=== PATIENT | male | born 1980 | race Caucasian/White ===

== ENCOUNTER 2017-04-09 10:26 | Inpatient (IN) | payer BC, OTHER ==
[2017-04-09 10:37] VITALS: BMI 27.7
[2017-04-09] MEDS ORDERED: KETOROLAC TROMETHAMINE 60 MG/2 ML VIAL IM ONE (10:42)
--- NOTE | 2017-04-09 10:45 | PDOC ---
History of Present Illness - General Chief Complaint: Pain Stated Complaint: ABDOMINAL PAIN Time Seen by Provider: 04/09/17 10:31 History Source: Patient Exam Limitations: No Limitations - History of Present Illness Travel History: No Initial Comments: 04/09/17 10:41 36y M no pmhx presents with lower abdominal pain. The pt states that he was fine until around 4pm yesterday when he started to feel pain n the lower abdomen. it came and went, lasting for seconds. when he went to bed it worsened and he vomited nbnb contents and felt better. the pain was about 8/10 at this point and nonradiating. he went to bed feeling a bit better, but still mild discomfort. this morning he drank some tea and the pain worsened. pt denies any fever/chills, diarrhea, meelan, bpr. he went to urgent care this morning and was referred to the ED. he also notes his urine is alittle dark pt denies any cp, sob, back pain, testicular pain, dysuria. Past History - Past Medical History Allergies/Adverse Reactions: Allergies Allergy/AdvReac Type Severity Reaction Status Date / Time No Known Allergies Allergy Verified 04/09/17 10:37 Home Medications: Ambulatory Orders NK [No Known Home Medication] 04/09/17 COPD: No - Immunization History TDAP Vaccination: Yes (JUNE 2016) - Suicide/Smoking/Psychosocial Hx Smoking History: Never smoked Hx Alcohol Use: Yes (SOCIAL) Drug/Substance Use Hx: No Substance Use Type: None Review of Systems - Review of Systems Able to Perform ROS?: Yes Comments:: 04/09/17 10:44 Constitutional - no reported Fever, Chills, HEENT: no reported vision changes, sore throat Respiratory: no reported cough, sob, hemoptysis Cardiac: no reported chest pain, palpitations, light headedness, leg swelling Abd/GI: +abd pain, nausea, vomiting, no reported blood per rectum, melena, diarrhea : no reported dysuria, frequency, discharge Musculskelatal - no reported back pain, joint swelling skin - no reported bruising, erythema, rash neurological: no reported headache, numbness, focal weakness, tingling, ataxia, hematologic: no reported anemia, easy bruising, easy bleeding *Physical Exam - Vital Signs Last Vital Signs Temp Pulse Resp BP Pulse Ox 99.7 F H 102 H 15 157/84 98 04/09/17 10:27 04/09/17 10:27 04/09/17 10:27 04/09/17 10:27 04/09/17 10:27 - Physical Exam Comments: 04/09/17 10:45 GENERAL: The patient is awake, alert, and fully oriented, Nontoxic - in no acute distress. HEAD: Normocephalic, atraumatic. EYES: extraocular movements intact, sclera anicteric, conjunctiva clear. ENT: Normal voice, Moist mucous membranes. NECK: Normal range of motion, supple LUNGS: Breath sounds equal, clear to auscultation bilaterally. No wheezes, no rhonchi, no rales. HEART: Regular rate and rhythm, normal S1 and S2 without murmur, rub or gallop. ABDOMEN: Soft, mild lower abd tenderness , normoactive bowel sounds. No guarding, no rebound. No CVA tenderness EXTREMITIES: Normal range of motion, no edema. No clubbing or cyanosis. No cords, erythema, or tenderness. NEUROLOGICAL: No facial assymetry, Normal speech, PSYCH: Normal mood, normal affect. SKIN: Warm, Dry, normal turgor, Heart Score/ECG Review - ECG Impressions Comment:: 04/09/17 14:39 Twelve-lead EKG was performed and reviewed by me. There is normal sinus rhythm with a normal rate. rate liliana 97 The axis is normal. The intervals are normal. There is normal R wave progression There are no ST or T wave abnormalities. Impression: Normal twelve-lead EKG ED Treatment Course - LABORATORY CBC & Chemistry Diagram: 04/09/17 10:50 04/09/17 10:50 Medical Decision Making - Medical Decision Making 04/09/17 10:45 differential for the pts symptoms includes kidney stones, diverticulitis will ck labs, ua will give toradol will reasess pt states he is not nauseus currently 04/09/17 12:06 pts albs reviewed noted for a significant elevation of WBCs to 23, neuts pending UA noted for +bili, pt w/o RUQ pain will ck CT abdomen to reasess pt currently asymptmoatic and feels hungry 04/09/17 13:10 ct noted free air in abdomen from possible sigmoid diverticulitis will draw lactic acid, blood cultures and will start pt on zosyn will notify surgery - [employer]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 04/09/17 13:[address] sprague rqeuests transfer to [facility] so that she can evaluate him there for possible OR immediately vs other plan case dw dr. baldwin (medical service) agree with admission and transfer to [facility] for further evaluation Case discussed in detail with admitting physician including history, physical exam and ancillary studies. Admitting physician has assumed care for the patient, will follow all pending diagnostics and will complete the evaluation and treatment. 04/09/17 15:42 dr. sprague here bedside evaluating the patient states pt can stay here at [facility] will watch pt here, and will do primary admission as it is primarily a surgical case. dr. hilario notified that this will be a surgical admission. *DC/Admit/Observation/Transfer Diagnosis at time of Disposition: Diverticulitis of intestine with perforation Qualifiers: Diverticulitis site: unspecified part of intestinal tract Diverticulitis bleeding: without bleeding Qualified Code(s): K57.80 - Diverticulitis of intestine, part unspecified, with perforation and abscess without bleeding - Discharge Dispostion Condition at time of disposition: Guarded Admit: Yes - Referrals - Patient Instructions - Post Discharge Activity
[2017-04-09] MEDS ORDERED: SODIUM CHLORIDE 1,000 ML IV ONE ×2 (10:54→13:25)
[2017-04-09] MEDS ORDERED: KETOROLAC TROMETHAMINE 30 MG/1 ML VIAL IVPUSH ONE (10:54)
[2017-04-09] MEDS ORDERED: KETOROLAC TROMETHAMINE 30 MG/1 ML VIAL ONE (10:54)
[2017-04-09 11:07] LABS: URINE APPEARANCE Clear; URINE BILIRUBIN 1+ (NEGATIVE); URINE BLOOD Negative (NEGATIVE); URINE GLUCOSE (UA) Negative (NEGATIVE); URINE KETONE Trace (NEGATIVE); URINE NITRITE Negative (NEGATIVE); URINE PROTEIN 1+ (NEGATIVE)
[2017-04-09 11:08] LABS: URINE COLOR YELLOW
[2017-04-09 11:10] LABS: HEMATOCRIT 43.6 % (35.4-49); HEMOGLOBIN 14.8 GM/dl (11.7-16.9); MCH 27.6 pg (25.7-33.7); MEAN CELL VOLUME 81.4 fl (80-96); MEAN PLT VOLUME 8.7 fl (7.5-11.1); PLATELET COUNT 234 K/MM3 (134-434); RBC 5.35 M/mm3 (4.00-5.60); RDW 11.9 % (11.9-15.9); WHITE BLOOD COUNT 23.5 K/mm3 (4.0-10.8)
[2017-04-09 11:26] LABS: ALBUMIN 4.4 g/dl (3.5-5.0); ALK PHOS 50 U/L (32-92); ANION GAP 10 (8-16); BILIRUBIN,TOTAL 1.4 mg/dl (0.2-1.0); BLOOD UREA NITROGEN 19 mg/dl (7-18); CALCIUM 9.3 mg/dl (8.4-10.2); CHLORIDE 102 mmol/L (98-107); CO2 24 mmol/L (22-28); GLUCOSE,RANDOM 116 mg/dl (74-106); POTASSIUM 3.8 mmol/L (3.5-5.1); SGOT/AST 26 U/L (10-42); SGPT/ALT 32 U/L (10-40); SODIUM 136 mmol/L (136-145); TOT PROT 7.4 g/dl (6.4-8.3)
[2017-04-09 12:34] LABS: URINE RBC 0-2 /hpf (0-3)
[2017-04-09 12:35] LABS: EPI CELLS 0-3 /HPF; URINE MUCUS 2+
[2017-04-09] MEDS ORDERED: PIPERACILLIN/TAZOB 4.5 GM/100 ML PREMIX BAG IVPB ONE (13:05)
[2017-04-09] MEDS ORDERED: PIPERACILLIN/TAZOB 4.5 GM 4.5 GM in DEXTROSE 5%-WATER - 100 ML IVPB ONE (13:30)
[2017-04-09] MEDS ORDERED: PIPERACILLIN/TAZOBACTAM 4.5 GM VIAL IVPB ONE (13:30)
[2017-04-09] MEDS ORDERED: SODIUM CHLORIDE 1,000 ML IV SCH ×2 (13:30)
[2017-04-09 13:58] LABS: INR 1.46 (0.82-1.09); PROTHROMBIN TIME (PATIENT) 16.2 SEC (10.2-13.0)
[2017-04-09 14:06] LABS: ACTIVATED PTT 29.6 SECONDS (24.0-38.9)
--- NOTE | 2017-04-09 15:19 | EKG ---
Test Reason : Blood Pressure : / mmHG Vent. Rate : 097 BPM Atrial Rate : 097 BPM P-R Int : 150 ms QRS Dur : 098 ms QT Int : 342 ms P-R-T Axes : 051 045 034 degrees QTc Int : 434 ms NORMAL SINUS RHYTHM NORMAL ECG NO PREVIOUS ECGS AVAILABLE Confirmed by ABEBA HENRY MD ([id number]) on 04/09/2017 3:19:21 PM Referred By: Newton HERNÁNDEZ Confirmed By:ABEBA HENRY MD
--- NOTE | 2017-04-09 15:54 | HP ---
Admitting History and Physical - Primary Care Physician PCP: between (was with Dr. Moran, plans to see Dr. Antionette Ramirez) - Admission Chief Complaint: hypogastric pain History of Present Illness: 36yo healthy M had pasta for dinner yesterday ~3pm, and later in the evening began having hypogastric pain. His also had some mild abdominal pain, so they thought it was something they both ate at first. His pain was dull with episodes of sharp exacerbation, without radiation, no urinary symptoms. He had a normal, soft bowel movement just before the pain started, and usually goes every day at least once without straining. Throughout the evening, the pain persisted, but he eventually tried to sleep. He did not take anything for it. He awoke ~2-3am to go to the bathroom, had soft stool, but also broke out in a sweat and felt warm, and vomited up the food he had eaten previously. He felt better afterward, the pain moved a bit upward into his central abdomen, and he was able to sleep better. In the morning, it was still feeling a little better, and he tried some plain chamomile tea, which made the pain come back a bit. He went to a local urgent care and was sent directly to the ER at [place]. In the ER, he was tachycardic ~102, had low-grade temp and a wbc of 23.5. Labs appeared somewhat dehydrated, and urine was dark. TBili was 1.4, other LFTs normal. CT was done with IV contrast only, showing mildly enlarged spleen, small right renal cyst, sigmoid diverticulitis with a mostly contained perforation in the pelvic mesentery, and a few locules of air in the nearby mesentery and above the liver. There is no lesley abscess or drainable fluid collection, and only a very small amount of fluid present in the pelvis and mesentery. He was given 2L of crystalloid and started on Zosyn 4.5g in the ER about 2pm. He also had a dose of Toradol, and has had minimal to no pain since. He has no nausea, and does not feel particularly warm or cold. For primary care, he has not seen Dr. Moran in some time, and believes he will be changing providers secondary to insurance issues. He plans to most likely see Dr. Ramirez, his 's PMD, after discharge. History Source: Patient Limitations to Obtaining History: No Limitations - Past Medical History Gastrointestinal: No: Constipation Dermatology: Yes: Eczema (more as child, still has some patches around ankles and on right thigh) - Past Surgical History Past Surgical History: Yes: Tonsillectomy (at 16) Additional Past Surgical History: right 4th finger tendon repair - Smoking History Smoking history: Never smoked Have you smoked in the past 12 months: No - Alcohol/Substance Use Hx Alcohol Use: Yes (SOCIAL) History of Substance Use: reports: Marijuana (weekends (1-2 days/wk)) Date of Last Use: 04/07/17 - Social History Usual Living Arrangement: Yes: With Spouse ADL: Independent 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 denies: Chills, Loss of Appetite Eyes: reports: Other (wears glasses). denies: Recent Change in Vision HENT: denies: Difficult Swallowing, Hearing Loss, Nasal Congestion, Throat Pain Neck: denies: Swollen Glands, Tenderness Cardiovascular: denies: Chest Pain, Palpitations Respiratory: denies: Cough, SOB Gastrointestinal: reports: Abdominal Pain (with hpi), Vomiting (once, with hpi) . denies: Constipation, Diarrhea, Nausea, Vomiting Blood Genitourinary: denies: Burning, Dysuria, Frequency, Urgency Musculoskeletal: denies: Back Pain, Joint Pain, Muscle Pain Integumentary: reports: Eczema, Pallor ( reports last night), Pruritis (some , at eczematous areas). denies: Rash Neurological: denies: Dizziness, Headache Psychiatric: denies: Anxiety, Depression Physical Examination Vital Signs: Vital Signs Temperature 99.3 F 04/09/17 14:26 Pulse Rate 94 H 04/09/17 14:26 Respiratory Rate 15 04/09/17 14:26 Blood Pressure 109/70 04/09/17 14:26 O2 Sat by Pulse Oximetry (%) 99 04/09/17 14:26 Vital Signs Period Temp Pulse Resp BP Sys/Kolb Pulse Ox Last 24 Hr 99.3 F-99.8 F 90-102 15-15 107-157/70-84 98-99 Constitutional: Yes: Well Nourished, No Distress, Calm Eyes: Yes: Conjunctiva Clear, EOM Intact. No: Sclera Icterus HENT: Yes: Atraumatic, Normocephalic Neck: Yes: Supple, Trachea Midline Cardiovascular: Yes: Tachycardia. No: Pulse Irregular, Murmur Respiratory: Yes: Regular, CTA Bilaterally Gastrointestinal: Yes: Soft, Hypoactive Bowel Sounds, Tenderness (suprapubic, mild bilateral pelvic/lower quadrants, no rebound or guarding; LLQ refers to suprapubic area). No: Distention (minimal to none), Tenderness, Epigastrium, Tenderness, Rebound ...Rectal Exam: Yes: Deferred Renal/: No: CVA Tenderness - Left, CVA Tenderness - Right Musculoskeletal: No: Back Pain (no direct tenderness), Joint Swelling Extremities: No: Cool, Cyanosis Edema: No Peripheral Pulses WNL: Yes Integumentary: Yes: Rash (small areas of scattered healing scratch berry at right anterior mcginnis just above ankle, mild eczematous patches at left ankle and right anterior thigh), Tattoos (L shoulder) Neurological: Yes: Alert, Oriented Psychiatric: Yes: Alert, Oriented Labs: CBC, BMP 04/09/17 10:50 04/09/17 10:50 CMP Sodium 136 mmol/L (136-145) 04/09/17 10:50 Potassium 3.8 mmol/L (3.5-5.1) 04/09/17 10:50 Chloride 102 mmol/L (98-107) 04/09/17 10:50 Carbon Dioxide 24 mmol/L (22-28) 04/09/17 10:50 Anion Gap 10 (8-16) 04/09/17 10:50 BUN 19 mg/dl (7-18) H 04/09/17 10:50 Creatinine 1.0 mg/dl (0.6-1.3) 04/09/17 10:50 Creat Clearance w eGFR > 60 (>60) 04/09/17 10:50 Random Glucose 116 mg/dl (74-106) H 04/09/17 10:50 Lactic Acid 1.1 mmol/L (0.4-2.0) 04/09/17 13:15 Calcium 9.3 mg/dl (8.4-10.2) 04/09/17 10:50 Total Bilirubin 1.4 mg/dl (0.2-1.0) H 04/09/17 10:50 AST 26 U/L (10-42) 04/09/17 10:50 ALT 32 U/L (10-40) 04/09/17 10:50 Alkaline Phosphatase 50 U/L (32-92) 04/09/17 10:50 Total Protein 7.4 g/dl (6.4-8.3) 04/09/17 10:50 Albumin 4.4 g/dl (3.5-5.0) 04/09/17 10:50 Urine Test Results Urine Color Yellow 04/09/17 10:50 Urine Appearance Clear 04/09/17 10:50 Urine pH 7.0 (4.5-8) 04/09/17 10:50 Ur Specific Moss 1.020 (1.005-1.025) 04/09/17 10:50 Urine Protein 1+ (NEGATIVE) H 04/09/17 10:50 Urine Glucose (UA) Negative (NEGATIVE) 04/09/17 10:50 Urine Ketones Trace (NEGATIVE) 04/09/17 10:50 Urine Blood Negative (NEGATIVE) 04/09/17 10:50 Urine Nitrite Negative (NEGATIVE) 04/09/17 10:50 Urine Bilirubin 1+ (NEGATIVE) H 04/09/17 10:50 Ur Leukocyte Esterase Negative (NEGATIVE) 04/09/17 10:50 Urine RBC 0-2 /hpf (0-3) 04/09/17 10:50 Urine WBC 3-5 (0-2) 04/09/17 10:50 Ur Epithelial Cells 0-3 /HPF 04/09/17 10:50 Urine Mucus 2+ 04/09/17 10:50 Imaging - Results Cat Scan: Report Reviewed, Image Reviewed Problem List - Problems (1) Diverticulitis of large intestine with perforation without abscess or bleeding Assessment/Plan: admit to surgery NPO/IVF - generous hydration IV antibiotics - consult ID to continue Zosyn IV nonnarcotic pain meds prn for now serial exams trend labs GI/DVT prophylaxis OOB/ambulation Discussed with pt and possibility of needing surgery urgently or emergently , if gross perforation or clinical deterioration - this would include laparotomy with partial colon resection, possible colostomy, possible diverting ileostomy, and drain placement. Briefly discussed potential risks including but not limited to bleeding, infection, bowel injury or leak, intraabdominal/pelvic abscess, hernia, anastomotic leak or breakdown, possible need for additional surgery for stoma reversal. Pt understands and agrees with plan for now - no OR unless evidence of lesley perforation, decline in clinical status, or lack of improvement in labs and clinical exam on antibiotics. Anticipate pt will spend at least two midnights in hospital. No po until no pain or tenderness. Ultimately, will plan to complete abx po once tolerating for total 10-14 days, as per ID. Code(s): K57.20 - DVTRCLI OF LG INT W PERFORATION AND ABSCESS W/O BLEEDING (2) Abdominal pain, suprapubic Code(s): R10.2 - PELVIC AND PERINEAL PAIN (3) Dehydration Assessment/Plan: rehydration with IV fluids monitor UOP Code(s): E86.0 - DEHYDRATION (4) Sinus tachycardia Code(s): R00.0 - TACHYCARDIA, UNSPECIFIED (5) Leukocytosis Code(s): D72.829 - ELEVATED WHITE BLOOD CELL COUNT, UNSPECIFIED Qualifiers: Leukocytosis type: bandemia Qualified Code(s): D72.825 - Bandemia
[2017-04-09] MEDS ORDERED: ONDANSETRON 4 MG/2 ML VIAL IVPUSH PRN (16:26)
[2017-04-09] MEDS ORDERED: LACTATED RINGERS SOLUTION 1,000 ML IV SCH (16:30)
--- NOTE | 2017-04-09 20:50 | CON.ID ---
Consult Consult Specialty:: infectious diseases Referred by:: Dr Salter Reason for Consultation:: abd pain - History of Present Illness Chief Complaint: abd pain History of Present Illness: 36yo healthy admitted because of hypogastric pain. According to the patient the pain was intense sat night followed by vomiting .He thought that the pain would go away and waited all night Pain did not go away and patient came to the hospital yesterday. patient was worked up in the hospital and found to have diverticulitis with contained perforation . Before coming to the hospital patient went to urgent care and was send to the hospital patient currently feels better and says his pain has now shifted to midline patient was tachy with fever and leukocytosis ct showed the findings of contained perf and diverticulitis patient has been evaluated by surgery also patient mentions that he had vomiting episodes - History Source History Provided By: Patient Limitations to Obtaining History: No Limitations - Past Medical History Gastrointestinal: No: Constipation Dermatology: Yes: Eczema (more as child, still has some patches around ankles and on right thigh) - Past Surgical History Past Surgical History: Yes: Tonsillectomy (at 16) - Alcohol/Substance Use Hx Alcohol Use: Yes (SOCIAL) History of Substance Use: reports: Marijuana (weekends (1-2 days/wk)) Date of Last Use: 04/07/17 - Smoking History Smoking history: Never smoked Have you smoked in the past 12 months: No - Social History ADL: Independent 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 Home Medications - Allergies Allergies/Adverse Reactions: Allergies Allergy/AdvReac Type Severity Reaction Status Date / Time No Known Allergies Allergy Verified 04/09/17 10:37 - Home Medications Home Medications: Ambulatory Orders NK [No Known Home Medication] 04/09/17 Family Disease History - Family Disease History Family Disease History: CA: Father (lung, alive at 86), Mother (breast in late 20s (1980s), alive) Review of Systems - Review of Systems Constitutional: reports: No Symptoms Eyes: reports: No Symptoms HENT: reports: No Symptoms Neck: reports: No Symptoms Cardiovascular: reports: No Symptoms Respiratory: reports: No Symptoms Gastrointestinal: reports: Abdominal Pain, Nausea, Vomiting Genitourinary: reports: No Symptoms Musculoskeletal: reports: No Symptoms Integumentary: reports: No Symptoms Neurological: reports: No Symptoms Endocrine: reports: No Symptoms Hematology/Lymphatic: reports: No Symptoms Psychiatric: reports: No Symptoms Physical Exam Vital Signs: Vital Signs Temperature 98.9 F 04/09/17 16:12 Pulse Rate 91 H 04/09/17 16:12 Respiratory Rate 16 04/09/17 16:23 Blood Pressure 133/76 04/09/17 16:12 O2 Sat by Pulse Oximetry (%) 98 04/09/17 16:23 Constitutional: Yes: Well Nourished, Calm, Mild Distress Eyes: Yes: Conjunctiva Clear HENT: Yes: Atraumatic, Normocephalic Cardiovascular: Yes: Regular Rate and Rhythm Respiratory: Yes: Regular, CTA Bilaterally Gastrointestinal: Yes: Distention, Hypoactive Bowel Sounds, Tenderness Musculoskeletal: Yes: WNL Extremities: Yes: WNL Neurological: Yes: Alert, Oriented Psychiatric: Yes: Alert, Oriented Labs: CBC, BMP 04/09/17 10:50 04/09/17 10:50 Imaging - Results Chest X-ray: Report Reviewed, Image Reviewed Cat Scan: Report Reviewed, Image Reviewed Assessment/Plan Problem List - Problems (1) Diverticulitis of large intestine with perforation without abscess or bleeding Code(s): K57.20 - DVTRCLI OF LG INT W PERFORATION AND ABSCESS W/O BLEEDING (2) Abdominal pain, suprapubic Code(s): R10.2 - PELVIC AND PERINEAL PAIN (3) Dehydration Code(s): E86.0 - DEHYDRATION (4) Sinus tachycardia Code(s): R00.0 - TACHYCARDIA, UNSPECIFIED (5) Leukocytosis Code(s): D72.829 - ELEVATED WHITE BLOOD CELL COUNT, UNSPECIFIED Qualifiers: Leukocytosis type: bandemia Qualified Code(s): D72.825 - Bandemia looking at the picture and patient having findings of pneumoperitoneum and contained perf with diverticulitis,patient is going to need abx and very close monitoring at the moment i have discussed with the patient that we will see how the patient does on abx plan continue current abx as per surgery very close monitoring on wbc and general condition rest as per primary team wbc has started to improve
[2017-04-09] MEDS: ACETAMINOPHEN 1000 MG/100 ML VIAL (NON FORMULARY) IVPB PRN (21:30)
[2017-04-09] MEDS: PIPERACILLIN/TAZOB 4.5 GM 4.5 GM in DEXTROSE 5%-WATER - 100 ML IVPB SCH (21:31)
[2017-04-09] MEDS: PIPERACILLIN/TAZOB 4.5 GM 4.5 GM/100 ML BAG IVPB SCH (21:43)
[2017-04-09] MEDS ORDERED: FAMOTIDINE IV 20 MG/12 ML VIAL IVPUSH SCH (22:00)
[2017-04-09] MEDS: FAMOTIDINE 20 MG/50 ML IVPB 20 MG/50 ML MG IVPB SCH (22:46)
[2017-04-10] MEDS: ACETAMINOPHEN 1000 MG/100 ML VIAL (NON FORMULARY) IVPB PRN ×2 (04:31→18:32)
[2017-04-10] MEDS: PIPERACILLIN/TAZOB 4.5 GM 4.5 GM/100 ML BAG IVPB SCH ×3 (05:09→20:47)
[2017-04-10 07:55] LABS: ACTIVATED PTT 29.5 SECONDS (24.0-38.9)
[2017-04-10 08:00] LABS: INR 1.57 (0.82-1.09); PROTHROMBIN TIME (PATIENT) 17.4 SEC (10.2-13.0)
[2017-04-10 08:12] LABS: ALBUMIN 3.3 g/dl (3.5-5.0); ALK PHOS 43 U/L (32-92); ANION GAP 4 (8-16); BILIRUBIN,TOTAL 1.5 mg/dl (0.2-1.0); BLOOD UREA NITROGEN 14 mg/dl (7-18); CHLORIDE 107 mmol/L (98-107); CO2 23 mmol/L (22-28); CREATININE 1.1 mg/dl (0.6-1.3); GLUCOSE,RANDOM 106 mg/dl (74-106); MAGNESIUM 1.7 mg/dL (1.8-2.4); POTASSIUM 3.8 mmol/L (3.5-5.1); SGOT/AST 18 U/L (10-42); SGPT/ALT 20 U/L (10-40); SODIUM 134 mmol/L (136-145); TOT PROT 5.9 g/dl (6.4-8.3)
[2017-04-10 08:26] LABS: HEMATOCRIT 36.4 % (35.4-49); HEMOGLOBIN 12.9 GM/dl (11.7-16.9); MCH 28.9 pg (25.7-33.7); MCHC 35.3 g/dl (32.0-35.9); MEAN CELL VOLUME 81.6 fl (80-96); MEAN PLT VOLUME 9.1 fl (7.5-11.1); PLATELET COUNT 150 K/MM3 (134-434); RBC 4.46 M/mm3 (4.00-5.60); RDW 12.3 % (11.9-15.9); WHITE BLOOD COUNT 16.2 K/mm3 (4.0-10.8)
[2017-04-10] MEDS ORDERED: MAGNESIUM SULF 50% (8.12 MEQ/2 ML-1 GM VIAL) IVPB ONE ×2 (09:04→10:00)
--- NOTE | 2017-04-10 09:11 | PN ---
Progress Note, Physician Chief Complaint: lower abdominal pain History of Present Illness: No overnight events. Pt has had 2 doses of IV Tylenol. Pain is a bit better, "more sore now than sharp." Has moved upward a little bit. No nausea or vomiting. Passing gas, but no BMs here yet. No fever. Urinating at least 4-5 times, much marine extension agent. Has been OOB to bathroom. Able to sleep. - Current Medication List Current Medications: Active Medications Acetaminophen (Ofirmev Injection -) 1,000 mg IVPB Q6H PRN PRN Reason: PAIN Last Admin: 04/10/17 04:31 Dose: 1,000 mg Famotidine/Sodium Chloride (Pepcid 20 Mg Premixed Ivpb -) 20 mg in 50 mls @ 144 mls/hr IVPB BID NATALIE Last Admin: 04/09/17 22:46 Dose: 144 mls/hr Piperacillin/Tazobactam/Dextrose (Zosyn 4.5gm Ivpb (Premix)) 4.5 gm in 100 mls @ 200 mls/hr IVPB Q8H NATALIE PRN Reason: Protocol Last Admin: 04/10/17 05:09 Dose: 200 mls/hr Potassium Chloride/Dextrose/Sod Cl (D5-1/2ns+20 Meq Kcl -) 20 meq in 1,000 mls @ 125 mls/hr IV ASDIR NATALIE Magnesium Sulfate (Magnesium Sulfate) 2 gm IVPB ONCE ONE Stop: 04/10/17 09:05 Ondansetron HCl (Zofran Injection) 4 mg IVPUSH Q6H PRN PRN Reason: NAUSEA - Objective Vital Signs: Vital Signs Temperature 99.0 F 04/10/17 04:00 Pulse Rate 94 H 04/10/17 04:00 Respiratory Rate 16 04/10/17 08:36 Blood Pressure 130/71 04/10/17 04:00 O2 Sat by Pulse Oximetry (%) 98 04/09/17 16:23 Vital Signs Period Temp Pulse Resp BP Sys/Kolb Pulse Ox Last 24 Hr 98.9 F-99.8 F 90-102 15-18 107-157/70-84 98-99 Constitutional: Yes: Well Nourished, No Distress, Calm Eyes: Yes: Conjunctiva Clear, EOM Intact. No: Sclera Icterus HENT: Yes: Atraumatic, Normocephalic Cardiovascular: Yes: Tachycardia (mild). No: Pulse Irregular Respiratory: Yes: Regular, CTA Bilaterally Gastrointestinal: Yes: Normal Bowel Sounds, Soft, Distention (minimal), Tenderness (suprapubic and to bilateral sides, no R/G, subjectively less tender than yesterday, objectively about the same). No: Tenderness, Epigastrium ...Rectal Exam: Yes: Deferred Extremities: Yes: Other (SCDs on). No: Cool, Cyanosis Integumentary: Yes: Tattoos. No: Jaundice Neurological: Yes: Alert, Oriented Psychiatric: Yes: Alert, Oriented Labs: CBC, BMP 04/10/17 07:30 04/10/17 07:30 INR, PTT INR 1.57 (0.82-1.09) H 04/10/17 07:30 CMP Sodium 134 mmol/L (136-145) L 04/10/17 07:30 Potassium 3.8 mmol/L (3.5-5.1) 04/10/17 07:30 Chloride 107 mmol/L (98-107) 04/10/17 07:30 Carbon Dioxide 23 mmol/L (22-28) 04/10/17 07:30 Anion Gap 4 (8-16) L 04/10/17 07:30 BUN 14 mg/dl (7-18) D 04/10/17 07:30 Creatinine 1.1 mg/dl (0.6-1.3) 04/10/17 07:30 Creat Clearance w eGFR > 60 (>60) 04/10/17 07:30 Random Glucose 106 mg/dl (74-106) 04/10/17 07:30 Lactic Acid 1.1 mmol/L (0.4-2.0) 04/09/17 13:15 Calcium 8.0 mg/dl (8.4-10.2) L 04/10/17 07:30 Magnesium 1.7 mg/dL (1.8-2.4) L 04/10/17 07:30 Total Bilirubin 1.5 mg/dl (0.2-1.0) H 04/10/17 07:30 AST 18 U/L (10-42) D 04/10/17 07:30 ALT 20 U/L (10-40) D 04/10/17 07:30 Alkaline Phosphatase 43 U/L (32-92) 04/10/17 07:30 Total Protein 5.9 g/dl (6.4-8.3) L D 04/10/17 07:30 Albumin 3.3 g/dl (3.5-5.0) L D 04/10/17 07:30 wbc down, renal fxn about the same INR still elevated bili still mildly elevated Mg low - will replete Problem List - Problems (1) Diverticulitis of large intestine with perforation without abscess or bleeding Assessment/Plan: continue NPO/IVF - will change fluids to maintenance IV antibiotics - Zosyn per ID IV nonnarcotic pain meds prn for now serial exams trend labs GI/DVT prophylaxis OOB/ambulation - encouraged to be up walking Feeling a little better, exam stable to slightly improved. Replete magnesium, follow labs Code(s): K57.20 - DVTRCLI OF LG INT W PERFORATION AND ABSCESS W/O BLEEDING (2) Abdominal pain, suprapubic Code(s): R10.2 - PELVIC AND PERINEAL PAIN (3) Dehydration Assessment/Plan: continue IV fluids monitor UOP - most voids not recorded, as pt reports 4-5 since yesterday follow labs Code(s): E86.0 - DEHYDRATION (4) Sinus tachycardia Assessment/Plan: improving Code(s): R00.0 - TACHYCARDIA, UNSPECIFIED (5) Leukocytosis Assessment/Plan: improving Code(s): D72.829 - ELEVATED WHITE BLOOD CELL COUNT, UNSPECIFIED Qualifiers: Leukocytosis type: bandemia Qualified Code(s): D72.825 - Bandemia
[2017-04-10] MEDS: FAMOTIDINE 20 MG/50 ML IVPB 20 MG/50 ML MG IVPB SCH ×2 (09:19→23:29)
[2017-04-10] MEDS: D5-1/2NS+20 MEQ KCL - 20 MEQ/1,000 ML INFUS.BAG IV SCH (09:50)
[2017-04-10] MEDS ORDERED: PT OWN MED DRAWER 7, Y5N ONE (20:45)
[2017-04-11] MEDS: ACETAMINOPHEN 1000 MG/100 ML VIAL (NON FORMULARY) IVPB PRN (01:39)
[2017-04-11] MEDS: PIPERACILLIN/TAZOB 4.5 GM 4.5 GM/100 ML BAG IVPB SCH ×3 (05:30→22:01)
[2017-04-11] MEDS ORDERED: PT OWN MED DRAWER 7, Y5N ONE ×2 (06:07→21:58)
[2017-04-11 08:12] LABS: BASO % 0.2 % (0-2.0); EOS % 0.7 % (0-4.5); HEMATOCRIT 37.6 % (35.4-49); HEMOGLOBIN 12.7 GM/dl (11.7-16.9); LYMPH % 8.4 % (8-40); MCH 27.8 pg (25.7-33.7); MCHC 33.8 g/dl (32.0-35.9); MEAN CELL VOLUME 82.2 fl (80-96); MEAN PLT VOLUME 8.1 fl (7.5-11.1); MONO % 5.5 % (3.8-10.2); NEUT % 85.2 % (42.8-82.8); PLATELET COUNT 193 K/MM3 (134-434); RBC 4.57 M/mm3 (4.00-5.60); RDW 12.2 % (11.9-15.9); WHITE BLOOD COUNT 13.9 K/mm3 (4.0-10.8)
[2017-04-11 08:30] LABS: INR 1.35 (0.82-1.09)
[2017-04-11 08:44] LABS: ALBUMIN 2.9 g/dl (3.5-5.0); ALK PHOS 71 U/L (32-92); ANION GAP 7 (8-16); BILIRUBIN,TOTAL 1.1 mg/dl (0.2-1.0); BLOOD UREA NITROGEN 10 mg/dl (7-18); CALCIUM 8.2 mg/dl (8.4-10.2); CHLORIDE 106 mmol/L (98-107); CO2 23 mmol/L (22-28); GLUCOSE,RANDOM 122 mg/dl (74-106); MAGNESIUM 2.1 mg/dL (1.8-2.4); POTASSIUM 4.3 mmol/L (3.5-5.1); SGOT/AST 20 U/L (10-42); SGPT/ALT 18 U/L (10-40); SODIUM 136 mmol/L (136-145); TOT PROT 5.7 g/dl (6.4-8.3)
[2017-04-11] MEDS: FAMOTIDINE 20 MG/50 ML IVPB 20 MG/50 ML MG IVPB SCH ×2 (10:11→22:00)
--- NOTE | 2017-04-11 10:23 | PN ---
Progress Note, Physician Chief Complaint: lower abdominal pain History of Present Illness: No overnight events. Pain is better, did not use Tylenol until last evening and overnight. No nausea or vomiting. Passing gas, but no BMs yet. 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 Has been ambulating in halls. - Current Medication List Current Medications: Active Medications Acetaminophen (Ofirmev Injection -) 1,000 mg IVPB Q6H PRN PRN Reason: PAIN Last Admin: 04/11/17 01:39 Dose: 1,000 mg Famotidine/Sodium Chloride (Pepcid 20 Mg Premixed Ivpb -) 20 mg in 50 mls @ 144 mls/hr IVPB BID NATALIE Last Admin: 04/11/17 10:11 Dose: 144 mls/hr Piperacillin/Tazobactam/Dextrose (Zosyn 4.5gm Ivpb (Premix)) 4.5 gm in 100 mls @ 200 mls/hr IVPB Q8H NATALIE PRN Reason: Protocol Last Admin: 04/11/17 05:30 Dose: 200 mls/hr Potassium Chloride/Dextrose/Sod Cl (D5-1/2ns+20 Meq Kcl -) 20 meq in 1,000 mls @ 125 mls/hr IV ASDIR NATALIE Last Admin: 04/10/17 09:50 Dose: 125 mls/hr Ondansetron HCl (Zofran Injection) 4 mg IVPUSH Q6H PRN PRN Reason: NAUSEA - Objective Vital Signs: Vital Signs Temperature 99.1 F 04/11/17 05:58 Pulse Rate 86 04/11/17 05:58 Respiratory Rate 18 04/11/17 09:10 Blood Pressure 126/78 04/11/17 05:58 O2 Sat by Pulse Oximetry (%) 98 04/11/17 09:10 Constitutional: Yes: Well Nourished, No Distress, Calm Eyes: Yes: Conjunctiva Clear, EOM Intact. No: Sclera Icterus HENT: Yes: Atraumatic, Normocephalic Cardiovascular: Yes: Tachycardia (mild - improved). No: Pulse Irregular Respiratory: Yes: Regular, CTA Bilaterally Gastrointestinal: Yes: Soft, Hypoactive Bowel Sounds (little more in upper abdomen), Tenderness (suprapubic and LLQ, mild LUQ, no R/G). No: Distention ( minimal), Tenderness, Epigastrium, Tenderness, Rebound ...Rectal Exam: Yes: Deferred Genitourinary: No: CVA Tenderness - Left, CVA Tenderness - Right Extremities: No: Cool, Cyanosis Edema: No Peripheral Pulses WNL: Yes Integumentary: Yes: Tattoos. No: Jaundice Neurological: Yes: Alert, Oriented Psychiatric: Yes: Alert, Oriented Labs: CBC, BMP 04/11/17 07:30 04/11/17 07:30 INR, PTT INR 1.35 (0.82-1.09) H 04/11/17 07:30 CMP Sodium 136 mmol/L (136-145) 04/11/17 07:30 Potassium 4.3 mmol/L (3.5-5.1) 04/11/17 07:30 Chloride 106 mmol/L (98-107) 04/11/17 07:30 Carbon Dioxide 23 mmol/L (22-28) 04/11/17 07:30 Anion Gap 7 (8-16) L 04/11/17 07:30 BUN 10 mg/dl (7-18) D 04/11/17 07:30 Creatinine 1.0 mg/dl (0.6-1.3) 04/11/17 07:30 Creat Clearance w eGFR > 60 (>60) 04/11/17 07:30 Random Glucose 122 mg/dl (74-106) H 04/11/17 07:30 Lactic Acid 1.1 mmol/L (0.4-2.0) 04/09/17 13:15 Calcium 8.2 mg/dl (8.4-10.2) L 04/11/17 07:30 Magnesium 2.1 mg/dL (1.8-2.4) D 04/11/17 07:30 Total Bilirubin 1.1 mg/dl (0.2-1.0) H D 04/11/17 07:30 AST 20 U/L (10-42) 04/11/17 07:30 ALT 18 U/L (10-40) 04/11/17 07:30 Alkaline Phosphatase 71 U/L (32-92) D 04/11/17 07:30 Total Protein 5.7 g/dl (6.4-8.3) L 04/11/17 07:30 Albumin 2.9 g/dl (3.5-5.0) L 04/11/17 07:30 wbc down, INR down renal function ok K+, Mg normal bili down Problem List - Problems (1) Diverticulitis of large intestine with perforation without abscess or bleeding Assessment/Plan: continue NPO/IVF today, still with pain and tenderness IV antibiotics - Zosyn per ID IV nonnarcotic pain meds prn for now serial exams trend labs GI/DVT prophylaxis OOB/ambulation - encouraged to be up walking will order IS to encourage deep breathing Feeling better, exam improved. Will consider clears tomorrow pending status Overall making progress on abx Code(s): K57.20 - DVTRCLI OF LG INT W PERFORATION AND ABSCESS W/O BLEEDING (2) Abdominal pain, suprapubic Code(s): R10.2 - PELVIC AND PERINEAL PAIN (3) Dehydration Assessment/Plan: continue IV fluids resolving follow labs Code(s): E86.0 - DEHYDRATION (4) Sinus tachycardia Assessment/Plan: improving Code(s): R00.0 - TACHYCARDIA, UNSPECIFIED (5) Leukocytosis Assessment/Plan: improving Code(s): D72.829 - ELEVATED WHITE BLOOD CELL COUNT, UNSPECIFIED Qualifiers: Leukocytosis type: bandemia Qualified Code(s): D72.825 - Bandemia
[2017-04-11] MEDS: D5-1/2NS+20 MEQ KCL - 20 MEQ/1,000 ML INFUS.BAG IV SCH ×2 (14:00→21:59)
[2017-04-11] MEDS: PIPERACILLIN/TAZOB 4.5 GM 4.5 GM in DEXTROSE 5%-WATER - 100 ML IVPB SCH (15:13)
--- NOTE | 2017-04-11 18:56 | PN ---
Progress Note, Physician History of Present Illness: starting to feel better abd pain better - Current Medication List Current Medications: Active Medications Acetaminophen (Ofirmev Injection -) 1,000 mg IVPB Q6H PRN PRN Reason: PAIN Last Admin: 04/11/17 01:39 Dose: 1,000 mg Famotidine/Sodium Chloride (Pepcid 20 Mg Premixed Ivpb -) 20 mg in 50 mls @ 144 mls/hr IVPB BID NATALIE Last Admin: 04/11/17 10:11 Dose: 144 mls/hr Piperacillin/Tazobactam/Dextrose (Zosyn 4.5gm Ivpb (Premix)) 4.5 gm in 100 mls @ 200 mls/hr IVPB Q8H NATALIE PRN Reason: Protocol Last Admin: 04/11/17 14:25 Dose: 200 mls/hr Potassium Chloride/Dextrose/Sod Cl (D5-1/2ns+20 Meq Kcl -) 20 meq in 1,000 mls @ 125 mls/hr IV ASDIR NATALIE Last Admin: 04/11/17 14:00 Dose: 125 mls/hr Ondansetron HCl (Zofran Injection) 4 mg IVPUSH Q6H PRN PRN Reason: NAUSEA - Objective Vital Signs: Vital Signs Temperature 99.0 F 04/11/17 13:50 Pulse Rate 116 H 04/11/17 13:50 Respiratory Rate 17 04/11/17 13:50 Blood Pressure 136/89 04/11/17 13:50 O2 Sat by Pulse Oximetry (%) 97 04/11/17 13:50 Constitutional: Yes: No Distress, Calm Cardiovascular: Yes: Regular Rate and Rhythm Respiratory: Yes: Regular, CTA Bilaterally Gastrointestinal: Yes: Soft, Hypoactive Bowel Sounds Musculoskeletal: Yes: WNL Extremities: Yes: WNL Neurological: Yes: Alert, Oriented Psychiatric: Yes: Alert, Oriented Labs: CBC, BMP 04/11/17 07:30 04/11/17 07:30 INR, PTT INR 1.35 (0.82-1.09) H 04/11/17 07:30 Assessment/Plan Problem List - Problems (1) Diverticulitis of large intestine with perforation without abscess or bleeding Code(s): K57.20 - DVTRCLI OF LG INT W PERFORATION AND ABSCESS W/O BLEEDING (2) Abdominal pain, suprapubic Code(s): R10.2 - PELVIC AND PERINEAL PAIN (3) Dehydration Code(s): E86.0 - DEHYDRATION (4) Sinus tachycardia Code(s): R00.0 - TACHYCARDIA, UNSPECIFIED (5) Leukocytosis Code(s): D72.829 - ELEVATED WHITE BLOOD CELL COUNT, UNSPECIFIED Qualifiers: Leukocytosis type: bandemia Qualified Code(s): D72.825 - Bandemia plan continue current abx continue monitoring wbc surgery on case continue as per surgery
[2017-04-12] MEDS: ACETAMINOPHEN 1000 MG/100 ML VIAL (NON FORMULARY) IVPB PRN (04:15)
[2017-04-12] MEDS ORDERED: PT OWN MED DRAWER 7, Y5N ONE ×3 (05:07→21:16)
[2017-04-12] MEDS: PIPERACILLIN/TAZOB 4.5 GM 4.5 GM/100 ML BAG IVPB SCH ×3 (05:09→21:56)
[2017-04-12 09:01] LABS: BASO % 0.2 % (0-2.0); EOS % 1.7 % (0-4.5); HEMATOCRIT 35.8 % (35.4-49); HEMOGLOBIN 12.4 GM/dl (11.7-16.9); LYMPH % 11.5 % (8-40); MCH 28.6 pg (25.7-33.7); MCHC 34.7 g/dl (32.0-35.9); MEAN CELL VOLUME 82.4 fl (80-96); MONO % 9.3 % (3.8-10.2); NEUT % 77.3 % (42.8-82.8); PLATELET COUNT 197 K/MM3 (134-434); RBC 4.34 M/mm3 (4.00-5.60); RDW 12.1 % (11.9-15.9); WHITE BLOOD COUNT 12.7 K/mm3 (4.0-10.8)
[2017-04-12 09:07] LABS: ANION GAP 6 (8-16); BLOOD UREA NITROGEN 9 mg/dl (7-18); CALCIUM 8.3 mg/dl (8.4-10.2); CHLORIDE 107 mmol/L (98-107); CO2 24 mmol/L (22-28); CREATININE 0.9 mg/dl (0.6-1.3); GLUCOSE,RANDOM 112 mg/dl (74-106); POTASSIUM 4.1 mmol/L (3.5-5.1); SODIUM 137 mmol/L (136-145)
--- NOTE | 2017-04-12 09:24 | PN ---
Progress Note, Physician Chief Complaint: lower abdominal pain History of Present Illness: No overnight events. Pain is better, did not use Tylenol all day yesterday, had one early this am after waking from a weird dream with some mild cramping. No nausea or vomiting. Passing gas, had 2 BMs yesterday. Voiding light yellow. Has been ambulating in halls. Overall feeling better. - Current Medication List Current Medications: Active Medications Acetaminophen (Ofirmev Injection -) 1,000 mg IVPB Q6H PRN PRN Reason: PAIN Last Admin: 04/12/17 04:15 Dose: 1,000 mg Famotidine/Sodium Chloride (Pepcid 20 Mg Premixed Ivpb -) 20 mg in 50 mls @ 144 mls/hr IVPB BID NATALIE Last Admin: 04/11/17 22:00 Dose: 144 mls/hr Piperacillin/Tazobactam/Dextrose (Zosyn 4.5gm Ivpb (Premix)) 4.5 gm in 100 mls @ 200 mls/hr IVPB Q8H NATALIE PRN Reason: Protocol Last Admin: 04/12/17 05:09 Dose: 200 mls/hr Potassium Chloride/Dextrose/Sod Cl (D5-1/2ns+20 Meq Kcl -) 20 meq in 1,000 mls @ 125 mls/hr IV ASDIR NATALIE Last Admin: 04/11/17 21:59 Dose: 125 mls/hr Ondansetron HCl (Zofran Injection) 4 mg IVPUSH Q6H PRN PRN Reason: NAUSEA - Objective Vital Signs: Vital Signs Temperature 98.7 F 04/12/17 06:00 Pulse Rate 82 04/12/17 06:00 Respiratory Rate 18 04/12/17 06:00 Blood Pressure 135/76 04/12/17 06:00 O2 Sat by Pulse Oximetry (%) 98 04/12/17 06:00 Constitutional: Yes: Well Nourished, No Distress, Calm Eyes: Yes: Conjunctiva Clear, EOM Intact HENT: Yes: Atraumatic, Normocephalic Cardiovascular: Yes: Regular Rate and Rhythm, Tachycardia (minimal). No: Murmur Respiratory: Yes: Regular, CTA Bilaterally Gastrointestinal: Yes: Normal Bowel Sounds, Soft, Tenderness (mild suprapubic and LLQ, less to right side - less than yesterday). No: Distention, Tenderness , Epigastrium, Tenderness, Rebound Extremities: No: Cool, Cyanosis Edema: No Integumentary: No: Jaundice, Rash Neurological: Yes: Alert, Oriented Psychiatric: Yes: Alert, Oriented Labs: CBC, BMP 04/12/17 07:30 04/12/17 07:30 wbc decreasing renal function normal lytes, glucose ok Problem List - Problems (1) Diverticulitis of large intestine with perforation without abscess or bleeding Assessment/Plan: improving - will start clears for lunch continue IV antibiotics - Zosyn per ID Tylenol prn - change to po serial exams trend labs GI/DVT prophylaxis OOB/ambulation - encouraged to be up walking IS for pulmonary tachycardia resolved Feeling better, progressing well If tolerating diet tomorrow, consider changing to po abx and d/c planning Code(s): K57.20 - DVTRCLI OF LG INT W PERFORATION AND ABSCESS W/O BLEEDING (2) Abdominal pain, suprapubic Code(s): R10.2 - PELVIC AND PERINEAL PAIN (3) Dehydration Assessment/Plan: continue IVF for now resolved Code(s): E86.0 - DEHYDRATION (4) Sinus tachycardia Assessment/Plan: resolved Code(s): R00.0 - TACHYCARDIA, UNSPECIFIED (5) Leukocytosis Assessment/Plan: almost normal Code(s): D72.829 - ELEVATED WHITE BLOOD CELL COUNT, UNSPECIFIED Qualifiers: Leukocytosis type: bandemia Qualified Code(s): D72.825 - Bandemia
[2017-04-12] MEDS: D5-1/2NS+20 MEQ KCL - 20 MEQ/1,000 ML INFUS.BAG IV SCH (09:25)
[2017-04-12] MEDS ORDERED: ACETAMINOPHEN 325 MG TABLET (FP) PO PRN (09:26)
[2017-04-12] MEDS: FAMOTIDINE 20 MG/50 ML IVPB 20 MG/50 ML MG IVPB SCH ×2 (09:26→23:02)
--- NOTE | 2017-04-12 10:42 | PN ---
Progress Note, Physician History of Present Illness: did well yesterday patient had cramping abd pain early this morning had small bm overall has been improving wbc trending down - Current Medication List Current Medications: Active Medications Acetaminophen (Tylenol -) 650 mg PO Q6H PRN PRN Reason: PAIN Famotidine/Sodium Chloride (Pepcid 20 Mg Premixed Ivpb -) 20 mg in 50 mls @ 144 mls/hr IVPB BID NATALIE Last Admin: 04/12/17 09:26 Dose: 144 mls/hr Piperacillin/Tazobactam/Dextrose (Zosyn 4.5gm Ivpb (Premix)) 4.5 gm in 100 mls @ 200 mls/hr IVPB Q8H NATALEI PRN Reason: Protocol Last Admin: 04/12/17 05:09 Dose: 200 mls/hr Potassium Chloride/Dextrose/Sod Cl (D5-1/2ns+20 Meq Kcl -) 20 meq in 1,000 mls @ 125 mls/hr IV ASDIR NATALIE Last Admin: 04/12/17 09:25 Dose: 125 mls/hr Ondansetron HCl (Zofran Injection) 4 mg IVPUSH Q6H PRN PRN Reason: NAUSEA - Objective Vital Signs: Vital Signs Temperature 98.7 F 04/12/17 06:00 Pulse Rate 82 04/12/17 06:00 Respiratory Rate 18 04/12/17 06:00 Blood Pressure 135/76 04/12/17 06:00 O2 Sat by Pulse Oximetry (%) 98 04/12/17 06:00 Constitutional: Yes: No Distress, Calm Cardiovascular: Yes: Regular Rate and Rhythm Respiratory: Yes: Regular, CTA Bilaterally Gastrointestinal: Yes: Distention, Hypoactive Bowel Sounds Musculoskeletal: Yes: WNL Extremities: Yes: WNL Neurological: Yes: Alert, Oriented Psychiatric: Yes: Alert, Oriented Labs: CBC, BMP 04/12/17 07:30 04/12/17 07:30 INR, PTT INR 1.35 (0.82-1.09) H 04/11/17 07:30 Assessment/Plan Problem List - Problems (1) Diverticulitis of large intestine with perforation without abscess or bleeding Code(s): K57.20 - DVTRCLI OF LG INT W PERFORATION AND ABSCESS W/O BLEEDING (2) Abdominal pain, suprapubic Code(s): R10.2 - PELVIC AND PERINEAL PAIN (3) Dehydration Code(s): E86.0 - DEHYDRATION (4) Sinus tachycardia Code(s): R00.0 - TACHYCARDIA, UNSPECIFIED (5) Leukocytosis Code(s): D72.829 - ELEVATED WHITE BLOOD CELL COUNT, UNSPECIFIED Qualifiers: Leukocytosis type: bandemia Qualified Code(s): D72.825 - Bandemia wbc trending down plan continue current abx continue monitoring wbc rest continue as per surgery patient going in right direction
[2017-04-13] MEDS ORDERED: PT OWN MED DRAWER 7, Y5N ONE ×2 (05:49→14:04)
[2017-04-13] MEDS: PIPERACILLIN/TAZOB 4.5 GM 4.5 GM/100 ML BAG IVPB SCH ×2 (06:01→14:16)
[2017-04-13] MEDS ORDERED: PIPERACILLIN/TAZOBACTAM 4.5 GM VIAL IVPB ONE ×2 (09:15)
--- NOTE | 2017-04-13 09:23 | PN ---
Progress Note, Physician Chief Complaint: lower abdominal pain History of Present Illness: No overnight events. No nausea or vomiting. Has been ambulating in halls. Had large BM yesterday, started liquid, transitioned into formed stool. [place] much better afterward. This am, had sudden pain in suprapubic area, walking made a little better, tried to have BM, but without result. Currently feeling pain in suprapubic and lower pelvic areas. Had jello only this morning for breakfast so far. - Current Medication List Current Medications: Active Medications Acetaminophen (Tylenol -) 650 mg PO Q6H PRN PRN Reason: PAIN Famotidine/Sodium Chloride (Pepcid 20 Mg Premixed Ivpb -) 20 mg in 50 mls @ 144 mls/hr IVPB BID NATALIE Last Admin: 04/12/17 23:02 Dose: 144 mls/hr Piperacillin/Tazobactam/Dextrose (Zosyn 4.5gm Ivpb (Premix)) 4.5 gm in 100 mls @ 200 mls/hr IVPB Q8H NATALIE PRN Reason: Protocol Last Admin: 04/13/17 06:01 Dose: 200 mls/hr Potassium Chloride/Dextrose/Sod Cl (D5-1/2ns+20 Meq Kcl -) 20 meq in 1,000 mls @ 125 mls/hr IV ASDIR NATALIE Last Admin: 04/12/17 09:25 Dose: 125 mls/hr Ondansetron HCl (Zofran Injection) 4 mg IVPUSH Q6H PRN PRN Reason: NAUSEA - Objective Vital Signs: Vital Signs Temperature 98.5 F 04/13/17 06:00 Pulse Rate 89 04/13/17 06:00 Respiratory Rate 18 04/13/17 08:34 Blood Pressure 134/79 04/13/17 06:00 O2 Sat by Pulse Oximetry (%) 99 04/13/17 08:34 Constitutional: Yes: Well Nourished, Calm, Moderate Distress (secondary to pain) Eyes: Yes: Conjunctiva Clear, EOM Intact HENT: Yes: Atraumatic, Normocephalic Cardiovascular: Yes: Tachycardia (mild). No: Pulse Irregular Respiratory: Yes: Regular, CTA Bilaterally Gastrointestinal: Yes: Soft, Hypoactive Bowel Sounds, Tenderness (suprapubic and to right side more than left, no rebound). No: Distention (minimal to none) ...Rectal Exam: Yes: Deferred Extremities: No: Cool, Cyanosis Edema: No Integumentary: Yes: Tattoos. No: Jaundice, Rash Neurological: Yes: Alert, Oriented Psychiatric: Yes: Alert, Oriented Labs: CBC pending - ....Imaging Cat Scan: Pending Problem List - Problems (1) Diverticulitis of large intestine with perforation without abscess or bleeding Assessment/Plan: was tolerating clears, with sudden pain this am abdomen not markedly distended, but is locally tender continue IV antibiotics - Zosyn per ID will give morphine now/prn and return to npo cbc pending repeat CT scan now with PO/IV contrast further plans pending results Code(s): K57.20 - DVTRCLI OF LG INT W PERFORATION AND ABSCESS W/O BLEEDING (2) Abdominal pain, suprapubic Code(s): R10.2 - PELVIC AND PERINEAL PAIN (3) Dehydration Code(s): E86.0 - DEHYDRATION (4) Sinus tachycardia Code(s): R00.0 - TACHYCARDIA, UNSPECIFIED (5) Leukocytosis Code(s): D72.829 - ELEVATED WHITE BLOOD CELL COUNT, UNSPECIFIED Qualifiers: Leukocytosis type: bandemia Qualified Code(s): D72.825 - Bandemia
[2017-04-13] MEDS: FAMOTIDINE 20 MG/50 ML IVPB 20 MG/50 ML MG IVPB SCH (09:29)
[2017-04-13] MEDS ORDERED: morphine CARPU-JECT 2 MG/1 ML DISP.SYRIN IVPUSH PRN (09:40)
[2017-04-13] MEDS ORDERED: morphine SULFATE 4 MG/ML VIAL IVPUSH ONE (10:00)
[2017-04-13] MEDS: D5-1/2NS+20 MEQ KCL - 20 MEQ/1,000 ML INFUS.BAG IV SCH (10:15)
[2017-04-13 10:23] LABS: BASO % 1.1 % (0-2.0); HEMATOCRIT 38.7 % (35.4-49); HEMOGLOBIN 12.9 GM/dl (11.7-16.9); LYMPH % 15.4 % (8-40); MCH 27.5 pg (25.7-33.7); MCHC 33.4 g/dl (32.0-35.9); MEAN CELL VOLUME 82.3 fl (80-96); MEAN PLT VOLUME 8.3 fl (7.5-11.1); MONO % 7.5 % (3.8-10.2); PLATELET COUNT 241 K/MM3 (134-434); RBC 4.71 M/mm3 (4.00-5.60); RDW 12.1 % (11.9-15.9); WHITE BLOOD COUNT 8.1 K/mm3 (4.0-10.8)
[2017-04-13] MEDS: HYDROmorphone HCL CARPU-JECT 1 MG/1 ML DISP.SYRIN IVPB PRN ×3 (10:51→12:07)
--- NOTE | 2017-04-13 13:21 | PN ---
Progress Note, Physician History of Present Illness: patient being transferred to [place] for surgery - Current Medication List Current Medications: Active Medications Acetaminophen (Tylenol -) 650 mg PO Q6H PRN PRN Reason: PAIN Famotidine/Sodium Chloride (Pepcid 20 Mg Premixed Ivpb -) 20 mg in 50 mls @ 144 mls/hr IVPB BID NATALIE Last Admin: 04/13/17 09:29 Dose: 144 mls/hr Piperacillin/Tazobactam/Dextrose (Zosyn 4.5gm Ivpb (Premix)) 4.5 gm in 100 mls @ 200 mls/hr IVPB Q8H NATALIE PRN Reason: Protocol Last Admin: 04/13/17 06:01 Dose: 200 mls/hr Potassium Chloride/Dextrose/Sod Cl (D5-1/2ns+20 Meq Kcl -) 20 meq in 1,000 mls @ 125 mls/hr IV ASDIR [facility] Last Admin: 04/13/17 10:15 Dose: 125 mls/hr Morphine Sulfate (Morphine Injection -) 2 mg IVPUSH Q3H PRN PRN Reason: PAIN Ondansetron HCl (Zofran Injection) 4 mg IVPUSH Q6H PRN PRN Reason: NAUSEA - Objective Vital Signs: Vital Signs Temperature 98.5 F 04/13/17 06:00 Pulse Rate 104 H 04/13/17 12:13 Respiratory Rate 16 04/13/17 12:13 Blood Pressure 145/82 04/13/17 12:13 O2 Sat by Pulse Oximetry (%) 96 04/13/17 12:13 Labs: CBC, BMP 04/13/17 10:10 04/12/17 07:30 INR, PTT INR 1.35 (0.82-1.09) H 04/11/17 07:30
[2017-04-13] MEDS ORDERED: LACTATED RINGERS SOLUTION 1,000 ML/1,000 ML INFUS.BAG IV STA ×3 (16:02→23:54)
[2017-04-13] MEDS ORDERED: LACTATED RINGERS SOLUTION 1,000 ML/1,000 ML INFUS.BAG IV SCH (16:15)
--- NOTE | 2017-04-13 17:01 | PN ---
Progress Note (short form) - Note Progress Note: Pt had CT done, which shows pneumoperitoneum and more gas in pelvic mesentery than previously. He also now has temp 99s-100s and is tachycardic. Transferring to [facility] for surgical exploration. Spoke with patient's by phone. Will obtain consent when patient arrives. Plan exploratory laparotomy, bowel resection, possible ostomy. Problem List - Problems (1) Diverticulitis of large intestine with perforation without abscess or bleeding Code(s): K57.20 - DVTRCLI OF LG INT W PERFORATION AND ABSCESS W/O BLEEDING (2) Abdominal pain, suprapubic Code(s): R10.2 - PELVIC AND PERINEAL PAIN (3) Dehydration Code(s): E86.0 - DEHYDRATION (4) Sinus tachycardia Code(s): R00.0 - TACHYCARDIA, UNSPECIFIED (5) Leukocytosis Code(s): D72.829 - ELEVATED WHITE BLOOD CELL COUNT, UNSPECIFIED Qualifiers: Leukocytosis type: bandemia Qualified Code(s): D72.825 - Bandemia
[2017-04-13] MEDS ORDERED: MIDAZOLAM HCL 2 MG/2 ML SINGLE DOSE VIAL ONE ×2 (19:35→22:37)
[2017-04-13] MEDS ORDERED: VECURONIUM BROMIDE 10 MG VIAL ONE (19:36)
[2017-04-13] MEDS ORDERED: LIDOCAINE HCL/PF 2% SDV 5ML VIAL ONE (19:36)
[2017-04-13] MEDS ORDERED: DEXAMETHASONE SOD PHOSPHATE 4 MG/1 ML VIAL ONE ×2 (19:36→22:08)
[2017-04-13] MEDS ORDERED: ETOMIDATE 20 MG/10 ML AMPUL IVPUSH ONE (19:36)
[2017-04-13] MEDS ORDERED: SODIUM CHLORIDE 0.9% P/F 10 ML VIAL IJ ONE (19:36)
[2017-04-13] MEDS ORDERED: ONDANSETRON 4 MG/2 ML VIAL ONE ×2 (19:36→22:08)
[2017-04-13] MEDS ORDERED: fentaNYL CITRATE 250 MCG/5 ML VIAL ONE (20:19)
[2017-04-13] MEDS ORDERED: ROCURONIUM BROMIDE 50 MG/5 ML VIAL ONE (20:51)
[2017-04-13] MEDS ORDERED: PROPOFOL 20 ML ONE (22:15)
[2017-04-13] MEDS: PROPOFOL 1,000,000 MCG/100 ML VIAL IVPUSH SCH (23:00)
[2017-04-13] MEDS ORDERED: HYDROmorphone HCL CARPU-JECT 2 MG/1 ML DISP.SYRIN IVPUSH PRN ×2 (23:08→23:54)
[2017-04-13] MEDS ORDERED: PROPOFOL 1000 MG/100 ML VIAL IVPB ONE (23:10)
[2017-04-13] MEDS ORDERED: PROPOFOL 1,000,000 MCG/100 ML VIAL IVPUSH SCH (23:15)
[2017-04-13] MEDS ORDERED: LACTATED RINGERS SOLUTION 1,000 ML IV SCH ×3 (23:15→23:54)
--- NOTE | 2017-04-13 23:30 | CONSULT ---
Consult Consult Specialty:: Pulm/CCM Reason for Consultation:: s/p exploratory Lap and colectomy with colostomy - History of Present Illness History of Present Illness: 36yom with no PMHx who presented to [place] with lower abdominal pain n/v. He was found to have diverticulitis on CT. This am c/o increased abd pain. CT showed pneumoperitoneum and e/o diverticulitis rupture. He was transferred to [facility] for exploratory lap. He is now s/p ex-lap with partial colectomy and colostomy formation and kept intubated. He is transferred to ICU for post-op care In OR EBL~ 300 with 850cc ascites fluid. UOP 400 cc and received 2800cc fluid. - History Source History Provided By: Medical Record - Past Medical History Gastrointestinal: No: Constipation Dermatology: Yes: Eczema (more as child, still has some patches around ankles and on right thigh) - Past Surgical History Past Surgical History: Yes: Tonsillectomy (at 16) - Alcohol/Substance Use Hx Alcohol Use: Yes (SOCIAL) History of Substance Use: reports: Marijuana (weekends (1-2 days/wk)) Date of Last Use: 04/07/17 - Smoking History Smoking history: Never smoked Have you smoked in the past 12 months: No - Social History ADL: Independent Occupation: [employer] Medications - Allergies Allergies/Adverse Reactions: Allergies Allergy/AdvReac Type Severity Reaction Status Date / Time No Known Allergies Allergy Verified 04/09/17 10:37 - Home Medications Home Medications: Ambulatory Orders NK [No Known Home Medication] 04/09/17 Family Disease History - Family Disease History Family Disease History: CA: Father (lung, alive at 86), Mother (breast in late 20s (1980s), alive) Review of Systems Unable to obtain ROS, reason: Unable intubated Physical Exam Vital Signs: Vital Signs Temperature 100 F H 04/13/17 17:46 Pulse Rate 120 H 04/13/17 17:46 Respiratory Rate 18 04/13/17 17:46 Blood Pressure 120/66 04/13/17 17:46 O2 Sat by Pulse Oximetry (%) 94 L 04/13/17 17:46 Constitutional: Yes: Well Nourished, No Distress, Calm Eyes: Yes: WNL HENT: Yes: Atraumatic, Normocephalic, Other (orally intubated) Neck: Yes: Trachea Midline Cardiovascular: Yes: Regular Rate and Rhythm, S1 Respiratory: Yes: CTA Bilaterally, Intubated Gastrointestinal: Yes: Soft, Other (Mdline abd incision with LLQ colostomy- pin and patent) Renal/: Yes: [place] Present Extremities: Yes: WNL Edema: No Peripheral Pulses WNL: Yes Wound/Incision: Yes: Clean/Dry, Dressing Dry and Intact Neurological: Yes: Other (Sedated on Propofol drip) Labs: CBC, BMP 04/13/17 10:10 04/12/17 07:30 CBC,CMP WBC 8.1 K/mm3 (4.0-10.8) D 04/13/17 10:10 RBC 4.71 M/mm3 (4.00-5.60) 04/13/17 10:10 Hgb 12.9 GM/dl (11.7-16.9) 04/13/17 10:10 Hct 38.7 % (35.4-49) 04/13/17 10:10 MCV 82.3 fl (80-96) 04/13/17 10:10 MCH 27.5 pg (25.7-33.7) 04/13/17 10:10 MCHC 33.4 g/dl (32.0-35.9) 04/13/17 10:10 RDW 12.1 % (11.9-15.9) 04/13/17 10:10 Plt Count 241 K/MM3 (134-434) D 04/13/17 10:10 MPV 8.3 fl (7.5-11.1) 04/13/17 10:10 Absolute Neuts (auto) 6.0 # (42.8-82.8) L 04/13/17 10:10 Absolute Lymphs (auto) 1.2 # (8-40) L 04/13/17 10:10 Absolute Monos (auto) 0.6 # 04/13/17 10:10 Absolute Eos (auto) 0.2 # 04/13/17 10:10 Absolute Basos (auto) 0.1 # (0.1-1) 04/13/17 10:10 Neutrophils % 74.0 % (42.8-82.8) 04/13/17 10:10 Neutrophils % (Manual) 80.0 % (42.8-82.8) 04/09/17 10:50 Band Neutrophils % 8.0 % (0-10) 04/09/17 10:50 Lymphocytes % 15.4 % (8-40) D 04/13/17 10:10 Lymphocytes % (Manual) 6.0 % (8-40) L 04/09/17 10:50 Monocytes % 7.5 % (3.8-10.2) 04/13/17 10:10 Monocytes % (Manual) 6 % (3.8-10.2) 04/09/17 10:50 Eosinophils % 2.0 % (0-4.5) 04/13/17 10:10 Basophils % 1.1 % (0-2.0) D 04/13/17 10:10 Sodium 137 mmol/L (136-145) 04/12/17 07:30 Potassium 4.1 mmol/L (3.5-5.1) 04/12/17 07:30 Chloride 107 mmol/L (98-107) 04/12/17 07:30 Carbon Dioxide 24 mmol/L (22-28) 04/12/17 07:30 Anion Gap 6 (8-16) L 04/12/17 07:30 BUN 9 mg/dl (7-18) 04/12/17 07:30 Creatinine 0.9 mg/dl (0.6-1.3) 04/12/17 07:30 Creat Clearance w eGFR > 60 (>60) 04/11/17 07:30 Random Glucose 112 mg/dl (74-106) H 04/12/17 07:30 Lactic Acid 1.1 mmol/L (0.4-2.0) 04/09/17 13:15 Calcium 8.3 mg/dl (8.4-10.2) L 04/12/17 07:30 Magnesium 2.1 mg/dL (1.8-2.4) D 04/11/17 07:30 Total Bilirubin 1.1 mg/dl (0.2-1.0) H D 04/11/17 07:30 AST 20 U/L (10-42) 04/11/17 07:30 ALT 18 U/L (10-40) 04/11/17 07:30 Alkaline Phosphatase 71 U/L (32-92) D 04/11/17 07:30 Total Protein 5.7 g/dl (6.4-8.3) L 04/11/17 07:30 Albumin 2.9 g/dl (3.5-5.0) L 04/11/17 07:30 Current Medications Acetaminophen (Tylenol -) 650 mg PO Q6H PRN PRN Reason: PAIN Hydromorphone HCl (Dilaudid Injection -) 2 mg IVPUSH [id number] PRN PRN Reason: PAIN Famotidine/Sodium Chloride (Pepcid 20 Mg Premixed Ivpb -) 20 mg in 50 mls @ 144 mls/hr IVPB BID NATALIE Last Admin: 04/13/17 09:29 Dose: 144 mls/hr Piperacillin/Tazobactam/Dextrose (Zosyn 4.5gm Ivpb (Premix)) 4.5 gm in 100 mls @ 200 mls/hr IVPB Q8H NATLAIE PRN Reason: Protocol Last Admin: 04/13/17 14:16 Dose: 200 mls/hr Propofol (Diprivan -) 1,000,000 mcg in 100 mls @ 5.715 mls/hr IVPUSH TITR NATALIE; 10 MCG/KG/MIN PRN Reason: Protocol Lactated Ringer's (Lactated Ringers Solution) 1,000 ml in 1,000 mls @ 1,000 mls /hr IV ONCE STA Stop: 04/14/17 00:41 Lactated Ringer's (Lactated Ringers Solution) 1,000 mls @ 200 mls/hr IV ASDIR NATALIE Morphine Sulfate (Morphine Injection -) 2 mg IVPUSH Q3H PRN PRN Reason: PAIN Last Admin: 04/13/17 16:24 Dose: 2 mg Ondansetron HCl (Zofran Injection) 4 mg IVPUSH Q6H PRN PRN Reason: NAUSEA Initial Vital Signs Temp Pulse Resp BP Pulse Ox 99.7 F H 102 H 15 157/84 98 04/09/17 10:27 04/09/17 10:27 04/09/17 10:27 04/09/17 10:27 04/09/17 10:27 Imaging - Results Chest X-ray: Report Reviewed Cat Scan: Report Reviewed Problem List - Problems (1) Abdominal pain, suprapubic Code(s): R10.2 - PELVIC AND PERINEAL PAIN (2) Diverticulitis of intestine with perforation Code(s): K57.80 - DVTRCLI OF INTEST, PART UNSP, W PERF AND ABSCESS W/O BLEED Qualifiers: Diverticulitis site: unspecified part of intestinal tract Diverticulitis bleeding: without bleeding Qualified Code(s): K57.80 - Diverticulitis of intestine, part unspecified, with perforation and abscess without bleeding (3) Diverticulitis of large intestine with perforation without abscess or bleeding Code(s): K57.20 - DVTRCLI OF LG INT W PERFORATION AND ABSCESS W/O BLEEDING (4) Leukocytosis Code(s): D72.829 - ELEVATED WHITE BLOOD CELL COUNT, UNSPECIFIED Qualifiers: Leukocytosis type: bandemia Qualified Code(s): D72.825 - Bandemia (5) Sinus tachycardia Code(s): R00.0 - TACHYCARDIA, UNSPECIFIED Assessment/Plan 36yom with no PMHx admitted with abd pain c/b perforated bowel now s/p ex-lap with sigmoid colectomy and colostomy formation. He is transferred to ICU intubated for post-op care. Plan: Resp: Intubated -LTVV -Pulm toilet -Sedation for vent synchrony with propofol -SBT for extubation in am -ABG -CXR GI: Post-op sigmoid colectomy and colostomy formation -NGT to LWS -Assess for bleeding -Fluid bolus and IVF for post-op 3rd spacing -Monitor I+O's -Cont empiric antibiotics with zosyn -Pain management-prn Fent/Dilaudid pushes -Monitor CBC and lactate Proph: DVT and GI ANDRIA Yeh CC time 35mins
--- NOTE | 2017-04-13 23:58 | OP ---
Operative Note - Note: Operative Date: 04/13/17 Pre-Operative Diagnosis: perforated sigmoid diverticulitis Operation: sigmoidectomy with colostomy (Gerri's procedure) Findings: sigmoid perforation in pelvis with gross contamination; ~800ml ascites suctioned out, culture taken on entry; resection of affected segment and end colostomy performed; 57mm ostomy appliance used; skin packed open above and below umbilicus Post-Operative Diagnosis: Same as Pre-op Surgeon: Dom Avalos Telephony Engineer: Ibrahima Macedo Anesthesiologist/MANIFEST/ORDER ORGANIZER PRINT ORDERS: William Flores Anesthesia: General Specimens Removed: sigmoid colon to pathology; peritoneal fluid culture to micro Estimated Blood Loss (mls): 300 Drains & Tubes with Location: NG, Hatch, colostomy Drains, Volume Out (mls): 400 (UOP) Fluid Volume Replaced (mls): 2,800 (crystalloid) Operative Report Dictated: Yes
[2017-04-14 00:18] LABS: ARTERIAL BLD GAS O2 SATURATION 98.9 % (90-98.9); ARTERIAL BLOOD GAS BASE EXCESS -3.3 meq/l (-2-2); ARTERIAL BLOOD GAS PCO2 35.2 mmHg (35-45); ARTERIAL BLOOD GAS pH 7.38 (7.35-7.45)
[2017-04-14 00:20] LABS: ALLENS TEST POSITIVE
[2017-04-14] MEDS ORDERED: PIPERACILLIN/TAZOB 4.5 GM 4.5 GM/100 ML BAG IVPB SCH (02:00)
[2017-04-14] MEDS: HYDROmorphone HCL CARPU-JECT 2 MG/1 ML DISP.SYRIN IVPUSH PRN ×5 (02:00→22:29)
[2017-04-14] MEDS: PROPOFOL 1,000,000 MCG/100 ML VIAL IVPUSH SCH (02:30)
[2017-04-14] MEDS ORDERED: LACTATED RINGERS SOLUTION 1,000 ML/1,000 ML INFUS.BAG IV STA (04:36)
[2017-04-14] MEDS: PIPERACILLIN/TAZOB 4.5 GM 4.5 GM/100 ML BAG IVPB SCH ×3 (06:06→22:41)
[2017-04-14 06:39] LABS: BASO % 0.2 % (0-2.0); EOS % 0.1 % (0-4.5); HEMATOCRIT 41.1 % (35.4-49); HEMOGLOBIN 13.8 GM/dL (11.7-16.9); MCH 27.6 pg (25.7-33.7); MCHC 33.6 g/dl (32.0-35.9); MEAN CELL VOLUME 82.1 fl (80-96); MEAN PLT VOLUME 7.9 fl (7.5-11.1); MONO % 8.5 % (3.8-10.2); NEUT % 83.2 % (42.8-82.8); PLATELET COUNT 290 K/MM3 (134-434); RDW 13.6 % (11.9-15.9); WHITE BLOOD COUNT 13.4 K/mm3 (4.0-10.0)
[2017-04-14 07:00] LABS: ANION GAP 9 (8-16); BLOOD UREA NITROGEN 10 mg/dL (7-18); CALCIUM 7.4 mg/dL (8.5-10.1); CHLORIDE 106 mmol/L (98-107); CO2 25 mmol/L (21-32); CREATININE 0.8 mg/dL (0.7-1.3); GLUCOSE,RANDOM 124 mg/dL (74-106); MAGNESIUM 1.4 mg/dL (1.8-2.4); POTASSIUM 4.5 mmol/L (3.5-5.1); SODIUM 140 mmol/L (136-145)
[2017-04-14] MEDS ORDERED: SODIUM CHLORIDE 1,000 ML IV STA ×2 (09:29→13:08)
[2017-04-14] MEDS ORDERED: PT OWN MED DRAWER 7, Y5N ONE ×2 (09:44→21:44)
[2017-04-14] MEDS ORDERED: FAMOTIDINE 20 MG/50 ML IVPB 20 MG/50 ML MG IVPB SCH (10:00)
[2017-04-14] MEDS: MAGNESIUM SULF 50% (8.12 MEQ/2 ML-1 GM VIAL) IVPB SCH ×2 (10:02→14:26)
[2017-04-14] MEDS: MUPIROCIN 2% TOPICAL OINTMENT FOR DECOLONIZATION NS SCH ×2 (10:03→22:40)
[2017-04-14] MEDS: SODIUM CHLORIDE 1,000 ML IV SCH (10:04)
[2017-04-14] MEDS: FAMOTIDINE IV 20 MG/12 ML VIAL IVPUSH SCH ×2 (10:10→22:39)
--- NOTE | 2017-04-14 10:52 | PN ---
Progress Note (short form) - Note Progress Note: Anesthesia post op note POD#1. S/P sigmoidectomy with colostomy (Gerri's procedure) under GA. VSS. Intubated, sedated. Consider extubation today. No apparent post anesthesia complications. Signed off.
--- NOTE | 2017-04-14 10:56 | PN ---
Progress Note (short form) - Note Progress Note: PULMONARY/CCM Pt seen and examined in the ICU. s/p ex-lap found to have sigmoid perforation with gross contamination s/p resection/end colostomy. Remained intubated, awake off sedation, following commands. Tolerated CPAP/PS and subsequently extubated. Last Vital Signs Temp Pulse Resp BP Pulse Ox 99.2 F 117 H 20 122/64 97 04/14/17 10:00 04/14/17 10:00 04/14/17 10:00 04/14/17 10:00 04/14/17 09:55 Intake & Output 04/11/17 04/12/17 04/13/17 04/14/17 23:59 23:59 23:59 23:59 Intake Total 1500 2275 8450 5940 Output Total 1050 4080 365 Balance 1500 1225 4370 5575 Weight 94.546 kg Gen: intubated, awake Heart: tachycardic, regular Lung: decreased breath sounds at the bases Abd: soft, +ostomy pink Ext: no edema CBC, BMP 04/14/17 05:15 04/14/17 05:15 Active Medications Chlorhexidine Gluconate (Hibiclens For Decolonization -) 1 applic TP HS NATALIE Hydromorphone HCl (Dilaudid Injection -) 1 mg IVPUSH Q4H PRN PRN Reason: PAIN Last Admin: 04/14/17 10:03 Dose: 1 mg Propofol (Diprivan -) 1,000,000 mcg in 100 mls @ 5.715 mls/hr IVPUSH TITR NATALIE; 10 MCG/KG/MIN PRN Reason: Protocol Last Admin: 04/14/17 02:30 Dose: 34.99 mcg/kg/min, 19.998 mls/hr Famotidine (Pepcid 20 Mg/12 Ml Push) 20 mg in 12 mls @ 144 mls/hr IVPUSH BID NATALIE Last Admin: 04/14/17 10:10 Dose: 144 mls/hr Piperacillin/Tazobactam/Dextrose (Zosyn 4.5gm Ivpb (Premix)) 4.5 gm in 100 mls @ 200 mls/hr IVPB TID NATALIE PRN Reason: Protocol Last Admin: 04/14/17 06:06 Dose: 200 mls/hr Sodium Chloride (Normal Saline -) 1,000 mls @ 200 mls/hr IV ASDIR [facility] Last Admin: 04/14/17 10:04 Dose: 200 mls/hr Magnesium Sulfate (Magnesium Sulfate) 2 gm IVPB Q4H [facility] Stop: 04/14/17 13:31 Last Admin: 04/14/17 10:02 Dose: 2 gm Mupirocin (Bactroban Ointment (For Decolonization) -) 1 applic NS BID [facility] Stop: 04/19/17 09:59 Last Admin: 04/14/17 10:03 Dose: 1 applic A/P Perforated Sigmoid Colon Peritonitis Sepsis s/ p ex-lap/sigmoid colectomy/colostomy - continue antibiotics - f/u OR cultures - pt extubated - pain control - incentive spirometry - IVF - await return of bowel function - DVT prophylaxis - continue ICU monitoring critical care time spent reviewing chart, evaluating patient and formulating plan 35 min
--- NOTE | 2017-04-14 12:12 | PN ---
Progress Note, Physician History of Present Illness: Events noted. Pt seen and examined. Admitted with abd pain/vomiting, tachycardia and fever. Now s/p sigmoidectomy/Hartmans pouch for perforated diverticulum. Pain is controlled. Denies any specific complaints. Mild temp elevation. - Current Medication List Current Medications: Active Medications Chlorhexidine Gluconate (Hibiclens For Decolonization -) 1 applic TP HS NATALIE Hydromorphone HCl (Dilaudid Injection -) 1 mg IVPUSH Q4H PRN PRN Reason: PAIN Last Admin: 04/14/17 10:03 Dose: 1 mg Propofol (Diprivan -) 1,000,000 mcg in 100 mls @ 5.715 mls/hr IVPUSH TITR NATALIE; 10 MCG/KG/MIN PRN Reason: Protocol Last Admin: 04/14/17 02:30 Dose: 34.99 mcg/kg/min, 19.998 mls/hr Famotidine (Pepcid 20 Mg/12 Ml Push) 20 mg in 12 mls @ 144 mls/hr IVPUSH BID [facility] Last Admin: 04/14/17 10:10 Dose: 144 mls/hr Piperacillin/Tazobactam/Dextrose (Zosyn 4.5gm Ivpb (Premix)) 4.5 gm in 100 mls @ 200 mls/hr IVPB TID NATALIE PRN Reason: Protocol Last Admin: 04/14/17 06:06 Dose: 200 mls/hr Sodium Chloride (Normal Saline -) 1,000 mls @ 200 mls/hr IV ASDIR [facility] Last Admin: 04/14/17 10:04 Dose: 200 mls/hr Magnesium Sulfate (Magnesium Sulfate) 2 gm IVPB Q4H [facility] Stop: 04/14/17 13:31 Last Admin: 04/14/17 10:02 Dose: 2 gm Mupirocin (Bactroban Ointment (For Decolonization) -) 1 applic NS BID [facility] Stop: 04/19/17 09:59 Last Admin: 04/14/17 10:03 Dose: 1 applic - Objective Vital Signs: Vital Signs Temperature 99.2 F 04/14/17 10:00 Pulse Rate 117 H 04/14/17 10:00 Respiratory Rate 20 04/14/17 10:00 Blood Pressure 122/64 04/14/17 10:00 O2 Sat by Pulse Oximetry (%) 97 04/14/17 09:55 Constitutional: Yes: No Distress, Calm Neck: Yes: Supple Cardiovascular: Yes: Tachycardia Respiratory: Yes: CTA Bilaterally Gastrointestinal: Yes: Soft, Hyperactive Bowel Sounds, Other Genitourinary: Yes: WNL Extremities: Yes: WNL Wound/Incision: Yes: Dressing Dry and Intact Neurological: Yes: Alert Labs: CBC, BMP 04/14/17 05:15 04/14/17 05:15 INR, PTT INR 1.35 (0.82-1.09) H 04/11/17 07:30 Microbiology 04/09/17 13:15 Blood - Peripheral Venous Blood Culture - Preliminary NO GROWTH OBTAINED AFTER 96 HOURS, INCUBATION TO CONTINUE FOR 1 DAYS. 04/09/17 13:15 Blood - Peripheral Venous Blood Culture - Preliminary NO GROWTH OBTAINED AFTER 96 HOURS, INCUBATION TO CONTINUE FOR 1 DAYS. 04/09/17 10:40 Urine - Urine Clean Catch Urine Culture - Final NO GROWTH OBTAINED Problem List - Problems (1) Diverticulitis of intestine with perforation Code(s): K57.80 - DVTRCLI OF INTEST, PART UNSP, W PERF AND ABSCESS W/O BLEED Qualifiers: Diverticulitis site: unspecified part of intestinal tract Diverticulitis bleeding: without bleeding Qualified Code(s): K57.80 - Diverticulitis of intestine, part unspecified, with perforation and abscess without bleeding (2) Leukocytosis Code(s): D72.829 - ELEVATED WHITE BLOOD CELL COUNT, UNSPECIFIED Qualifiers: Leukocytosis type: bandemia Qualified Code(s): D72.825 - Bandemia Assessment/Plan s/p Sigmoidectomy/Hartmans procedure - continue Zosyn IV - monitor wbc, vitals - d/w Dr. Avalos will f/u CC time: 40 min
--- NOTE | 2017-04-14 12:26 | PN ---
Progress Note, Physician Chief Complaint: lower abdominal pain History of Present Illness: Yesterday, pt had sudden abdominal pain in the morning, which persisted, later associated with low grade temps and tachycardia. CT showed gross and increased pneumoperitoneum. He was transferred from [facility] to [facility] for OR and underwent Gerri's procedure for perforated sigmoid diverticulitis. Findings included a moderate-sized hole in the sigmoid colon with localized fibrinous peritonitis and gross fecal spillage in the pelvis during the operation. He was left intubated overnight and was extubated in the ICU this morning. His pain is controlled with prn IV narcotics. Antibiotics have continued. Overnight, he has been further fluid resuscitated and urine is starting to lighten but is still yellow/vivian. He feels warm now, but is having minimal pain. - Current Medication List Current Medications: Active Medications Chlorhexidine Gluconate (Hibiclens For Decolonization -) 1 applic TP HS NATALIE Hydromorphone HCl (Dilaudid Injection -) 1 mg IVPUSH Q4H PRN PRN Reason: PAIN Last Admin: 04/14/17 10:03 Dose: 1 mg Propofol (Diprivan -) 1,000,000 mcg in 100 mls @ 5.715 mls/hr IVPUSH TITR NATALIE; 10 MCG/KG/MIN PRN Reason: Protocol Last Admin: 04/14/17 02:30 Dose: 34.99 mcg/kg/min, 19.998 mls/hr Famotidine (Pepcid 20 Mg/12 Ml Push) 20 mg in 12 mls @ 144 mls/hr IVPUSH BID [facility] Last Admin: 04/14/17 10:10 Dose: 144 mls/hr Piperacillin/Tazobactam/Dextrose (Zosyn 4.5gm Ivpb (Premix)) 4.5 gm in 100 mls @ 200 mls/hr IVPB TID NATALIE PRN Reason: Protocol Last Admin: 04/14/17 06:06 Dose: 200 mls/hr Sodium Chloride (Normal Saline -) 1,000 mls @ 200 mls/hr IV ASDIR [facility] Last Admin: 04/14/17 10:04 Dose: 200 mls/hr Magnesium Sulfate (Magnesium Sulfate) 2 gm IVPB Q4H [facility] Stop: 04/14/17 13:31 Last Admin: 04/14/17 10:02 Dose: 2 gm Mupirocin (Bactroban Ointment (For Decolonization) -) 1 applic NS BID [facility] Stop: 04/19/17 09:59 Last Admin: 04/14/17 10:03 Dose: 1 applic - Objective Vital Signs: Vital Signs Temperature 99.2 F 04/14/17 10:00 Pulse Rate 117 H 04/14/17 10:00 Respiratory Rate 20 04/14/17 10:00 Blood Pressure 122/64 04/14/17 10:00 O2 Sat by Pulse Oximetry (%) 97 04/14/17 09:55 Constitutional: Yes: Well Nourished, No Distress, Calm, Diaphoresis Eyes: Yes: Conjunctiva Clear, EOM Intact HENT: Yes: Atraumatic, Normocephalic Neck: Yes: Supple, Trachea Midline Cardiovascular: Yes: Tachycardia. No: Pulse Irregular, Murmur Respiratory: Yes: Regular, CTA Bilaterally, On Venti-Mask. No: Intubated Gastrointestinal: Yes: Soft, Distention, Hypoactive Bowel Sounds, Tenderness ( BLQ and suprapubic, no R/G), Other (colostomy dark pink/edematous, with small amt serosang/bowel sweat in bag) Genitourinary: Yes: Hatch Present (vivian urine). No: Hematuria, Oliguria Musculoskeletal: No: Joint Stiffness, Joint Swelling Extremities: No: Cool, Cyanosis Edema: No (minimal in limbs yet) Integumentary: Yes: Other (sweating). No: Jaundice, Rash Wound/Incision: Yes: [place] Intact (at umbilicus), Dressing Dry and Intact, Unapproximated (above and below umbilicus), Other (wounds packed with iodoform at OR, covered w/gauze and ABD - will change tomorrow am). No: Dressing Removed Neurological: Yes: Alert, Oriented Psychiatric: Yes: Alert, Oriented Labs: CBC, BMP 04/14/17 05:15 04/14/17 05:15 Microbiology 04/09/17 13:15 Blood Culture - Preliminary Blood - Peripheral Venous NO GROWTH OBTAINED AFTER 96 HOURS, INCUBATION TO CONTINUE FOR 1 DAYS. 04/09/17 13:15 Blood Culture - Preliminary Blood - Peripheral Venous NO GROWTH OBTAINED AFTER 96 HOURS, INCUBATION TO CONTINUE FOR 1 DAYS. CMP Sodium 140 mmol/L (136-145) 04/14/17 05:15 Potassium 4.5 mmol/L (3.5-5.1) 04/14/17 05:15 Chloride 106 mmol/L (98-107) 04/14/17 05:15 Carbon Dioxide 25 mmol/L (21-32) 04/14/17 05:15 Anion Gap 9 (8-16) 04/14/17 05:15 BUN 10 mg/dL (7-18) 04/14/17 05:15 Creatinine 0.8 mg/dL (0.7-1.3) 04/14/17 05:15 Creat Clearance w eGFR > 60 (>60) 04/11/17 07:30 Random Glucose 124 mg/dL (74-106) H 04/14/17 05:15 Lactic Acid 1.1 mmol/L (0.4-2.0) 04/09/17 13:15 Calcium 7.4 mg/dL (8.5-10.1) L 04/14/17 05:15 Magnesium 1.4 mg/dL (1.8-2.4) L D 04/14/17 05:15 Total Bilirubin 1.1 mg/dl (0.2-1.0) H D 04/11/17 07:30 AST 20 U/L (10-42) 04/11/17 07:30 ALT 18 U/L (10-40) 04/11/17 07:30 Alkaline Phosphatase 71 U/L (32-92) D 04/11/17 07:30 Total Protein 5.7 g/dl (6.4-8.3) L 04/11/17 07:30 Albumin 2.9 g/dl (3.5-5.0) L 04/11/17 07:30 Mg low - being repleted fluids changed from LR to NS this am - ....Imaging Chest X-ray: Report Reviewed Problem List - Problems (1) Diverticulitis of large intestine with perforation without abscess or bleeding Assessment/Plan: POD1 s/p Gerri's procedure for perforated sigmoid diverticulitis extubated this am to mask O2 NG sumped and suctioning well with clear brownish output, ~1-200 after sumping Hatch with vivian urine - volume good, but concentrated tachycardic with low grade temps feeling ok - pain controlled with prn meds NPO/IVF/NGT - aggressive rehydration for third spacing/SIRS/peritonitis/sepsis will change midline dressings tomorrow am IV pain meds prn continue Zosyn, ID on board colostomy edematous but viable, await function continue Hatch for accurate I/O's continue IV fluid resuscitation overall doing as expected OOB to chair later today GI/DVT prophylaxis ok for transfer to 8th floor Code(s): K57.20 - DVTRCLI OF LG INT W PERFORATION AND ABSCESS W/O BLEEDING (2) Fibrinous peritonitis Assessment/Plan: follow up culture of peritoneal fluid Code(s): K65.8 - OTHER PERITONITIS (3) Sepsis Assessment/Plan: related to localized peritonitis cultures pending on antibiotics see above Code(s): A41.9 - SEPSIS, UNSPECIFIED ORGANISM Qualifiers: Sepsis type: sepsis due to unspecified organism Qualified Code(s): A41.9 - Sepsis, unspecified organism (4) Dehydration Assessment/Plan: third spacing - still fluid responsive aggressive IV fluids until urine lightens and tachycardia improves anticipate reversal of third spacing in next 48 hours or so Code(s): E86.0 - DEHYDRATION (5) Sinus tachycardia Assessment/Plan: likely multifactorial - fluid status, temps, SIRS/sepsis monitor for improvement Code(s): R00.0 - TACHYCARDIA, UNSPECIFIED (6) Leukocytosis Assessment/Plan: wbc up a bit postop as expected anticipate resolution over next few days Code(s): D72.829 - ELEVATED WHITE BLOOD CELL COUNT, UNSPECIFIED Qualifiers: Leukocytosis type: bandemia Qualified Code(s): D72.825 - Bandemia Assessment/Plan This patient is critically ill. Time spent reviewing chart, examining patient, talking with providers and/or family and documentation is 45 minutes
[2017-04-14] MEDS ORDERED: CHLORHEXIDINE GLUCONATE 4% CLEANSER FOR DECOLONIZATION TP SCH (22:00)
[2017-04-15] MEDS: HYDROmorphone HCL CARPU-JECT 2 MG/1 ML DISP.SYRIN IVPUSH PRN ×4 (02:27→17:50)
[2017-04-15] MEDS: PROPOFOL 1,000,000 MCG/100 ML VIAL IVPUSH SCH (02:29)
[2017-04-15 06:33] LABS: BASO % 0.1 % (0-2.0); EOS % 0.7 % (0-4.5); HEMATOCRIT 33.5 % (35.4-49); HEMOGLOBIN 11.2 GM/dL (11.7-16.9); LYMPH % 8.4 % (8-40); MCH 27.7 pg (25.7-33.7); MCHC 33.4 g/dl (32.0-35.9); MEAN CELL VOLUME 82.8 fl (80-96); MEAN PLT VOLUME 7.8 fl (7.5-11.1); MONO % 8.1 % (3.8-10.2); NEUT % 82.7 % (42.8-82.8); PLATELET COUNT 276 K/MM3 (134-434); RBC 4.04 M/mm3 (4.00-5.60); RDW 13.4 % (11.9-15.9)
[2017-04-15 06:53] LABS: ALBUMIN 1.6 g/dl (3.4-5.0); ANION GAP 10 (8-16); BILIRUBIN,TOTAL 2.4 mg/dL (0.2-1.0); BLOOD UREA NITROGEN 11 mg/dL (7-18); CALCIUM 7.3 mg/dL (8.5-10.1); CHLORIDE 106 mmol/L (98-107); CO2 26 mmol/L (21-32); CREATININE 0.7 mg/dL (0.7-1.3); GLUCOSE,RANDOM 88 mg/dL (74-106); MAGNESIUM 2.4 mg/dL (1.8-2.4); PHOSPHOROUS 1.8 mg/dL (2.5-4.9); POTASSIUM 4.4 mmol/L (3.5-5.1); SGOT/AST 29 U/L (15-37); SGPT/ALT 26 U/L (12-78); SODIUM 142 mmol/L (136-145); TOT PROT 4.4 g/dl (6.4-8.2)
[2017-04-15 06:54] LABS: ALK PHOS 47 U/L (45-117)
[2017-04-15] MEDS ORDERED: PT OWN MED DRAWER 7, Y5N ONE ×2 (07:31→17:00)
[2017-04-15] MEDS: PIPERACILLIN/TAZOB 4.5 GM 4.5 GM/100 ML BAG IVPB SCH ×4 (07:44→22:55)
[2017-04-15] MEDS: SODIUM CHLORIDE 1,000 ML IV SCH ×3 (07:44→18:35)
[2017-04-15] MEDS: FAMOTIDINE IV 20 MG/12 ML VIAL IVPUSH SCH ×3 (10:31→22:55)
[2017-04-15] MEDS: MUPIROCIN 2% TOPICAL OINTMENT FOR DECOLONIZATION NS SCH (10:31)
--- NOTE | 2017-04-15 11:52 | PN ---
Progress Note (short form) - Note Progress Note: PULMONARY/CCM Pt seen and examined in the ICU. States pain controlled with current regimen. No nausea or vomiting. No fevers or chills. Last Vital Signs Temp Pulse Resp BP Pulse Ox 98.3 F 113 H 17 118/81 97 04/15/17 10:00 04/15/17 10:00 04/15/17 10:00 04/15/17 10:00 04/15/17 08:00 Intake & Output 04/12/17 04/13/17 04/14/17 04/15/17 23:59 23:59 23:59 23:59 Intake Total 2275 8450 29812 1400 Output Total 1050 4080 1565 520 Balance 1225 4370 9625 880 Weight 94.546 kg 99.053 kg Gen: NAD at rest Heart: tachycardic, regular Lung: decreased breath sounds at the bases Abd: soft, +ostomy pink Ext: no edema CBC, BMP 04/15/17 05:00 04/15/17 05:00 Active Medications Chlorhexidine Gluconate (Hibiclens For Decolonization -) 1 applic TP HS NATALIE Last Admin: 04/14/17 22:40 Dose: 1 applic Hydromorphone HCl (Dilaudid Injection -) 1 mg IVPUSH Q4H PRN PRN Reason: PAIN Last Admin: 04/15/17 07:40 Dose: 1 mg Propofol (Diprivan -) 1,000,000 mcg in 100 mls @ 5.715 mls/hr IVPUSH TITR NATALIE; 10 MCG/KG/MIN PRN Reason: Protocol Last Admin: 04/15/17 02:29 Dose: Not Given Famotidine (Pepcid 20 Mg/12 Ml Push) 20 mg in 12 mls @ 144 mls/hr IVPUSH BID [facility] Last Admin: 04/15/17 10:31 Dose: 144 mls/hr Piperacillin/Tazobactam/Dextrose (Zosyn 4.5gm Ivpb (Premix)) 4.5 gm in 100 mls @ 200 mls/hr IVPB TID NATALIE PRN Reason: Protocol Last Admin: 04/15/17 07:44 Dose: 200 mls/hr Sodium Chloride (Normal Saline -) 1,000 mls @ 200 mls/hr IV ASDIR [facility] Last Admin: 04/15/17 09:30 Dose: Not Given Mupirocin (Bactroban Ointment (For Decolonization) -) 1 applic NS BID [facility] Stop: 04/19/17 09:59 Last Admin: 04/15/17 10:31 Dose: 1 applic A/P Perforated Sigmoid Colon Peritonitis Sepsis s/ p ex-lap/sigmoid colectomy/colostomy Anemia likely dilutional - continue antibiotics - f/u OR cultures - pain control - incentive spirometry - IVF - monitor urine output - await return of bowel function - DVT prophylaxis - can monitor on surgical floor
--- NOTE | 2017-04-15 14:02 | PN ---
Progress Note, Physician History of Present Illness: No overnight events. Pt feeling ok. Pain controlled with prn meds. Was OOB to chair yesterday. Hatch with yellow urine, 500ml overnight, 750ml in bag now since am. NG with 300ml yesterday, 20 recorded overnight, minimal output in canister, clear/greenish. No flatus yet per ostomy. No fevers, tachy in 110s. Denies much pain now. Using IS. - Current Medication List Current Medications: Active Medications Chlorhexidine Gluconate (Hibiclens For Decolonization -) 1 applic TP HS [facility] Last Admin: 04/14/17 22:40 Dose: 1 applic Hydromorphone HCl (Dilaudid Injection -) 1 mg IVPUSH Q4H PRN PRN Reason: PAIN Last Admin: 04/15/17 12:20 Dose: 1 mg Famotidine (Pepcid 20 Mg/12 Ml Push) 20 mg in 12 mls @ 144 mls/hr IVPUSH BID [facility] Last Admin: 04/15/17 10:31 Dose: 144 mls/hr Piperacillin/Tazobactam/Dextrose (Zosyn 4.5gm Ivpb (Premix)) 4.5 gm in 100 mls @ 200 mls/hr IVPB TID [facility] PRN Reason: Protocol Last Admin: 04/15/17 07:44 Dose: 200 mls/hr Sodium Chloride (Normal Saline -) 1,000 mls @ 200 mls/hr IV ASDIR [facility] Last Admin: 04/15/17 09:30 Dose: Not Given Sodium Phosphate 15 mm/ (Dextrose) 255 mls @ 62.5 mls/hr IVPB ONCE ONE Stop: 04/15/17 17:54 Mupirocin (Bactroban Ointment (For Decolonization) -) 1 applic NS BID [facility] Stop: 04/19/17 09:59 Last Admin: 04/15/17 10:31 Dose: 1 applic - Objective Vital Signs: Vital Signs Temperature 98.4 F 04/15/17 12:00 Pulse Rate 111 H 04/15/17 12:00 Respiratory Rate 17 04/15/17 12:00 Blood Pressure 126/81 04/15/17 12:00 O2 Sat by Pulse Oximetry (%) 97 04/15/17 08:00 Constitutional: Yes: Well Nourished, No Distress, Calm Eyes: Yes: Conjunctiva Clear, EOM Intact. No: Sclera Icterus HENT: Yes: Atraumatic, Normocephalic, Other (NG in place) Cardiovascular: Yes: Tachycardia. No: Pulse Irregular Respiratory: Yes: Regular, CTA Bilaterally. No: Wheezes Gastrointestinal: Yes: Soft, Distention (mild - mod), Hypoactive Bowel Sounds ( present but less than normal), Tenderness (mild suprapubic and LLQ low, incisional - no R/G), Other (colostomy pink, edematous, patent through fascia, small amt fluid/bowel sweat in bag, no gas; appliance intact) Genitourinary: Yes: Hatch Present. No: Hematuria Musculoskeletal: No: Joint Stiffness, Joint Swelling Extremities: No: Cool, Cyanosis Edema: Yes Edema: LUE: Trace (dependent) Integumentary: Yes: Incision (midline). No: Jaundice, Rash Wound/Incision: Yes: [place] Intact (at umbilicus), Dressing Dry and Intact, Dressing Removed (and packing changed above and below umbilicus with saline- dampened Kerlix; wounds clean, yellow/pink, dried serosang drainage on dressings , no bleeding, fascia intact), Unapproximated Neurological: Yes: Alert, Oriented Psychiatric: Yes: Alert, Oriented Labs: CBC, BMP 04/15/17 05:00 04/15/17 05:00 CMP Sodium 142 mmol/L (136-145) 04/15/17 05:00 Potassium 4.4 mmol/L (3.5-5.1) 04/15/17 05:00 Chloride 106 mmol/L (98-107) 04/15/17 05:00 Carbon Dioxide 26 mmol/L (21-32) 04/15/17 05:00 Anion Gap 10 (8-16) 04/15/17 05:00 BUN 11 mg/dL (7-18) 04/15/17 05:00 Creatinine 0.7 mg/dL (0.7-1.3) 04/15/17 05:00 Creat Clearance w eGFR > 60 (>60) 04/15/17 05:00 Random Glucose 88 mg/dL (74-106) D 04/15/17 05:00 Calcium 7.3 mg/dL (8.5-10.1) L 04/15/17 05:00 Phosphorus 1.8 mg/dL (2.5-4.9) L 04/15/17 05:00 Magnesium 2.4 mg/dL (1.8-2.4) D 04/15/17 05:00 Total Bilirubin 2.4 mg/dL (0.2-1.0) H 04/15/17 05:00 AST 29 U/L (15-37) 04/15/17 05:00 ALT 26 U/L (12-78) 04/15/17 05:00 Alkaline Phosphatase 47 U/L (45-117) 04/15/17 05:00 Total Protein 4.4 g/dl (6.4-8.2) L 04/15/17 05:00 Albumin 1.6 g/dl (3.4-5.0) L 04/15/17 05:00 Mg normal, Phos low, K normal Problem List - Problems (1) Diverticulitis of large intestine with perforation without abscess or bleeding Assessment/Plan: POD2 s/p Gerri's procedure for perforated sigmoid diverticulitis NG with clear/greenish output, minimal Hatch with yellow urine - volume good still somewhat tachycardic feeling ok - pain controlled with prn meds continue NPO/IVF/NGT - anticipate reversal of third spacing over next day or two midline dressing changed - will continue daily IV pain meds prn continue Zosyn, ID on board colostomy edematous but viable, await function continue Hatch for accurate I/O's for today overall doing as expected OOB to chair and ok to ambulate as able GI/DVT prophylaxis ok for transfer to 8th floor Code(s): K57.20 - DVTRCLI OF LG INT W PERFORATION AND ABSCESS W/O BLEEDING (2) Fibrinous peritonitis Assessment/Plan: follow up culture of peritoneal fluid Code(s): K65.8 - OTHER PERITONITIS (3) Sepsis Assessment/Plan: related to localized peritonitis cultures pending on antibiotics see above Code(s): A41.9 - SEPSIS, UNSPECIFIED ORGANISM Qualifiers: Sepsis type: sepsis due to unspecified organism Qualified Code(s): A41.9 - Sepsis, unspecified organism (4) Dehydration Assessment/Plan: third spacing - making good urine but still a bit tachy continue IV fluids anticipate reversal of third spacing in next day or so Code(s): E86.0 - DEHYDRATION (5) Sinus tachycardia Assessment/Plan: slightly improved but still present Code(s): R00.0 - TACHYCARDIA, UNSPECIFIED (6) Leukocytosis Assessment/Plan: wbc up a bit postop as expected anticipate resolution over next few days Code(s): D72.829 - ELEVATED WHITE BLOOD CELL COUNT, UNSPECIFIED Qualifiers: Leukocytosis type: bandemia Qualified Code(s): D72.825 - Bandemia
[2017-04-15] MEDS ORDERED: SODIUM PHOSPHATE - 15 MM in DEXTROSE 5%-WATER - 250 ML IVPB ONE ×2 (15:00→15:30)
--- NOTE | 2017-04-15 15:59 | PN ---
Progress Note, Physician History of Present Illness: Pt states he feels well. Pain is well controlled. No specific complaints. - Current Medication List Current Medications: Active Medications Hydromorphone HCl (Dilaudid Injection -) 1 mg IVPUSH Q4H PRN PRN Reason: PAIN Sodium Phosphate 15 mm/ (Dextrose) 255 mls @ 63.75 mls/hr IVPB ONCE ONE PRN Reason: 15 MM/4 HR Stop: 04/15/17 18:59 Famotidine (Pepcid 20 Mg/12 Ml Push) 20 mg in 12 mls @ 144 mls/hr IVPUSH BID [facility] Sodium Chloride (Normal Saline -) 1,000 mls @ 200 mls/hr IV ASDIR [facility] Piperacillin Sod/Tazobactam (Sod 4.5 gm/ Dextrose) 100 mls @ 200 mls/hr IVPB TID [facility]ALIE - Objective Vital Signs: Vital Signs Temperature 98.1 F 04/15/17 14:00 Pulse Rate 112 H 04/15/17 14:00 Respiratory Rate 20 04/15/17 14:00 Blood Pressure 133/79 04/15/17 14:00 O2 Sat by Pulse Oximetry (%) 97 04/15/17 08:00 Constitutional: Yes: No Distress, Calm Cardiovascular: Yes: Tachycardia Respiratory: Yes: CTA Bilaterally Gastrointestinal: Yes: Hypoactive Bowel Sounds, Other (ostomy) Genitourinary: Yes: WNL Extremities: Yes: WNL Wound/Incision: Yes: Dressing Dry and Intact Neurological: Yes: Alert, Oriented Labs: CBC, BMP 04/15/17 05:00 04/15/17 05:00 INR, PTT INR 1.35 (0.82-1.09) H 04/11/17 07:30 Problem List - Problems (1) Diverticulitis of intestine with perforation Code(s): K57.80 - DVTRCLI OF INTEST, PART UNSP, W PERF AND ABSCESS W/O BLEED Qualifiers: Diverticulitis site: unspecified part of intestinal tract Diverticulitis bleeding: without bleeding Qualified Code(s): K57.80 - Diverticulitis of intestine, part unspecified, with perforation and abscess without bleeding (2) Leukocytosis Code(s): D72.829 - ELEVATED WHITE BLOOD CELL COUNT, UNSPECIFIED Qualifiers: Leukocytosis type: bandemia Qualified Code(s): D72.825 - Bandemia Assessment/Plan Pt admitted with abdominal pain noted to have Perforated Diverticulum now s/p Sigmoidectomy/Hartmanns procedure POD#2, mild leukocytosis, otherwise doing well , transferred out of ICU - continue Zosyn IV - monitor wbc, vitals clinically stable at this time will f/u
[2017-04-15] MEDS: PIPERACILLIN/TAZOB 4.5 GM 4.5 GM in DEXTROSE 5%-WATER - 100 ML IVPB SCH (22:55)
[2017-04-16] MEDS: HYDROmorphone HCL CARPU-JECT 2 MG/1 ML DISP.SYRIN IVPUSH PRN ×4 (03:11→23:04)
[2017-04-16] MEDS: SODIUM CHLORIDE 1,000 ML IV SCH (04:48)
[2017-04-16] MEDS: PIPERACILLIN/TAZOB 4.5 GM 4.5 GM/100 ML BAG IVPB SCH ×3 (04:49→07:33)
[2017-04-16] MEDS: PIPERACILLIN/TAZOB 4.5 GM 4.5 GM in DEXTROSE 5%-WATER - 100 ML IVPB SCH ×3 (07:33→21:16)
[2017-04-16 08:29] LABS: HEMATOCRIT 31.4 % (35.4-49); HEMOGLOBIN 10.1 GM/dL (11.7-16.9); MCH 26.6 pg (25.7-33.7); MEAN CELL VOLUME 82.9 fl (80-96); MEAN PLT VOLUME 7.5 fl (7.5-11.1); PLATELET COUNT 286 K/MM3 (134-434); RBC 3.79 M/mm3 (4.00-5.60); RDW 13.7 % (11.9-15.9); WHITE BLOOD COUNT 17.1 K/mm3 (4.0-10.0)
[2017-04-16 08:30] LABS: CALCIUM 7.5 mg/dL (8.5-10.1); CHLORIDE 106 mmol/L (98-107); POTASSIUM 3.9 mmol/L (3.5-5.1); SODIUM 140 mmol/L (136-145)
[2017-04-16 08:36] LABS: ALBUMIN 1.6 g/dl (3.4-5.0); ALK PHOS 55 U/L (45-117); ANION GAP 12 (8-16); BILIRUBIN,TOTAL 3.5 mg/dL (0.2-1.0); BLOOD UREA NITROGEN 14 mg/dL (7-18); CO2 22 mmol/L (21-32); CREATININE 0.6 mg/dL (0.7-1.3); GLUCOSE,RANDOM 79 mg/dL (74-106); MAGNESIUM 2.3 mg/dL (1.8-2.4); PHOSPHOROUS 2.4 mg/dL (2.5-4.9); SGOT/AST 43 U/L (15-37); SGPT/ALT 26 U/L (12-78); TOT PROT 4.6 g/dl (6.4-8.2)
--- NOTE | 2017-04-16 10:09 | PN ---
Progress Note, Physician History of Present Illness: post op ng tube bothering him pain better colostomy with liquids - Current Medication List Current Medications: Active Medications Hydromorphone HCl (Dilaudid Injection -) 1 mg IVPUSH Q4H PRN PRN Reason: PAIN Last Admin: 04/16/17 09:18 Dose: 1 mg Famotidine (Pepcid 20 Mg/12 Ml Push) 20 mg in 12 mls @ 144 mls/hr IVPUSH BID [facility] Last Admin: 04/15/17 22:55 Dose: 144 mls/hr Sodium Chloride (Normal Saline -) 1,000 mls @ 200 mls/hr IV ASDIR [facility] Last Admin: 04/16/17 04:48 Dose: 200 mls/hr Piperacillin Sod/Tazobactam (Sod 4.5 gm/ Dextrose) 100 mls @ 200 mls/hr IVPB TID [facility] Last Admin: 04/16/17 07:33 Dose: 200 mls/hr - Objective Vital Signs: Vital Signs Temperature 99.3 F 04/16/17 07:58 Pulse Rate 116 H 04/16/17 07:58 Respiratory Rate 20 04/16/17 07:58 Blood Pressure 143/81 04/16/17 07:58 O2 Sat by Pulse Oximetry (%) 97 04/15/17 21:00 Constitutional: Yes: Calm, Mild Distress Neck: Yes: Supple Cardiovascular: Yes: Regular Rate and Rhythm Respiratory: Yes: Regular, CTA Bilaterally Gastrointestinal: Yes: Soft, Other (absent bowel sounds ng tube in place) Musculoskeletal: Yes: WNL Extremities: Yes: WNL Wound/Incision: Yes: Dressing Dry and Intact Neurological: Yes: Alert, Oriented Psychiatric: Yes: Alert, Oriented Labs: CBC, BMP 04/16/17 07:00 04/16/17 07:00 INR, PTT INR 1.35 (0.82-1.09) H 04/11/17 07:30 Assessment/Plan Problem List - Problems (1) Diverticulitis of large intestine with perforation without abscess or bleeding Code(s): K57.20 - DVTRCLI OF LG INT W PERFORATION AND ABSCESS W/O BLEEDING (2) Abdominal pain, suprapubic Code(s): R10.2 - PELVIC AND PERINEAL PAIN (3) Dehydration Code(s): E86.0 - DEHYDRATION (4) Sinus tachycardia Code(s): R00.0 - TACHYCARDIA, UNSPECIFIED (5) Leukocytosis Code(s): D72.829 - ELEVATED WHITE BLOOD CELL COUNT, UNSPECIFIED Qualifiers: Leukocytosis type: bandemia Qualified Code(s): D72.825 - Bandemia plan continue abx continue as per surgery await for colostomy fning rest as per surgery and primary team
[2017-04-16 10:32] LABS: ACANTHOCYTES 0; ANISOCYTOSIS 0; HELMET CELLS 0; HOWELL-JOLLY BODIES 0; MACROCYTOSIS 0; OVALOCYTE 0; PLATELET ESTIMATE NORMAL; SICKELED CELLS 0; TARGET CELLS 0; TEAR DROP CELLS 0; TOXIC GRANULATION 0
[2017-04-16] MEDS: FAMOTIDINE IV 20 MG/12 ML VIAL IVPUSH SCH ×2 (11:03→21:16)
[2017-04-16] MEDS ORDERED: FLUCONAZOLE 200 MG/NS 100 ML IVPB ONE (12:57)
--- NOTE | 2017-04-16 13:42 | PN ---
Progress Note, Physician Chief Complaint: lower abdominal pain History of Present Illness: No overnight events. Pt feeling better, NG bothering him. Has been OOB to chair. Hatch with vivian, slt orange urine, ~1100 overnight. NG with minimal output in canister, clear, 100 last shift. No flatus yet per ostomy, 100ml fluid only overnight. Denies pain now. Using IS. - Current Medication List Current Medications: Active Medications Hydromorphone HCl (Dilaudid Injection -) 1 mg IVPUSH Q4H PRN PRN Reason: PAIN Last Admin: 04/16/17 09:18 Dose: 1 mg Famotidine (Pepcid 20 Mg/12 Ml Push) 20 mg in 12 mls @ 144 mls/hr IVPUSH BID [facility] Last Admin: 04/16/17 11:03 Dose: 144 mls/hr Sodium Chloride (Normal Saline -) 1,000 mls @ 200 mls/hr IV ASDIR [facility] Last Admin: 04/16/17 04:48 Dose: 200 mls/hr Piperacillin Sod/Tazobactam (Sod 4.5 gm/ Dextrose) 100 mls @ 200 mls/hr IVPB TID [facility] Last Admin: 04/16/17 07:33 Dose: 200 mls/hr Fluconazole (Diflucan 200 Mg/Ns Premixed Ivpb -) 100 mls @ 100 mls/hr IVPB ONCE ONE Stop: 04/16/17 13:56 Fluconazole (Diflucan 100 Mg/D5w Premixed Ivpb -) 50 mls @ 50 mls/hr IVPB DAILY [facility] Potassium Phosphate 15 mm/ (Dextrose) 255 mls @ 62.5 mls/hr IVPB ONCE ONE Stop: 04/16/17 17:03 - Objective Vital Signs: Vital Signs Temperature 99.3 F 04/16/17 07:58 Pulse Rate 116 H 04/16/17 07:58 Respiratory Rate 20 04/16/17 07:58 Blood Pressure 143/81 04/16/17 07:58 O2 Sat by Pulse Oximetry (%) 97 04/15/17 21:00 Vital Signs Period Temp Pulse Resp BP Sys/Kolb Pulse Ox Last 24 Hr 98.1 F-99.5 F 110-129 18-20 125-143/78-81 97 Constitutional: Yes: Well Nourished, No Distress, Calm Eyes: Yes: Conjunctiva Clear, EOM Intact, Sclera Icterus (faint) HENT: Yes: Atraumatic, Normocephalic, Other (NG in place with clear output, minimal) Cardiovascular: Yes: Tachycardia. No: Pulse Irregular Respiratory: Yes: Regular, CTA Bilaterally. No: Wheezes Gastrointestinal: Yes: Soft, Distention (mild), Hypoactive Bowel Sounds, Tenderness (minimal, incisional mainly, no sig RUQ tenderness), Other ( colostomy pink, edematous, serosang fluid in bag but no flatus) Genitourinary: Yes: Hatch Present (vivian/orange-tinged urine). No: Hematuria Extremities: No: Cool, Cyanosis Edema: Yes Edema: LUE: Trace, RUE: Trace, LLE: Trace, RLE: Trace Integumentary: Yes: Incision (midline), Jaundice (mild), Tattoos Wound/Incision: Yes: [place] Intact (at umbilicus), Dressing Dry and Intact, Unapproximated (midline). No: Dressing Removed (will change later today) Neurological: Yes: Alert, Oriented Psychiatric: Yes: Alert, Oriented Labs: CBC, BMP 04/16/17 07:00 04/16/17 07:00 CMP Sodium 140 mmol/L (136-145) 04/16/17 07:00 Potassium 3.9 mmol/L (3.5-5.1) 04/16/17 07:00 Chloride 106 mmol/L (98-107) 04/16/17 07:00 Carbon Dioxide 22 mmol/L (21-32) 04/16/17 07:00 Anion Gap 12 (8-16) 04/16/17 07:00 BUN 14 mg/dL (7-18) D 04/16/17 07:00 Creatinine 0.6 mg/dL (0.7-1.3) L 04/16/17 07:00 Creat Clearance w eGFR > 60 (>60) 04/16/17 07:00 Random Glucose 79 mg/dL (74-106) 04/16/17 07:00 Calcium 7.5 mg/dL (8.5-10.1) L 04/16/17 07:00 Phosphorus 2.4 mg/dL (2.5-4.9) L D 04/16/17 07:00 Magnesium 2.3 mg/dL (1.8-2.4) 04/16/17 07:00 Total Bilirubin 3.5 mg/dL (0.2-1.0) H D 04/16/17 07:00 AST 43 U/L (15-37) H D 04/16/17 07:00 ALT 26 U/L (12-78) 04/16/17 07:00 Alkaline Phosphatase 55 U/L (45-117) 04/16/17 07:00 Total Protein 4.6 g/dl (6.4-8.2) L 04/16/17 07:00 Albumin 1.6 g/dl (3.4-5.0) L 04/16/17 07:00 Problem List - Problems (1) Diverticulitis of large intestine with perforation without abscess or bleeding Assessment/Plan: POD3 s/p Gerri's procedure for perforated sigmoid diverticulitis NG with clear output, minimal Hatch with vivian urine - adequate volume, color likely secondary to elevated bilirubin tachycardic but comfortable feeling ok - pain controlled with minimal meds continue NPO/IVF/NGT - anticipate reversal of third spacing over next day or so change fluids to maintenance midline dressing - daily changes, will do a little later IV pain meds prn continue Zosyn, ID on board add Diflucan, as wbc is still elevated bilirubin still up - if more tomorrow, will get abdominal US no sig RUQ tenderness mild jaundice noticeable colostomy edematous but viable, await function continue Hatch for today until third-space leak seals OOB to chair and ok to ambulate as able GI/DVT prophylaxis Code(s): K57.20 - DVTRCLI OF LG INT W PERFORATION AND ABSCESS W/O BLEEDING (2) Fibrinous peritonitis Assessment/Plan: follow up culture of peritoneal fluid Code(s): K65.8 - OTHER PERITONITIS (3) Sepsis Assessment/Plan: related to peritonitis cultures pending on antibiotics see above Code(s): A41.9 - SEPSIS, UNSPECIFIED ORGANISM Qualifiers: Sepsis type: sepsis due to unspecified organism Qualified Code(s): A41.9 - Sepsis, unspecified organism (4) Dehydration Assessment/Plan: third spacing - making good urine but still a bit tachy continue IV fluids anticipate reversal of third spacing in next day or so Code(s): E86.0 - DEHYDRATION (5) Sinus tachycardia Code(s): R00.0 - TACHYCARDIA, UNSPECIFIED (6) Leukocytosis Assessment/Plan: wbc up a bit more add diflucan per ID continue to trend Code(s): D72.829 - ELEVATED WHITE BLOOD CELL COUNT, UNSPECIFIED Qualifiers: Leukocytosis type: bandemia Qualified Code(s): D72.825 - Bandemia (7) Bilirubinemia Assessment/Plan: will monitor consider US if up again tomorrow biliary stasis vs other etiology? Code(s): E80.6 - OTHER DISORDERS OF BILIRUBIN METABOLISM
[2017-04-16] MEDS ORDERED: POTASSIUM PHOSPHATE 15 MM in DEXTROSE 5%-WATER - 250 ML IVPB ONE (15:00)
[2017-04-16] MEDS ORDERED: PT OWN MED DRAWER 7, Y5N ONE (15:44)
[2017-04-16] MEDS: D5-1/2NS+20 MEQ KCL - 20 MEQ/1,000 ML INFUS.BAG IV SCH (16:46)
[2017-04-17] MEDS: HYDROmorphone HCL CARPU-JECT 2 MG/1 ML DISP.SYRIN IVPUSH PRN ×4 (05:04→21:19)
[2017-04-17] MEDS: PIPERACILLIN/TAZOB 4.5 GM 4.5 GM in DEXTROSE 5%-WATER - 100 ML IVPB SCH ×2 (05:37→16:03)
[2017-04-17 08:16] LABS: HEMATOCRIT 30.1 % (35.4-49); HEMOGLOBIN 9.8 GM/dL (11.7-16.9); MCH 26.7 pg (25.7-33.7); MCHC 32.6 g/dl (32.0-35.9); MEAN CELL VOLUME 81.8 fl (80-96); MEAN PLT VOLUME 7.1 fl (7.5-11.1); PLATELET COUNT 298 K/MM3 (134-434); RBC 3.68 M/mm3 (4.00-5.60); RDW 13.6 % (11.9-15.9); WHITE BLOOD COUNT 15.9 K/mm3 (4.0-10.0)
[2017-04-17 08:42] LABS: ALBUMIN 1.7 g/dl (3.4-5.0); ANION GAP 10 (8-16); BLOOD UREA NITROGEN 14 mg/dL (7-18); CALCIUM 7.5 mg/dL (8.5-10.1); CHLORIDE 106 mmol/L (98-107); CO2 24 mmol/L (21-32); GLUCOSE,RANDOM 95 mg/dL (74-106); MAGNESIUM 2.2 mg/dL (1.8-2.4); POTASSIUM 3.8 mmol/L (3.5-5.1); SODIUM 140 mmol/L (136-145)
[2017-04-17 08:47] LABS: ALK PHOS 57 U/L (45-117); BILIRUBIN,TOTAL 3.3 mg/dL (0.2-1.0); CREATININE 0.7 mg/dL (0.7-1.3); PHOSPHOROUS 2.7 mg/dL (2.5-4.9); SGOT/AST 75 U/L (15-37); SGPT/ALT 43 U/L (12-78)
[2017-04-17] MEDS: SODIUM CHLORIDE 1,000 ML IV SCH (08:48)
[2017-04-17] MEDS: FAMOTIDINE IV 20 MG/12 ML VIAL IVPUSH SCH ×2 (10:30→21:26)
[2017-04-17] MEDS: FLUCONAZOLE 100 MG/NS 50 ML IVPB SCH (10:30)
[2017-04-17 13:11] LABS: ANISOCYTOSIS 2+; PLATELET ESTIMATE NORMAL
--- NOTE | 2017-04-17 13:46 | PN ---
Progress Note, Physician History of Present Illness: feeling ok still no gases bili marginally down wbc marginally down - Current Medication List Current Medications: Active Medications Diphenhydramine HCl (Benadryl Injection -) 25 mg IVPUSH HS PRN PRN Reason: INSOMNIA Last Admin: 04/16/17 23:03 Dose: 25 mg Hydromorphone HCl (Dilaudid Injection -) 1 mg IVPUSH Q4H PRN PRN Reason: PAIN Last Admin: 04/17/17 12:11 Dose: 1 mg Famotidine (Pepcid 20 Mg/12 Ml Push) 20 mg in 12 mls @ 144 mls/hr IVPUSH BID [facility] Last Admin: 04/17/17 10:30 Dose: 144 mls/hr Piperacillin Sod/Tazobactam (Sod 4.5 gm/ Dextrose) 100 mls @ 200 mls/hr IVPB TID [facility] Last Admin: 04/17/17 05:37 Dose: 200 mls/hr Fluconazole (Diflucan 100 Mg/Ns Premixed Ivpb -) 50 mls @ 50 mls/hr IVPB DAILY [facility] Last Admin: 04/17/17 10:30 Dose: 50 mls/hr Potassium Chloride/Dextrose/Sod Cl (D5-1/2ns+20 Meq Kcl -) 20 meq in 1,000 mls @ 125 mls/hr IV ASDIR [facility] Last Admin: 04/16/17 16:46 Dose: 125 mls/hr - Objective Vital Signs: Vital Signs Temperature 99.8 F H 04/17/17 06:08 Pulse Rate 98 H 04/17/17 06:08 Respiratory Rate 18 04/17/17 06:08 Blood Pressure 135/79 04/17/17 06:08 O2 Sat by Pulse Oximetry (%) 98 04/16/17 21:00 Constitutional: Yes: No Distress, Calm Cardiovascular: Yes: Regular Rate and Rhythm Respiratory: Yes: Regular, CTA Bilaterally Gastrointestinal: Yes: Other (absent bowel sounds colostomy in place) Musculoskeletal: Yes: WNL Extremities: Yes: WNL Neurological: Yes: Alert, Oriented Labs: CBC, BMP 04/17/17 06:35 04/17/17 06:35 INR, PTT INR 1.35 (0.82-1.09) H 04/11/17 07:30 Assessment/Plan Problem List - Problems (1) Diverticulitis of large intestine with perforation without abscess or bleeding Code(s): K57.20 - DVTRCLI OF LG INT W PERFORATION AND ABSCESS W/O BLEEDING (2) Abdominal pain, suprapubic Code(s): R10.2 - PELVIC AND PERINEAL PAIN (3) Dehydration Code(s): E86.0 - DEHYDRATION (4) Sinus tachycardia Code(s): R00.0 - TACHYCARDIA, UNSPECIFIED (5) Leukocytosis Code(s): D72.829 - ELEVATED WHITE BLOOD CELL COUNT, UNSPECIFIED Qualifiers: Leukocytosis type: bandemia Qualified Code(s): D72.825 - Bandemia plan continue abx continue as per surgery await for colostomy fning rcontinue to monitor wbc and fning of colostomy
[2017-04-17] MEDS: PIPERACILLIN/TAZOB 3.375 GM 3.375 GM in DEXTROSE 5%-WATER - 100 ML IVPB SCH ×2 (16:51→20:59)
[2017-04-17] MEDS: D5-1/2NS+20 MEQ KCL - 20 MEQ/1,000 ML INFUS.BAG IV SCH (16:52)
--- NOTE | 2017-04-17 17:50 | PN ---
Progress Note, Physician Chief Complaint: lower abdominal pain History of Present Illness: No overnight events. Pt feeling better daily, NG bothering him. Has been OOB to chair and ambulating in halls. Hatch out this am and has voided several times since. NG with clear/green output. No flatus yet per ostomy, but still with serosang fluid in bag. He is starting to feel some cramps and hear rumbling. Pain controlled with prn meds. - Current Medication List Current Medications: Active Medications Diphenhydramine HCl (Benadryl Injection -) 25 mg IVPUSH HS PRN PRN Reason: INSOMNIA Last Admin: 04/16/17 23:03 Dose: 25 mg Hydromorphone HCl (Dilaudid Injection -) 1 mg IVPUSH Q4H PRN PRN Reason: PAIN Last Admin: 04/17/17 17:17 Dose: 1 mg Famotidine (Pepcid 20 Mg/12 Ml Push) 20 mg in 12 mls @ 144 mls/hr IVPUSH BID [facility] Last Admin: 04/17/17 10:30 Dose: 144 mls/hr Fluconazole (Diflucan 100 Mg/Ns Premixed Ivpb -) 50 mls @ 50 mls/hr IVPB DAILY [facility] Last Admin: 04/17/17 10:30 Dose: 50 mls/hr Potassium Chloride/Dextrose/Sod Cl (D5-1/2ns+20 Meq Kcl -) 20 meq in 1,000 mls @ 125 mls/hr IV ASDIR [facility] Last Admin: 04/17/17 16:52 Dose: 125 mls/hr Piperacillin Sod/Tazobactam (Sod 3.375 gm/ Dextrose) 100 mls @ 200 mls/hr IVPB Q6H-IV [facility] Last Admin: 04/17/17 16:51 Dose: 200 mls/hr - Objective Vital Signs: Vital Signs Temperature 97.6 F 04/17/17 16:25 Pulse Rate 99 H 04/17/17 16:25 Respiratory Rate 20 04/17/17 16:25 Blood Pressure 137/83 04/17/17 16:25 O2 Sat by Pulse Oximetry (%) 98 04/16/17 21:00 Constitutional: Yes: Well Nourished, No Distress, Calm Eyes: Yes: Conjunctiva Clear, EOM Intact, Sclera Icterus (faint) HENT: Yes: Atraumatic Cardiovascular: Yes: Regular Rate and Rhythm (mostly), Tachycardia (minimal - improved). No: Pulse Irregular Respiratory: Yes: Regular, CTA Bilaterally Gastrointestinal: Yes: Normal Bowel Sounds (lower abdomen), Soft, Distention ( mild), Hypoactive Bowel Sounds (upper abdomen), Tenderness (minimal diffuse/ incisional), Other (colostomy pink, less edematous, productive of only serosang fluid, no gas yet; patent through fascia to digitalization) Genitourinary: Yes: Other (urine vivian/orange secondary to elevated bilirubin). No: Hatch Present, Hematuria Extremities: No: Cool, Cyanosis Edema: Yes Edema: LUE: Trace, RUE: Trace, LLE: Trace, RLE: Trace Integumentary: Yes: Incision (midline), Jaundice (faint/mild), Tattoos Wound/Incision: Yes: [place] Intact (at umbilicus), Dressing Removed (and packing replaced - mostly serous drainage on dressing; saline-damp Kerlix replaced in wounds, covered with gauze and tape), Unapproximated (midline) Neurological: Yes: Alert, Oriented Psychiatric: Yes: Alert, Oriented Labs: CBC, BMP 04/17/17 06:35 04/17/17 06:35 INR, PTT INR 1.35 (0.82-1.09) H 04/11/17 07:30 Problem List - Problems (1) Diverticulitis of large intestine with perforation without abscess or bleeding Assessment/Plan: POD4 s/p Gerri's procedure for perforated sigmoid diverticulitis NG with clear/green output, somewhat more Hatch out, voiding tachycardia improving feeling ok - pain controlled with minimal meds continue NPO/IVF/NGT encourage OOB/ambulation IS for pulm toilet midline dressing - continue daily changes IV pain meds prn continue Zosyn, Diflucan - ID on board wbc down a little bilirubin down a little, no sig RUQ tenderness mild jaundice noticeable colostomy edematous but viable, await function continue Hatch for today until third-space leak seals GI/DVT prophylaxis Code(s): K57.20 - DVTRCLI OF LG INT W PERFORATION AND ABSCESS W/O BLEEDING (2) Fibrinous peritonitis Assessment/Plan: follow up culture of peritoneal fluid Code(s): K65.8 - OTHER PERITONITIS (3) Sepsis Assessment/Plan: related to peritonitis cultures pending on antibiotics see above Code(s): A41.9 - SEPSIS, UNSPECIFIED ORGANISM Qualifiers: Sepsis type: sepsis due to unspecified organism Qualified Code(s): A41.9 - Sepsis, unspecified organism (4) Dehydration Assessment/Plan: tachycardia improving, stoma edema less euvolemic - may still be third spacing some Code(s): E86.0 - DEHYDRATION (5) Sinus tachycardia Assessment/Plan: improved Code(s): R00.0 - TACHYCARDIA, UNSPECIFIED (6) Leukocytosis Assessment/Plan: wbc down a little continue to trend Code(s): D72.829 - ELEVATED WHITE BLOOD CELL COUNT, UNSPECIFIED Qualifiers: Leukocytosis type: bandemia Qualified Code(s): D72.825 - Bandemia (7) Bilirubinemia Assessment/Plan: likely biliary stasis down a little continue to trend Code(s): E80.6 - OTHER DISORDERS OF BILIRUBIN METABOLISM
[2017-04-17] MEDS ORDERED: PIPERACILLIN/TAZOB 3.375 GM 3.375 GM in DEXTROSE 5%-WATER - 50 ML IVPB SCH (21:00)
[2017-04-18] MEDS: D5-1/2NS+20 MEQ KCL - 20 MEQ/1,000 ML INFUS.BAG IV SCH ×4 (01:06→20:13)
[2017-04-18] MEDS: PIPERACILLIN/TAZOB 3.375 GM 3.375 GM in DEXTROSE 5%-WATER - 100 ML IVPB SCH ×4 (02:51→21:57)
[2017-04-18] MEDS: HYDROmorphone HCL CARPU-JECT 2 MG/1 ML DISP.SYRIN IVPUSH PRN ×2 (04:39→09:15)
[2017-04-18] MEDS ORDERED: PT OWN MED DRAWER 7, Y5N ONE ×2 (09:52→21:08)
[2017-04-18] MEDS: FLUCONAZOLE 100 MG/NS 50 ML IVPB SCH (10:01)
[2017-04-18] MEDS: FAMOTIDINE IV 20 MG/12 ML VIAL IVPUSH SCH ×2 (10:03→22:36)
[2017-04-18] MEDS ORDERED: morphine SULFATE 4 MG/ML VIAL IVPUSH PRN (14:45)
--- NOTE | 2017-04-18 15:14 | PATH ---
Surgical Pathology Report Patient Name: PAM TENORIO [facility]. Rec. #: [id number] /Age/Gender: 1980 (Age: 36) / M Account: [id number] Location: [facility] MED/SURG Taken: 04/13/2017 Received: 04/17/2017 Reported: 04/18/2017 Physicians: Dom Avalos M.D. Specimen(s) Received SIGMOID COLON Clinical History Initially contained perforation-antibiotics times several days, gross perforation today. Diverticulitis of sigmoid colon with perforation Final Diagnosis SIGMOID COLON, COLECTOMY: SIGMOID COLON WITH DIVERTICULOSIS, DIVERTICULITIS AND ASSOCIATED PERFORATION. ACUTE SEROSITIS. SURGICAL MARGINS ARE VIABLE. Electronically Signed Darleen Hanks M.D. Gross Description Received in formalin labeled "sigmoid colon," is a 12 cm in length portion of colon with one stapled mucosal margin and one open mucosal margin. The serosa is cho-stevenson with attached exudate and a focal defect and abundant attached pericolonic adipose tissue. The mucosa is cho with focally flattened folds. Sectioning reveals a perforated diverticulum continuous with the serosal defect. The remainder of the specimen displays multiple uncomplicated diverticula containing fecal material. Laser Technician sections are submitted in 8 cassettes as follows: 1-open mucosal margin; 2-stapled the mucosal margin; 9-2-trkcaziwrql site; 3-9-pdikgjqnqs sales representative graphic art diverticula. 04/17/201704/17/2017
--- NOTE | 2017-04-18 15:41 | PN ---
Progress Note, Physician History of Present Illness: stable small amount of gas noted in the bag ng tube in removed - Current Medication List Current Medications: Active Medications Diphenhydramine HCl (Benadryl Injection -) 25 mg IVPUSH HS PRN PRN Reason: INSOMNIA Last Admin: 04/18/17 00:14 Dose: 25 mg Famotidine (Pepcid 20 Mg/12 Ml Push) 20 mg in 12 mls @ 144 mls/hr IVPUSH BID [facility] Last Admin: 04/18/17 10:03 Dose: 144 mls/hr Fluconazole (Diflucan 100 Mg/Ns Premixed Ivpb -) 50 mls @ 50 mls/hr IVPB DAILY [facility] Last Admin: 04/18/17 10:01 Dose: 50 mls/hr Potassium Chloride/Dextrose/Sod Cl (D5-1/2ns+20 Meq Kcl -) 20 meq in 1,000 mls @ 125 mls/hr IV ASDIR [facility] Last Admin: 04/18/17 09:56 Dose: 125 mls/hr Piperacillin Sod/Tazobactam (Sod 3.375 gm/ Dextrose) 100 mls @ 200 mls/hr IVPB Q6H-IV [facility] Last Admin: 04/18/17 15:06 Dose: 200 mls/hr Morphine Sulfate (Morphine Injection -) 4 mg IVPUSH Q3H PRN PRN Reason: PAIN - Objective Vital Signs: Vital Signs Temperature 97.6 F 04/18/17 08:00 Pulse Rate 93 H 04/18/17 08:00 Respiratory Rate 18 04/18/17 08:00 Blood Pressure 131/82 04/18/17 08:00 O2 Sat by Pulse Oximetry (%) 95 04/17/17 21:00 Constitutional: Yes: No Distress, Calm Cardiovascular: Yes: Regular Rate and Rhythm Respiratory: Yes: Regular, CTA Bilaterally Gastrointestinal: Yes: Distention, Hypoactive Bowel Sounds, Other (colostomy in place) Musculoskeletal: Yes: WNL Extremities: Yes: WNL Wound/Incision: Yes: Dressing Dry and Intact, Other (open part of the wounds lookg goog with good granulation tissue) Labs: CBC, BMP 04/17/17 06:35 04/17/17 06:35 INR, PTT INR 1.35 (0.82-1.09) H 04/11/17 07:30 Assessment/Plan Problem List - Problems (1) Diverticulitis of large intestine with perforation without abscess or bleeding Code(s): K57.20 - DVTRCLI OF LG INT W PERFORATION AND ABSCESS W/O BLEEDING (2) Abdominal pain, suprapubic Code(s): R10.2 - PELVIC AND PERINEAL PAIN (3) Dehydration Code(s): E86.0 - DEHYDRATION (4) Sinus tachycardia Code(s): R00.0 - TACHYCARDIA, UNSPECIFIED (5) Leukocytosis Code(s): D72.829 - ELEVATED WHITE BLOOD CELL COUNT, UNSPECIFIED Qualifiers: Leukocytosis type: bandemia Qualified Code(s): D72.825 - Bandemia wbc trending down plan continue abx monitor wbc await for gi fn to return rest as per surgery
--- NOTE | 2017-04-18 15:55 | PN ---
Progress Note, Physician Chief Complaint: lower abdominal pain History of Present Illness: No overnight events. Pt feeling better daily, has been OOB to chair and ambulating in halls. NG with clear/green output. Some flatus in ostomy bag - had a little this morning and more about an hour ago. Feeling better after. Using IS with good effort. - Current Medication List Current Medications: Active Medications Diphenhydramine HCl (Benadryl Injection -) 25 mg IVPUSH HS PRN PRN Reason: INSOMNIA Last Admin: 04/18/17 00:14 Dose: 25 mg Famotidine (Pepcid 20 Mg/12 Ml Push) 20 mg in 12 mls @ 144 mls/hr IVPUSH BID [facility] Last Admin: 04/18/17 10:03 Dose: 144 mls/hr Fluconazole (Diflucan 100 Mg/Ns Premixed Ivpb -) 50 mls @ 50 mls/hr IVPB DAILY [facility] Last Admin: 04/18/17 10:01 Dose: 50 mls/hr Potassium Chloride/Dextrose/Sod Cl (D5-1/2ns+20 Meq Kcl -) 20 meq in 1,000 mls @ 125 mls/hr IV ASDIR [facility] Last Admin: 04/18/17 09:56 Dose: 125 mls/hr Piperacillin Sod/Tazobactam (Sod 3.375 gm/ Dextrose) 100 mls @ 200 mls/hr IVPB Q6H-IV [facility] Last Admin: 04/18/17 15:06 Dose: 200 mls/hr Morphine Sulfate (Morphine Injection -) 4 mg IVPUSH Q3H PRN PRN Reason: PAIN - Objective Vital Signs: Vital Signs Temperature 97.6 F 04/18/17 15:47 Pulse Rate 94 H 04/18/17 15:47 Respiratory Rate 18 04/18/17 15:47 Blood Pressure 131/82 04/18/17 08:00 O2 Sat by Pulse Oximetry (%) 95 04/17/17 21:00 Constitutional: Yes: Well Nourished, No Distress, Calm Eyes: Yes: Conjunctiva Clear, EOM Intact HENT: Yes: Other (NGT with green output, ~200ml in canister - removed at bedside ) Cardiovascular: Yes: Tachycardia (mild). No: Pulse Irregular Respiratory: Yes: Regular, CTA Bilaterally Gastrointestinal: Yes: Soft, Distention, Hypoactive Bowel Sounds, Tenderness ( minimal LLQ), Other (colostomy pink, still some edema, patent, productive of little gas and serosang liquid (bowel sweat), no stool yet) Genitourinary: No: Hatch Present, Hematuria, Incontinence Extremities: No: Cool, Cyanosis Edema: Yes Edema: LUE: Trace, RUE: Trace, LLE: Trace, RLE: Trace Integumentary: Yes: Incision (midline), Tattoos. No: Jaundice (not noticeable today) Wound/Incision: Yes: [place] Intact (at umbilicus), Dressing Removed (and changed - repacked with saline-damp 4x4's above and below umbilicus, covered with gauze, ABD and tape), Unapproximated (midline). No: Dressing Dry and Intact (intact, serous drainage on dressing) Neurological: Yes: Alert, Oriented Labs: Pathology report back - perforated sigmoid diverticulitis, acute serositis, surgical margins viable Problem List - Problems (1) Diverticulitis of large intestine with perforation without abscess or bleeding Assessment/Plan: POD5 s/p Gerri's procedure for perforated sigmoid diverticulitis NG removed - will start ice chips/sips of water tachycardia improving feeling ok - pain controlled with minimal meds encourage OOB/ambulation IS for pulm toilet midline dressing - continue daily changes IV pain meds prn continue Zosyn, Diflucan - ID on board jaundice improved labs in am colostomy edematous but viable, some flatus, await stool GI/DVT prophylaxis will need [facility] for daily wound care: packing changes of midline wounds (2) with saline-dampened Kerlix or gauze, covered with dry gauze +/- ABD pad and tape will also need [facility] ostomy nurse for new colostomy teaching, stoma care and assistance with identifying and obtaining appropriate supplies F-t-F given to case operator today Code(s): K57.20 - DVTRCLI OF LG INT W PERFORATION AND ABSCESS W/O BLEEDING (2) Fibrinous peritonitis Assessment/Plan: peritoneal fluid culture ?not received in lab? Code(s): K65.8 - OTHER PERITONITIS (3) Sepsis Assessment/Plan: resolving, continue antibiotics Code(s): A41.9 - SEPSIS, UNSPECIFIED ORGANISM Qualifiers: Sepsis type: sepsis due to unspecified organism Qualified Code(s): A41.9 - Sepsis, unspecified organism (4) Dehydration Assessment/Plan: tachycardia improving, stoma edema less; euvolemic - may still be third spacing some Code(s): E86.0 - DEHYDRATION (5) Sinus tachycardia Assessment/Plan: improved Code(s): R00.0 - TACHYCARDIA, UNSPECIFIED (6) Leukocytosis Assessment/Plan: continue to trend Code(s): D72.829 - ELEVATED WHITE BLOOD CELL COUNT, UNSPECIFIED Qualifiers: Leukocytosis type: bandemia Qualified Code(s): D72.825 - Bandemia (7) Bilirubinemia Assessment/Plan: likely biliary stasis continue to trend Code(s): E80.6 - OTHER DISORDERS OF BILIRUBIN METABOLISM
[2017-04-19] MEDS ORDERED: PT OWN MED DRAWER 7, Y5N ONE ×4 (02:21→21:02)
[2017-04-19] MEDS: PIPERACILLIN/TAZOB 3.375 GM 3.375 GM in DEXTROSE 5%-WATER - 100 ML IVPB SCH ×4 (02:22→21:15)
[2017-04-19] MEDS ORDERED: morphine CARPU-JECT 10 MG/1 ML DISP.SYRIN IVPUSH PRN (05:03)
[2017-04-19] MEDS: D5-1/2NS+20 MEQ KCL - 20 MEQ/1,000 ML INFUS.BAG IV SCH ×2 (07:20→15:01)
[2017-04-19 08:05] LABS: HEMATOCRIT 32.6 % (35.4-49); HEMOGLOBIN 10.5 GM/dL (11.7-16.9); MCH 26.6 pg (25.7-33.7); MCHC 32.3 g/dl (32.0-35.9); MEAN CELL VOLUME 82.4 fl (80-96); MEAN PLT VOLUME 7.5 fl (7.5-11.1); PLATELET COUNT 351 K/MM3 (134-434); RBC 3.96 M/mm3 (4.00-5.60); RDW 13.7 % (11.9-15.9); WHITE BLOOD COUNT 17.3 K/mm3 (4.0-10.0)
[2017-04-19 08:32] LABS: CHLORIDE 104 mmol/L (98-107); POTASSIUM 4.2 mmol/L (3.5-5.1); SODIUM 137 mmol/L (136-145)
[2017-04-19 08:50] LABS: ALBUMIN 1.8 g/dl (3.4-5.0); ALK PHOS 77 U/L (45-117); ANION GAP 9 (8-16); BILIRUBIN,TOTAL 2.8 mg/dL (0.2-1.0); BLOOD UREA NITROGEN 7 mg/dL (7-18); CALCIUM 7.5 mg/dL (8.5-10.1); CO2 24 mmol/L (21-32); CREATININE 0.6 mg/dL (0.7-1.3); GLUCOSE,RANDOM 93 mg/dL (74-106); MAGNESIUM 2.1 mg/dL (1.8-2.4); PHOSPHOROUS 3.5 mg/dL (2.5-4.9); SGOT/AST 104 U/L (15-37); SGPT/ALT 101 U/L (12-78); TOT PROT 5.6 g/dl (6.4-8.2)
[2017-04-19] MEDS: FLUCONAZOLE 100 MG/NS 50 ML IVPB SCH (09:47)
[2017-04-19] MEDS: FAMOTIDINE IV 20 MG/12 ML VIAL IVPUSH SCH ×2 (10:56→21:10)
[2017-04-19 11:27] LABS: ACANTHOCYTES 0; ANISOCYTOSIS 0; HELMET CELLS 0; HOWELL-JOLLY BODIES 0; MACROCYTOSIS 0; OVALOCYTE 0; PLATELET ESTIMATE NORMAL; SICKELED CELLS 0; TARGET CELLS 0; TEAR DROP CELLS 0; TOXIC GRANULATION 0
--- NOTE | 2017-04-19 12:12 | PN ---
Progress Note, Physician Chief Complaint: lower abdominal pain History of Present Illness: No overnight events. Pt feeling better daily, has been OOB to chair and ambulating in halls. NG out, has had some ice chips and water. Flatus and some soft brown stool in ostomy bag. at bedside, reviewed midline dressing change with her. Stoma appliance still with good seal, not changed yet. - Current Medication List Current Medications: Active Medications Diphenhydramine HCl (Benadryl Injection -) 25 mg IVPUSH HS PRN PRN Reason: INSOMNIA Last Admin: 04/18/17 00:14 Dose: 25 mg Famotidine (Pepcid 20 Mg/12 Ml Push) 20 mg in 12 mls @ 144 mls/hr IVPUSH BID NATALIE Last Admin: 04/19/17 10:56 Dose: 144 mls/hr Fluconazole (Diflucan 100 Mg/Ns Premixed Ivpb -) 50 mls @ 50 mls/hr IVPB DAILY NATALIE Last Admin: 04/19/17 09:47 Dose: 50 mls/hr Potassium Chloride/Dextrose/Sod Cl (D5-1/2ns+20 Meq Kcl -) 20 meq in 1,000 mls @ 125 mls/hr IV ASDIR NATALIE Last Admin: 04/19/17 07:20 Dose: 125 mls/hr Piperacillin Sod/Tazobactam (Sod 3.375 gm/ Dextrose) 100 mls @ 200 mls/hr IVPB Q6H-IV NATALIE Last Admin: 04/19/17 09:45 Dose: 200 mls/hr Morphine Sulfate (Morphine Injection -) 4 mg IVPUSH Q3H PRN PRN Reason: PAIN Last Admin: 04/19/17 05:28 Dose: 4 mg - Objective Vital Signs: Vital Signs Temperature 98.2 F 04/19/17 06:00 Pulse Rate 85 04/19/17 11:20 Respiratory Rate 20 04/19/17 06:00 Blood Pressure 135/84 04/19/17 06:00 O2 Sat by Pulse Oximetry (%) 99 04/19/17 11:20 Constitutional: Yes: Well Nourished, No Distress, Calm Eyes: Yes: Conjunctiva Clear, EOM Intact. No: Sclera Icterus Cardiovascular: Yes: Regular Rate and Rhythm. No: Murmur Respiratory: Yes: Regular, CTA Bilaterally Gastrointestinal: Yes: Soft, Distention (minimal), Hypoactive Bowel Sounds, Tenderness (minimal incisional), Other (colostomy pink, mildly edematous, productive of gas and soft/liquid light brown stool) Genitourinary: Yes: Polyuria (reported by patient). No: Hatch Present Extremities: No: Cool, Cyanosis Edema: No Integumentary: Yes: Incision (midline), Tattoos. No: Jaundice Wound/Incision: Yes: [place] Intact (at umbilicus), Dressing Dry and Intact, Dressing Removed (wounds clean, mostly pink with some areas of yellow fat still , early granulation, fascia intact; upper wound packed with saline-damp 4x4 gauze, lower with saline-damp Kerlix, covered with gauze and abd pad.), Unapproximated (midline) Neurological: Yes: Alert, Oriented Labs: CBC, BMP 04/19/17 06:24 04/19/17 06:24 CMP Sodium 137 mmol/L (136-145) 04/19/17 06:24 Potassium 4.2 mmol/L (3.5-5.1) 04/19/17 06:24 Chloride 104 mmol/L (98-107) 04/19/17 06:24 Carbon Dioxide 24 mmol/L (21-32) 04/19/17 06:24 Anion Gap 9 (8-16) 04/19/17 06:24 BUN 7 mg/dL (7-18) D 04/19/17 06:24 Creatinine 0.6 mg/dL (0.7-1.3) L 04/19/17 06:24 Creat Clearance w eGFR > 60 (>60) 04/19/17 06:24 Random Glucose 93 mg/dL (74-106) 04/19/17 06:24 Calcium 7.5 mg/dL (8.5-10.1) L 04/19/17 06:24 Phosphorus 3.5 mg/dL (2.5-4.9) D 04/19/17 06:24 Magnesium 2.1 mg/dL (1.8-2.4) 04/19/17 06:24 Total Bilirubin 2.8 mg/dL (0.2-1.0) H 04/19/17 06:24 AST 104 U/L (15-37) H D 04/19/17 06:24 ALT 101 U/L (12-78) H D 04/19/17 06:24 Alkaline Phosphatase 77 U/L (45-117) D 04/19/17 06:24 Total Protein 5.6 g/dl (6.4-8.2) L 04/19/17 06:24 Albumin 1.8 g/dl (3.4-5.0) L 04/19/17 06:24 bili coming down wbc still somewhat up lytes good renal function normal Problem List - Problems (1) Diverticulitis of large intestine with perforation without abscess or bleeding Assessment/Plan: POD6 s/p Gerri's procedure for perforated sigmoid diverticulitis tachycardia better feeling ok - pain controlled with minimal meds will change to po OOB/ambulating IS for pulm toilet colostomy functioning start clears, advance as tolerated midline dressing - continue daily to bid changes ( wants to be able to practice) continue Zosyn, Diflucan - ID on board plan change to oral abx for d/c home - duration per ID jaundice improved labs in am GI/DVT prophylaxis Dr. Ibrahima Macedo will be covering for me until 04/25. will need VNS intermediate for daily wound care: packing changes of midline wounds (2) with saline-dampened roll gauze (lower) or gauze (upper), covered with dry gauze +/- ABD pad and tape will also need VNS ostomy nurse for new colostomy teaching, stoma care and assistance with identifying and obtaining appropriate supplies F-t-F given to family independence case manager Code(s): K57.20 - DVTRCLI OF LG INT W PERFORATION AND ABSCESS W/O BLEEDING (2) Fibrinous peritonitis Assessment/Plan: antibiotics per ID Code(s): K65.8 - OTHER PERITONITIS (3) Sepsis Assessment/Plan: resolving, continue antibiotics Code(s): A41.9 - SEPSIS, UNSPECIFIED ORGANISM Qualifiers: Sepsis type: sepsis due to unspecified organism Qualified Code(s): A41.9 - Sepsis, unspecified organism (4) Dehydration Assessment/Plan: resolved - will stop IVF when tolerating po Code(s): E86.0 - DEHYDRATION (5) Sinus tachycardia Assessment/Plan: much improved Code(s): R00.0 - TACHYCARDIA, UNSPECIFIED (6) Leukocytosis Assessment/Plan: continue to trend Code(s): D72.829 - ELEVATED WHITE BLOOD CELL COUNT, UNSPECIFIED Qualifiers: Leukocytosis type: bandemia Qualified Code(s): D72.825 - Bandemia (7) Bilirubinemia Assessment/Plan: likely biliary stasis improving continue to trend Code(s): E80.6 - OTHER DISORDERS OF BILIRUBIN METABOLISM
[2017-04-19] MEDS ORDERED: IBUPROFEN 600 MG TABLET (FP) PO PRN (12:16)
[2017-04-19] MEDS ORDERED: ACETAMINOPHEN 325 MG TABLET (FP) PO PRN (12:16)
[2017-04-19] MEDS ORDERED: oxyCODONE HCL 5 MG TABLET PO PRN (12:17)
[2017-04-19] MEDS ORDERED: morphine CARPU-JECT 2 MG/1 ML DISP.SYRIN IVPUSH PRN (12:18)
--- NOTE | 2017-04-19 17:04 | PN ---
Progress Note, Physician History of Present Illness: no complints gi function improving gas in the bag - Current Medication List Current Medications: Active Medications Acetaminophen (Tylenol -) 650 mg PO Q6H PRN PRN Reason: FEVER OR PAIN Diphenhydramine HCl (Benadryl Injection -) 25 mg IVPUSH HS PRN PRN Reason: INSOMNIA Last Admin: 04/18/17 00:14 Dose: 25 mg Famotidine (Pepcid 20 Mg/12 Ml Push) 20 mg in 12 mls @ 144 mls/hr IVPUSH BID NATALIE Last Admin: 04/19/17 10:56 Dose: 144 mls/hr Fluconazole (Diflucan 100 Mg/Ns Premixed Ivpb -) 50 mls @ 50 mls/hr IVPB DAILY [facility] Last Admin: 04/19/17 09:47 Dose: 50 mls/hr Piperacillin Sod/Tazobactam (Sod 3.375 gm/ Dextrose) 100 mls @ 200 mls/hr IVPB Q6H-IV NATALIE Last Admin: 04/19/17 15:00 Dose: 200 mls/hr Potassium Chloride/Dextrose/Sod Cl (D5-1/2ns+20 Meq Kcl -) 20 meq in 1,000 mls @ 75 mls/hr IV ASDIR NATALIE Last Admin: 04/19/17 15:01 Dose: 75 mls/hr Ibuprofen (Motrin -) 600 mg PO Q6H PRN PRN Reason: PAIN Morphine Sulfate (Morphine Injection -) 2 mg IVPUSH Q3H PRN PRN Reason: SEVERE PAIN Oxycodone HCl (Roxicodone -) 5 mg PO Q6H PRN PRN Reason: SEVERE PAIN - Objective Vital Signs: Vital Signs Temperature 98.3 F 04/19/17 15:22 Pulse Rate 88 04/19/17 15:22 Respiratory Rate 18 04/19/17 15:22 Blood Pressure 142/93 04/19/17 15:22 O2 Sat by Pulse Oximetry (%) 99 04/19/17 11:20 Constitutional: Yes: No Distress, Calm Cardiovascular: Yes: Regular Rate and Rhythm Respiratory: Yes: Regular, CTA Bilaterally Gastrointestinal: Yes: Normal Bowel Sounds, Soft, Other (colostomy fning) Musculoskeletal: Yes: WNL Extremities: Yes: WNL Neurological: Yes: Alert, Oriented Psychiatric: Yes: Alert, Oriented Labs: CBC, BMP 04/19/17 06:24 04/19/17 06:24 INR, PTT INR 1.35 (0.82-1.09) H 04/11/17 07:30 Assessment/Plan Problem List - Problems (1) Diverticulitis of large intestine with perforation without abscess or bleeding Code(s): K57.20 - DVTRCLI OF LG INT W PERFORATION AND ABSCESS W/O BLEEDING (2) Abdominal pain, suprapubic Code(s): R10.2 - PELVIC AND PERINEAL PAIN (3) Dehydration Code(s): E86.0 - DEHYDRATION (4) Sinus tachycardia Code(s): R00.0 - TACHYCARDIA, UNSPECIFIED (5) Leukocytosis Code(s): D72.829 - ELEVATED WHITE BLOOD CELL COUNT, UNSPECIFIED Qualifiers: Leukocytosis type: bandemia Qualified Code(s): D72.825 - Bandemia wbc has increased plan continue abx monitor wbc await for gi fn to return rest as per surgery if wbc continues to increase might have to scan the belly
[2017-04-20] MEDS: PIPERACILLIN/TAZOB 3.375 GM 3.375 GM in DEXTROSE 5%-WATER - 100 ML IVPB SCH ×4 (03:30→22:34)
[2017-04-20] MEDS: D5-1/2NS+20 MEQ KCL - 20 MEQ/1,000 ML INFUS.BAG IV SCH ×3 (07:03→22:33)
[2017-04-20 07:59] LABS: HEMATOCRIT 34.5 % (35.4-49); HEMOGLOBIN 11.3 GM/dL (11.7-16.9); MCH 26.7 pg (25.7-33.7); MCHC 32.7 g/dl (32.0-35.9); MEAN CELL VOLUME 81.6 fl (80-96); MEAN PLT VOLUME 7.4 fl (7.5-11.1); PLATELET COUNT 398 K/MM3 (134-434); RBC 4.23 M/mm3 (4.00-5.60); RDW 13.8 % (11.9-15.9); WHITE BLOOD COUNT 15.6 K/mm3 (4.0-10.0)
[2017-04-20 08:33] LABS: ANION GAP 11 (8-16); BLOOD UREA NITROGEN 8 mg/dL (7-18); CALCIUM 7.9 mg/dL (8.5-10.1); CHLORIDE 104 mmol/L (98-107); CO2 22 mmol/L (21-32); CREATININE 0.7 mg/dL (0.7-1.3); GLUCOSE,RANDOM 103 mg/dL (74-106); POTASSIUM 4.1 mmol/L (3.5-5.1); SGOT/AST 110 U/L (15-37); SODIUM 137 mmol/L (136-145)
[2017-04-20 08:34] LABS: ALK PHOS 95 U/L (45-117); BILIRUBIN,TOTAL 2.2 mg/dL (0.2-1.0); SGPT/ALT 134 U/L (12-78); TOT PROT 5.9 g/dl (6.4-8.2)
[2017-04-20] MEDS ORDERED: PT OWN MED DRAWER 7, Y5N ONE ×2 (09:32→22:31)
[2017-04-20] MEDS: FLUCONAZOLE 100 MG/NS 50 ML IVPB SCH (09:45)
[2017-04-20 09:58] LABS: PLATELET ESTIMATE INCREASED
--- NOTE | 2017-04-20 09:59 | PN ---
Progress Note, Physician History of Present Illness: patient stable wbc trending down no complaints stool noted in the bag - Current Medication List Current Medications: Active Medications Acetaminophen (Tylenol -) 650 mg PO Q6H PRN PRN Reason: FEVER OR PAIN Diphenhydramine HCl (Benadryl Injection -) 25 mg IVPUSH HS PRN PRN Reason: INSOMNIA Last Admin: 04/18/17 00:14 Dose: 25 mg Famotidine (Pepcid 20 Mg/12 Ml Push) 20 mg in 12 mls @ 144 mls/hr IVPUSH BID NATALIE Last Admin: 04/19/17 21:10 Dose: 144 mls/hr Fluconazole (Diflucan 100 Mg/Ns Premixed Ivpb -) 50 mls @ 50 mls/hr IVPB DAILY [facility] Last Admin: 04/20/17 09:45 Dose: 50 mls/hr Piperacillin Sod/Tazobactam (Sod 3.375 gm/ Dextrose) 100 mls @ 200 mls/hr IVPB Q6H-IV NATALIE Last Admin: 04/20/17 09:45 Dose: 200 mls/hr Potassium Chloride/Dextrose/Sod Cl (D5-1/2ns+20 Meq Kcl -) 20 meq in 1,000 mls @ 75 mls/hr IV ASDIR NATALIE Last Admin: 04/20/17 07:03 Dose: 75 mls/hr Ibuprofen (Motrin -) 600 mg PO Q6H PRN PRN Reason: PAIN Morphine Sulfate (Morphine Injection -) 2 mg IVPUSH Q3H PRN PRN Reason: SEVERE PAIN Oxycodone HCl (Roxicodone -) 5 mg PO Q6H PRN PRN Reason: SEVERE PAIN - Objective Vital Signs: Vital Signs Temperature 98.4 F 04/20/17 06:00 Pulse Rate 97 H 04/20/17 06:00 Respiratory Rate 20 04/20/17 06:00 Blood Pressure 113/79 04/20/17 06:00 O2 Sat by Pulse Oximetry (%) 99 04/19/17 21:00 Constitutional: Yes: No Distress, Calm Cardiovascular: Yes: Regular Rate and Rhythm Respiratory: Yes: Regular, CTA Bilaterally Gastrointestinal: Yes: Normal Bowel Sounds, Soft Musculoskeletal: Yes: WNL Extremities: Yes: WNL Wound/Incision: Yes: Clean/Dry Neurological: Yes: Alert, Oriented Psychiatric: Yes: Alert, Oriented Labs: CBC, BMP 04/20/17 06:00 04/20/17 06:00 INR, PTT INR 1.35 (0.82-1.09) H 04/11/17 07:30 Assessment/Plan Problem List - Problems (1) Diverticulitis of large intestine with perforation without abscess or bleeding Code(s): K57.20 - DVTRCLI OF LG INT W PERFORATION AND ABSCESS W/O BLEEDING (2) Abdominal pain, suprapubic Code(s): R10.2 - PELVIC AND PERINEAL PAIN (3) Dehydration Code(s): E86.0 - DEHYDRATION (4) Sinus tachycardia Code(s): R00.0 - TACHYCARDIA, UNSPECIFIED (5) Leukocytosis Code(s): D72.829 - ELEVATED WHITE BLOOD CELL COUNT, UNSPECIFIED Qualifiers: Leukocytosis type: bandemia Qualified Code(s): D72.825 - Bandemia wbc has increased plan continue abx monitor wbc continue wound care rest as per surgery i
[2017-04-20] MEDS: FAMOTIDINE IV 20 MG/12 ML VIAL IVPUSH SCH ×2 (10:54→22:34)
--- NOTE | 2017-04-20 12:44 | PN ---
Progress Note, Physician Chief Complaint: abdominal pain History of Present Illness: Patient was seen and examined in follow-up s/p Gerri's for a perforated diverticulitis. No acute overnight events. He reports feeling more normal. he has been OOB to chair and ambulating in halls. Tolerating his clear liquids and having flatus and soft brown stool in colostomy. at bedside, reviewed procedure for midline dressing and colostomy change. - Current Medication List Current Medications: Active Medications Acetaminophen (Tylenol -) 650 mg PO Q6H PRN PRN Reason: FEVER OR PAIN Diphenhydramine HCl (Benadryl Injection -) 25 mg IVPUSH HS PRN PRN Reason: INSOMNIA Last Admin: 04/18/17 00:14 Dose: 25 mg Famotidine (Pepcid 20 Mg/12 Ml Push) 20 mg in 12 mls @ 144 mls/hr IVPUSH BID NATALIE Last Admin: 04/19/17 21:10 Dose: 144 mls/hr Fluconazole (Diflucan 100 Mg/Ns Premixed Ivpb -) 50 mls @ 50 mls/hr IVPB DAILY [facility] Last Admin: 04/20/17 09:45 Dose: 50 mls/hr Piperacillin Sod/Tazobactam (Sod 3.375 gm/ Dextrose) 100 mls @ 200 mls/hr IVPB Q6H-IV NATALIE Last Admin: 04/20/17 09:45 Dose: 200 mls/hr Potassium Chloride/Dextrose/Sod Cl (D5-1/2ns+20 Meq Kcl -) 20 meq in 1,000 mls @ 75 mls/hr IV ASDIR NATALIE Last Admin: 04/20/17 07:03 Dose: 75 mls/hr Ibuprofen (Motrin -) 600 mg PO Q6H PRN PRN Reason: PAIN Morphine Sulfate (Morphine Injection -) 2 mg IVPUSH Q3H PRN PRN Reason: SEVERE PAIN Oxycodone HCl (Roxicodone -) 5 mg PO Q6H PRN PRN Reason: SEVERE PAIN - Objective Vital Signs: Vital Signs Temperature 98.4 F 04/20/17 06:00 Pulse Rate 97 H 04/20/17 06:00 Respiratory Rate 20 04/20/17 06:00 Blood Pressure 113/79 04/20/17 06:00 O2 Sat by Pulse Oximetry (%) 99 04/19/17 21:00 Constitutional: Yes: Well Nourished, No Distress Eyes: Yes: Conjunctiva Clear, EOM Intact HENT: Yes: Atraumatic, Normocephalic Neck: Yes: Supple, Trachea Midline Cardiovascular: Yes: Regular Rate and Rhythm, S1, S2 Respiratory: Yes: Regular, CTA Bilaterally Gastrointestinal: Yes: Normal Bowel Sounds, Soft, Other (colostomy with gas and stool) Genitourinary: No: CVA Tenderness - Left, CVA Tenderness - Right Edema: No Peripheral Pulses WNL: Yes Peripheral Pulses: Left Doralis Pedis: 2+, Right Dorsalis Pedis: 2+ Wound/Incision: Yes: Clean/Dry, Dressing Removed, Unapproximated Neurological: Yes: Alert, Oriented (wet-to-dry applied to the midline, LLQ colostomy replaced) Psychiatric: Yes: Alert, Oriented Labs: CBC, BMP 04/20/17 06:00 04/20/17 06:00 INR, PTT INR 1.35 (0.82-1.09) H 04/11/17 07:30 Problem List - Problems (1) Diverticulitis of intestine with perforation Assessment/Plan: POD7 s/p Gerri's procedure for perforated sigmoid diverticulitis tachycardia better pain controlled with minimal meds Full liquids ordered OOB/ambulating continue IS colostomy functioning Leukocytosis decreasing midline dressing and colostomy care - continue daily to bid changes ( is practicing) continue Zosyn, Diflucan - ID on board plan change to oral abx for d/c home - duration per ID repeat labs in am GI/DVT prophylaxis Code(s): K57.80 - DVTRCLI OF INTEST, PART UNSP, W PERF AND ABSCESS W/O BLEED Qualifiers: Diverticulitis site: unspecified part of intestinal tract Diverticulitis bleeding: without bleeding Qualified Code(s): K57.80 - Diverticulitis of intestine, part unspecified, with perforation and abscess without bleeding (2) Diverticulitis of large intestine with perforation without abscess or bleeding Code(s): K57.20 - DVTRCLI OF LG INT W PERFORATION AND ABSCESS W/O BLEEDING (3) Leukocytosis Code(s): D72.829 - ELEVATED WHITE BLOOD CELL COUNT, UNSPECIFIED Qualifiers: Leukocytosis type: bandemia Qualified Code(s): D72.825 - Bandemia (4) Sepsis Code(s): A41.9 - SEPSIS, UNSPECIFIED ORGANISM Qualifiers: Sepsis type: sepsis due to unspecified organism Qualified Code(s): A41.9 - Sepsis, unspecified organism
[2017-04-21] MEDS: PIPERACILLIN/TAZOB 3.375 GM 3.375 GM in DEXTROSE 5%-WATER - 100 ML IVPB SCH ×4 (03:42→20:42)
--- NOTE | 2017-04-21 06:46 | PN ---
Progress Note, Physician Chief Complaint: abdominal pain History of Present Illness: Patient was seen and examined in follow-up s/p Gerri's for a perforated diverticulitis. No events overnight. He reports feeling more normal. he has been OOB to chair and ambulating in halls. Tolerating his full liquid diet and having flatus and soft brown stool in colostomy. at bedside, reviewed procedure for midline dressing and colostomy change. - Current Medication List Current Medications: Active Medications Acetaminophen (Tylenol -) 650 mg PO Q6H PRN PRN Reason: FEVER OR PAIN Diphenhydramine HCl (Benadryl Injection -) 25 mg IVPUSH HS PRN PRN Reason: INSOMNIA Last Admin: 04/18/17 00:14 Dose: 25 mg Famotidine (Pepcid 20 Mg/12 Ml Push) 20 mg in 12 mls @ 144 mls/hr IVPUSH BID NATALIE Last Admin: 04/20/17 22:34 Dose: 144 mls/hr Fluconazole (Diflucan 100 Mg/Ns Premixed Ivpb -) 50 mls @ 50 mls/hr IVPB DAILY [facility] Last Admin: 04/20/17 09:45 Dose: 50 mls/hr Piperacillin Sod/Tazobactam (Sod 3.375 gm/ Dextrose) 100 mls @ 200 mls/hr IVPB Q6H-IV NATALIE Last Admin: 04/21/17 03:42 Dose: 200 mls/hr Potassium Chloride/Dextrose/Sod Cl (D5-1/2ns+20 Meq Kcl -) 20 meq in 1,000 mls @ 75 mls/hr IV ASDIR NATALIE Last Admin: 04/20/17 22:33 Dose: 75 mls/hr Ibuprofen (Motrin -) 600 mg PO Q6H PRN PRN Reason: PAIN Morphine Sulfate (Morphine Injection -) 2 mg IVPUSH Q3H PRN PRN Reason: SEVERE PAIN Oxycodone HCl (Roxicodone -) 5 mg PO Q6H PRN PRN Reason: SEVERE PAIN - Objective Vital Signs: Vital Signs Temperature 98.5 F 04/20/17 22:00 Pulse Rate 100 H 04/20/17 22:00 Respiratory Rate 20 04/20/17 22:00 Blood Pressure 128/85 04/20/17 22:00 O2 Sat by Pulse Oximetry (%) 96 04/20/17 21:00 Vital Signs Period Temp Pulse Resp BP Sys/Kolb Pulse Ox Last 24 Hr 98.3 F-98.6 F 100-106 18-20 124-149/70-95 96-96 Constitutional: Yes: Well Nourished, No Distress Eyes: Yes: Conjunctiva Clear, EOM Intact HENT: Yes: Atraumatic, Normocephalic Neck: Yes: Supple, Trachea Midline Cardiovascular: Yes: Regular Rate and Rhythm, S1, S2. No: Murmur Respiratory: Yes: Regular, CTA Bilaterally Gastrointestinal: Yes: Normal Bowel Sounds, Soft, Other (functioning colostomy) ...Rectal Exam: Yes: Deferred Genitourinary: No: CVA Tenderness - Left, CVA Tenderness - Right Musculoskeletal: No: Muscle Pain, Muscle Weakness Extremities: No: Cool, Cyanosis Edema: No Peripheral Pulses WNL: Yes Peripheral Pulses: Left Doralis Pedis: 2+, Right Dorsalis Pedis: 2+ Wound/Incision: Yes: Dressing Removed (wet to dry changed, noted top is granulating, bottom is draining nor sero purulent material, fascia is intact and visiable. continue wet to dry), Unapproximated (W) Problem List - Problems (1) Diverticulitis of intestine with perforation Assessment/Plan: POD7 s/p Gerri's procedure for perforated sigmoid diverticulitis, pain controlled with minimal meds, regular diet ordered for lunch and he tolerated it well, OOB/ambulating, continue IS, colostomy functioning, Leukocytosis decreasing now 13 today down from 15 yesterday and afebrile, midline dressing and colostomy care - continue daily to bid changes ( is practicing) continue Zosyn, Diflucan - ID on board plan change to oral augmentin for [address] Rodarte repeat labs in am GI/DVT prophylaxis considertig D/C sunday if VNS can be arranged Code(s): K57.80 - DVTRCLI OF INTEST, PART UNSP, W PERF AND ABSCESS W/O BLEED Qualifiers: Diverticulitis site: unspecified part of intestinal tract Diverticulitis bleeding: without bleeding Qualified Code(s): K57.80 - Diverticulitis of intestine, part unspecified, with perforation and abscess without bleeding (2) Diverticulitis of large intestine with perforation without abscess or bleeding Code(s): K57.20 - DVTRCLI OF LG INT W PERFORATION AND ABSCESS W/O BLEEDING (3) Leukocytosis Code(s): D72.829 - ELEVATED WHITE BLOOD CELL COUNT, UNSPECIFIED Qualifiers: Leukocytosis type: bandemia Qualified Code(s): D72.825 - Bandemia (4) Sepsis Code(s): A41.9 - SEPSIS, UNSPECIFIED ORGANISM Qualifiers: Sepsis type: sepsis due to unspecified organism Qualified Code(s): A41.9 - Sepsis, unspecified organism
[2017-04-21 08:35] LABS: ALBUMIN 2.1 g/dl (3.4-5.0); ANION GAP 9 (8-16); BLOOD UREA NITROGEN 6 mg/dL (7-18); CALCIUM 7.9 mg/dL (8.5-10.1); CHLORIDE 106 mmol/L (98-107); CO2 22 mmol/L (21-32); CREATININE 0.7 mg/dL (0.7-1.3); GLUCOSE,RANDOM 98 mg/dL (74-106); POTASSIUM 4.3 mmol/L (3.5-5.1); SGOT/AST 108 U/L (15-37); SGPT/ALT 168 U/L (12-78); SODIUM 137 mmol/L (136-145)
[2017-04-21 08:37] LABS: ALK PHOS 103 U/L (45-117); BILIRUBIN,TOTAL 1.6 mg/dL (0.2-1.0)
[2017-04-21] MEDS ORDERED: PT OWN MED DRAWER 7, Y5N ONE ×5 (08:40→21:50)
[2017-04-21 09:05] LABS: HEMATOCRIT 35.7 % (35.4-49); HEMOGLOBIN 11.4 GM/dL (11.7-16.9); MCH 26.3 pg (25.7-33.7); MEAN CELL VOLUME 82.1 fl (80-96); MEAN PLT VOLUME 7.4 fl (7.5-11.1); PLATELET COUNT 476 K/MM3 (134-434); RBC 4.35 M/mm3 (4.00-5.60); WHITE BLOOD COUNT 13.8 K/mm3 (4.0-10.0)
[2017-04-21] MEDS: FLUCONAZOLE 100 MG/NS 50 ML IVPB SCH (10:09)
[2017-04-21 11:39] LABS: ANISOCYTOSIS 0; MACROCYTOSIS 0; PLATELET ESTIMATE INCREASED
[2017-04-21] MEDS: FAMOTIDINE IV 20 MG/12 ML VIAL IVPUSH SCH ×2 (11:47→22:38)
--- NOTE | 2017-04-21 13:17 | PN ---
Progress Note, Physician History of Present Illness: stable doing well on oral diet colostomy working well - Current Medication List Current Medications: Active Medications Acetaminophen (Tylenol -) 650 mg PO Q6H PRN PRN Reason: FEVER OR PAIN Diphenhydramine HCl (Benadryl Injection -) 25 mg IVPUSH HS PRN PRN Reason: INSOMNIA Last Admin: 04/18/17 00:14 Dose: 25 mg Famotidine (Pepcid 20 Mg/12 Ml Push) 20 mg in 12 mls @ 144 mls/hr IVPUSH BID NATALIE Last Admin: 04/21/17 11:47 Dose: 144 mls/hr Fluconazole (Diflucan 100 Mg/Ns Premixed Ivpb -) 50 mls @ 50 mls/hr IVPB DAILY [facility] Last Admin: 04/21/17 10:09 Dose: 50 mls/hr Piperacillin Sod/Tazobactam (Sod 3.375 gm/ Dextrose) 100 mls @ 200 mls/hr IVPB Q6H-IV NATALIE Last Admin: 04/21/17 09:18 Dose: 200 mls/hr Potassium Chloride/Dextrose/Sod Cl (D5-1/2ns+20 Meq Kcl -) 20 meq in 1,000 mls @ 75 mls/hr IV ASDIR NATALIE Last Admin: 04/20/17 22:33 Dose: 75 mls/hr Ibuprofen (Motrin -) 600 mg PO Q6H PRN PRN Reason: PAIN Morphine Sulfate (Morphine Injection -) 2 mg IVPUSH Q3H PRN PRN Reason: SEVERE PAIN Oxycodone HCl (Roxicodone -) 5 mg PO Q6H PRN PRN Reason: SEVERE PAIN - Objective Vital Signs: Vital Signs Temperature 98.5 F 04/20/17 22:00 Pulse Rate 100 H 04/20/17 22:00 Respiratory Rate 20 04/20/17 22:00 Blood Pressure 128/85 04/20/17 22:00 O2 Sat by Pulse Oximetry (%) 96 04/20/17 21:00 Constitutional: Yes: No Distress, Calm Cardiovascular: Yes: Regular Rate and Rhythm Respiratory: Yes: Regular, CTA Bilaterally Gastrointestinal: Yes: Normal Bowel Sounds, Soft, Other (colostomy in place) Musculoskeletal: Yes: WNL Extremities: Yes: WNL Neurological: Yes: Alert, Oriented Psychiatric: Yes: Alert, Oriented Labs: CBC, BMP 04/21/17 08:30 04/21/17 07:00 INR, PTT INR 1.35 (0.82-1.09) H 04/11/17 07:30 Assessment/Plan Problem List - Problems (1) Diverticulitis of large intestine with perforation without abscess or bleeding Code(s): K57.20 - DVTRCLI OF LG INT W PERFORATION AND ABSCESS W/O BLEEDING (2) Abdominal pain, suprapubic Code(s): R10.2 - PELVIC AND PERINEAL PAIN (3) Dehydration Code(s): E86.0 - DEHYDRATION (4) Sinus tachycardia Code(s): R00.0 - TACHYCARDIA, UNSPECIFIED (5) Leukocytosis Code(s): D72.829 - ELEVATED WHITE BLOOD CELL COUNT, UNSPECIFIED Qualifiers: Leukocytosis type: bandemia Qualified Code(s): D72.825 - Bandemia wbc has increased plan continue abx can change to oral augmentin from tomorrow give augmentin 875 mg bid for another 5 days rest as per primary
[2017-04-21] MEDS: D5-1/2NS+20 MEQ KCL - 20 MEQ/1,000 ML INFUS.BAG IV SCH (14:20)
[2017-04-22] MEDS: PIPERACILLIN/TAZOB 3.375 GM 3.375 GM in DEXTROSE 5%-WATER - 100 ML IVPB SCH ×2 (04:45→08:26)
[2017-04-22 07:41] LABS: HEMATOCRIT 37.8 % (35.4-49); HEMOGLOBIN 12.1 GM/dL (11.7-16.9); MCH 26.3 pg (25.7-33.7); MEAN CELL VOLUME 82.1 fl (80-96); MEAN PLT VOLUME 7.3 fl (7.5-11.1); PLATELET COUNT 513 K/MM3 (134-434); RDW 14.1 % (11.9-15.9); WHITE BLOOD COUNT 14.8 K/mm3 (4.0-10.0)
[2017-04-22] MEDS ORDERED: PT OWN MED DRAWER 7, Y5N ONE (08:25)
[2017-04-22] MEDS: FLUCONAZOLE 100 MG/NS 50 ML IVPB SCH (09:31)
--- NOTE | 2017-04-22 10:46 | DS ---
Physical Examination Vital Signs: Vital Signs Temperature 97.9 F 04/22/17 07:21 Pulse Rate 75 04/22/17 07:21 Respiratory Rate 18 04/22/17 07:21 Blood Pressure 122/80 04/22/17 07:21 O2 Sat by Pulse Oximetry (%) 97 04/21/17 21:00 Vital Signs Period Temp Pulse Resp BP Sys/Kolb Pulse Ox Last 24 Hr 97.7 F-98.5 F 75-110 18-20 122-136/77-82 97 Findings/Remarks: Tolerating Regular diet, Ambulating, Functioning colostomy, patient and instructed on wound care and colostomy care. VNS arranged. Leukocystosis improved over 3 days. ID reccomended a home antibiotic course. patient is feeling great and wants to go home. Constitutional: Yes: Well Nourished, No Distress, Calm Eyes: Yes: Conjunctiva Clear, EOM Intact HENT: Yes: Atraumatic, Normocephalic Neck: Yes: Supple, Trachea Midline Cardiovascular: Yes: Regular Rate and Rhythm, S1, S2. No: Murmur Respiratory: Yes: Regular, CTA Bilaterally Gastrointestinal: Yes: Normal Bowel Sounds, Soft, Other (colostomy functionings brown pasty stool and gas in bag) Renal/: No: CVA Tenderness - Left, CVA Tenderness - Right Musculoskeletal: No: Muscle Pain, Muscle Weakness Extremities: No: Cool, Cyanosis Edema: No Peripheral Pulses WNL: Yes Peripheral Pulses: Left Doralis Pedis: 2+, Right Dorsalis Pedis: 2+ Wound/Incision: Yes: Clean/Dry, Dressing Removed, Unapproximated Neurological: Yes: Alert, Oriented Psychiatric: Yes: Alert, Oriented Labs: CBC, BMP 04/22/17 06:00 04/21/17 07:00 Discharge Summary Reason For Visit: ABDOMINAL PAIN Current Active Problems Abdominal pain, suprapubic (Acute) Bilirubinemia (Acute) Dehydration (Acute) Diverticulitis of intestine with perforation (Acute) Diverticulitis of large intestine with perforation without abscess or bleeding ( Acute) Fibrinous peritonitis (Acute) Leukocytosis (Acute) Sepsis (Acute) Sinus tachycardia (Acute) Procedures: Principal: Jimenes's Procedure Hospital Course: 36yo male presented on 04/09 to the ED with abdominal pain. His also had some mild abdominal pain, so they thought it was something they both ate at first. Leukocystosis was >20K and a CT scan of the abdomen and pelvis showed contained perforation of sigmoid diverticulitis. He was admitted for non- operative management of the perforation with IV antibiotics and IVF hydration. 3 days later the pain worsened after a bowel movement and a repeat scan showed a more generalized perforation with a larger amount of pneumoperitoneum. He was taken on 04/13 for Hartmans Procedure. He did well post operatively. Currently he is tolerating regular diet, Ambulating, Functioning colostomy, patient and instructed on wound care and colostomy care. VNS arranged. Leukocystosis improved over 3 days. ID recommended a home antibiotic course. patient is feeling great and wants to go home. In preparation for discharge, the time spent reviewing chart, examining patient, talking with providers and/ or family and documentation is 40 minutes. This patient is critically ill. Time spent reviewing chart, examining patient, talking with providers and/or family and documentation is XX minutes Condition: Improved - Instructions Diet, Activity, Other Instructions: Postoperative instructions: You had a sigmoid colon resection and colostomy for perforated diverticulitis on 04/13/[address] Dom Avalos of [facility]. Activity: Resume your usual activities gradually, but no heavy exertion or lifting more than 10-20 pounds for ~6 weeks. You may shower daily, but no bath or swimming, just pat the incision areas dry and replace wound dressings afterward. Eat lightly at first, but advance to a low-fiber diet as tolerated. Wound Care: The base of the colostomy appliance needs to be changed when it starts to leak or about weekly, depending on how it is doing. A visiting ostomy nurse should help you and your family learn to care for the ostomy. A visiting nurse should come to help start and teach daily dressing changes for your abdominal wounds - daily cleansing and packing with saline-dampened gauze, then covering with dry gauze with or without an absorbent pad over, and tape to hold in place. Pain: For pain, you may use and alternate Tylenol (acetaminophen) and/or ibuprofen every 6 hours each as needed; this means that you can take one OR the other at 3-hour intervals. If you are prescribed a Tylenol/narcotic combination for severe pain, use it instead of plain Tylenol as needed and switch back when your pain starts decreasing. Do not take more than 4000mg of acetaminophen in a day. Take medications as prescribed or indicated on the labeling. Follow-up: Call Dr. Avalos's office at [phone] to make your postop appointment (Sunday 1-2 weeks after discharge as advised). Clinic is held in the Diagnostic Center on the first floor of [facility]. Call the office if you have: * increasing pain not responsive to pain medication * fever of 101F or higher * vomiting * unusual or increasing bleeding or drainage from wounds * increasing redness or swelling at wound sites * inability to urinate Also, you have been referred to Dr. Rell Ramirez for primary care. Please make an appointment within the next few weeks. Referrals: Rell Ramirez MD [Staff Physician] - 2 Weeks Disposition: HOME - Home Medications Comprehensive Discharge Medication List: Ambulatory Orders Amox-Tr/K Cl [Augmentin - 875Mg Tablet] 1 tab PO BID 5 Days #10 tablet 04/22/17
[2017-04-22 11:07] LABS: ANISOCYTOSIS 1+; PLATELET ESTIMATE INCREASED
[2017-04-22] MEDS: FAMOTIDINE IV 20 MG/12 ML VIAL IVPUSH SCH (11:41)
[2017-04-22 12:40] VITALS: BP 132/76; PULSE 107; TEMP 97.7
--- NOTE | 2017-04-24 10:12 | OP ---
DATE OF OPERATION: 04/13/2017 PREOPERATIVE DIAGNOSIS: Perforated sigmoid diverticulitis. POSTOPERATIVE DIAGNOSIS: Perforated sigmoid diverticulitis. PROCEDURE: Sigmoidectomy with colostomy (Gerri's procedure). SURGEON: Dom Avalos MD METAL FURNITURE GLAZIER: Ibrahima Macedo MD ANESTHESIA: General endotracheal. ESTIMATED BLOOD LOSS: 300 mL. FLUIDS: Crystalloid 2800 mL. URINE OUTPUT: 400 mL. DRAINS: NG tube, Hatch catheter, and colostomy. SPECIMENS: Sigmoid colon to pathology and peritoneal fluid culture to microbiology. FINDINGS: Sigmoid perforation in the pelvis with gross contamination, with a clear area of initial containment lined by inflammatory peel, approximately 800 mL of ascites suctioned out. Culture was taken on entry. Resection of the affected segment was done and an end-colostomy performed. A 57-mm ostomy appliance was used, and the skin was packed open above and below the umbilicus. DISPOSITION: Intubated to ICU for recovery and ongoing care. INDICATIONS FOR PROCEDURE: The patient is a 36-year-old healthy male who was in his usual state of health until 5 days ago. He was admitted 4 days prior to surgery with 1 day's onset of lower middle abdominal pain associated with some nausea and vomiting, prompting his initial visit to the emergency room at the [facility]. In the ER, he was somewhat tachycardic in the low 100s, had a low-grade temperature and a white count of 23,500. He was dehydrated by labs, and a CT was done with IV contrast showing sigmoid diverticulitis with a mostly contained perforation in the pelvic mesentery, with only a couple of locules of air in the nearby mesentery and above the liver. There was no lesley abscess, no drainable fluid collection, and only a very small amount of fluid in the pelvis and mesentery. He was admitted to surgery, started on fluids and IV antibiotics in the form of Zosyn and began feeling better fairly quickly. He was kept in the hospital on this regimen and n.p.o. until the day before surgery when he had been given an initial p.o. trial of clear liquids, which he had been tolerating. He had had a large bowel movement the night before and actually felt much better , but woke up in the morning with sudden pain in the suprapubic area which continued to persist and become progressively worse over the course of the morning. He was immediately made n.p.o. again and sent for repeat CT scan with p.o. and IV contrast, which showed significantly more pneumoperitoneum, as well as an increase in the contained perforation. He was then transferred from [place] to [facility] for emergent operation. Risks, benefits, and alternatives of exploratory laparotomy, bowel resection, and possible ostomy were discussed with the patient and his , including but not limited to bleeding, infection, bowel injury or leak, intraabdominal or pelvic abscess, hernia, anastomotic leak or breakdown , and possibility of additional surgery being necessary for stoma reversal. The patient understands and agrees with going ahead. Informed consent was signed for the same, and he is now brought into the operating room for this procedure. OPERATIVE TECHNIQUE: The patient was brought to the operating room and laid supine on the operating table. Sequential compression devices were applied to bilateral lower extremities, and his scheduled doses of Zosyn were continued appropriately. After induction and intubation by Anesthesia, a Hatch catheter was placed in the patient's bladder. A nasogastric tube was also placed by Anesthesia, both of which were left in at the end of the case, and his abdomen was clipped of hair, prepped and draped in sterile fashion. A midline incision going around the umbilicus to the right was made with a scalpel and carried into subcutaneous tissues with electrocautery, until the abdominal wall fascia was identified and scored along most of the length of the incision. The preperitoneal fat was split in the upper portion of the incision and the peritoneum grasped with the tips of 2 clamps, elevated, and entered with Metzenbaum scissors. A fingertip was introduced into the abdominal cavity to ensure entry and that there were no adhesions, and the peritoneum was opened with electrocautery over the entire length of the incision, using fingers to protect the bowels. Once the incision had been opened along its entire length, the peritoneal fluid was cultured on entry with a swab and noted to be yellowish. We began our initial inspection by somewhat eviscerating the small bowel, following it down to the pelvis. Blunt dissection was used with fingertips to separate the loops of bowel from the areas where they were stuck against the inflamed areas in the pelvis, and Dunn suction was used to collect the ascites as we searched for the area of perforation. As the small bowel was moved up and away from the pelvis, there were clear inflammatory changes and some inflammatory peel present along the segments that had been involved with the contained perforation of the pelvis, and then as the perforation of the sigmoid colon was clearly identified and noted to be moderate - sized, the hole was approximately 1 cm in diameter with some active spillage including particulate matter. Once this area had been opened up, the small bowel was eviscerated as much as possible to isolate the sigmoid colon and was covered with damp towels. With the perforation identified in the distal sigmoid, additional blunt dissection was used to mobilize this portion of the sigmoid colon, at which point it also became clear that the perforation was more in the mid to lower sigmoid, but the sigmoid itself was rather folded and stuck against the upper rectum. Once the perforation had been identified, attention was then also turned to isolating the sigmoid colon and mobilizing it along the white line of Toldt proximally up the left side of the colonic gutter. The descending colon was identified and noted to be fairly normal a short distance proximally. Electrocautery dissection was undertaken to separate the white line of Toldt from the pelvis up the left-hand side, mobilizing the colon medially until an area for proximal transection could be identified, and we would clearly have enough length for a colostomy. As there was a significant amount of contamination directly in the pelvis, primary anastomosis was not an option. The area for proximal transection was identified, and a window created in the mesentery at the edge of the bowel wall with a fingertip and electrocautery, to allow the passage of a BRAXTON-80 stapler and transection of the proximal colon margin. A LigaSure impact device was then used to begin transecting the mesentery distally toward the pelvis, staying close to the bowel wall. It was at this point that some additional blunt dissection was undertaken at the distal aspect of the specimen just beyond the perforation. We were able to identify that the sigmoid was actually folded against the proximal rectum, and as this was loosened up bluntly, the peritoneum behind the distal sigmoid colon along the mesentery itself was palpable around behind the specimen. With careful manipulation and a small bit of blunt dissection, a window was then created around the distal portion of the specimen to be transected. Once a fingertip could be passed behind the rectosigmoid, a TA60 stapler was introduced and able to be manipulated through this opening, and we were able to transect the sigmoid a few centimeters distal to the perforation itself, leaving a rectal stump that was tagged at both corners with a Prolene stitch. The LigaSure impact device was used to complete dissection of the mesentery from both proximal and distal ends until the specimen was completely and was able to be passed off the table for pathology. Hemostasis was achieved throughout the procedure with electrocautery as needed. Gross spillage was retrieved with suction where possible until the resection was complete, at which point towels were changed out and irrigation of the abdominal cavity was undertaken with warm saline solution primarily in the left lower quadrant and pelvis, but also in other quadrants to ensure that all fluid being suctioned out ran clear. Once everything had been irrigated, we also turned attention to ensuring that the distal aspect of the proximal transection point which was to be turned into the colostomy limb was mobilized enough to be able to bring out the left lower quadrant as a colostomy. This required a little bit of additional mobilization along the white line of Toldt and some scoring of the peritoneum over the mesentery just enough to be able to bring it directly through the abdominal wall above where it lay. This was noted to have plenty of length on it at this point , and a site was chosen on the abdominal wall for colostomy formation. The skin was grasped with a Pérez clamp and elevated and a small disk of skin removed with a scalpel. A small core of fat was removed with electrocautery down to the abdominal wall fascia, and with Pérez clamps on the fascia pulling toward the midline to ensure that the stoma came straight down to the tissues, the fascia was incised in cruciate fashion with electrocautery. The muscle was split and the peritoneum also incised with electrocautery and stretched to allow the passage of 2-3 fingers. A [place] clamp was inserted through the opening and used to draw the colostomy limb up through the abdominal wall and out the opening. This was left for maturation at the end of the case. Again, once irrigation and suctioning of the abdomen and pelvis had been completed, hemostasis was assured, the small bowel was returned entirely to the abdominal cavity. The appendix was noted to be normal, and the omentum was drawn down over the bowel. The midline fascia was then closed with 2 No. 1 running looped PDS sutures, starting from the top and the bottom and meeting in the middle. The knot was drawn down against the fascia under ther umbilicus, and the area around the umbilicus closed with aviva at the skin, leaving open wounds above and below the umbilicus to be packed with Iodoform gauze at the end of the procedure. The midline incision was then again irrigated in both those portions and covered with a clean towel and attention turned to maturing the colostomy. This was done by opening most of the staple line with electrocautery, and 3-0 Vicryl interrupted sutures were used at the 4 corners, first to Dilcia the 4 corners of the colostomy, and then additional sutures were placed in between the corners , 2 and 3 per quadrant, until the entire edge of the colostomy had been secured to the skin edge. A fingertip was used to ensure patency through the fascia, and a colostomy appliance of size 57 mm was cut carefully to accommodate just the rim of the colostomy edge and applied, with Benzoin first on the skin, and the bag was attached over the appliance base. The midline incisions were then packed with Iodoform strips, covered with gauze and an ABD pad and secured with tape for a dressing. Again, the patient's nasogastric tube and Hatch catheter were left in at the end of the case. Anesthesia had elected to leave the patient intubated, and he was then moved back to a stretcher to be taken to the intensive care unit for continued recovery and ongoing care. Counts were correct at the end of the procedure. Dr. Macedo was an essential surgeon assistant throughout the procedure from facilitating entry into the abdominal cavity, to retraction throughout the case, assistance with mobilizing the colon, performing the transection and anastomosis, closing the midline incision, and maturing the colostomy. Dom Avalos M.D. [id number] MTDD
== END 2017-04-22 12:12 | disposition home or self-care (01) | DRG 329 ==
LOC: FER 10:26 → FM/S 15:51 → J8W 04-13 18:30 → JICU 04-13 23:12 → J8W 04-15 14:44
PROVIDERS: ADMIT Surgery; ATTEND Surgery
PROC: 0D1N0Z4 Bypass Sigmoid Colon to Cutaneous, Open Approach (ICD-10-PCS; 2017-04-13)
PROC: 0DTN0ZZ Resection of Sigmoid Colon, Open Approach (ICD-10-PCS; principal; 2017-04-13 19:41)
DX: K57.20 Diverticulitis of large intestine with perforation and abscess without bleeding (principal); K65.8 Other peritonitis; A41.9 Sepsis, unspecified organism; E86.0 Dehydration; R00.0 Tachycardia, unspecified; D72.829 Elevated white blood cell count, unspecified
CPT/HCPCS: 36415; 36600; 71010-TC; 74177-TC; 80048; 80053; 81003; 81015; 82803; 83605; 83735; 84100; 85025; 85027; 85610; 85730; 86850; 86900; 86901; 87040; 87086; 88307-TC; 93005; 94002; 94010; 94760; 99285-25

== ENCOUNTER 2017-08-13 05:26 | Inpatient (IN) | payer BC ==
[2017-08-10 16:04] VITALS: BMI 26.4
[2017-08-13] MEDS ORDERED: fentaNYL CITRATE 250 MCG/5 ML VIAL ONE (07:41)
[2017-08-13] MEDS ORDERED: ROCURONIUM BROMIDE 50 MG/5 ML VIAL ONE ×2 (07:42→09:33)
[2017-08-13] MEDS ORDERED: PROPOFOL 20 ML ONE (07:42)
[2017-08-13] MEDS ORDERED: MIDAZOLAM HCL 2 MG/2 ML SINGLE DOSE VIAL ONE (07:42)
[2017-08-13] MEDS ORDERED: CEFOXITIN SODIUM 2 GM in DEXTROSE 5%-WATER - 100 ML IVPB ONE (08:10)
[2017-08-13] MEDS ORDERED: CEFOXITIN SODIUM 2 GM IVPB ONE (08:18)
--- NOTE | 2017-08-13 08:19 | HP ---
History & Physical Update - History History: No Change Currently as noted:: from H&P 07/25/17 - Physical Physical: No Change - Assessment Assessment: No Change Currently as noted:: Gerri's with colostomy - Plan Plan: No Change Currently as noted:: for reversal with rigid proctoscopy
[2017-08-13] MEDS ORDERED: SUCCINYLCHOLINE CHLORIDE 200 MG/10 ML VIAL ONE (08:29)
[2017-08-13] MEDS ORDERED: cefOXitin SODIUM 1 GM VIAL (RESTRICTED TO ID) IVPB ONE ×2 (08:47→11:47)
[2017-08-13] MEDS ORDERED: DEXAMETHASONE SOD PHOSPHATE 4 MG/1 ML VIAL ONE (09:10)
[2017-08-13] MEDS ORDERED: CEFOXITIN SODIUM 1 GM IVPB ONE ×2 (11:22→11:47)
[2017-08-13] MEDS ORDERED: DESFLURANE GAS 240 ML BOTTLE IH ONE (13:24)
[2017-08-13] MEDS ORDERED: ONDANSETRON 4 MG/2 ML VIAL IVPUSH PRN (14:10)
[2017-08-13] MEDS ORDERED: HYDROmorphone *PCA* 10MG/50ML DISP.SYRIN PCA SCH (14:15)
[2017-08-13] MEDS ORDERED: MEPERIDINE HCL CARPU-JECT 25 MG/1 ML DISP.SYRIN ONE (14:19)
--- NOTE | 2017-08-13 14:43 | OP ---
Operative Note - Note: Operative Date: 08/13/17 Pre-Operative Diagnosis: colostomy status Operation: rigid proctocscopy, reversal of Gerri's (colostomy) procedure, scar revision Findings: good prep; rectal mucosa appeared normal; moderate-length rectal stump, portion removed proximally to facilitate anastomosis, 28 EEA anastomosis done, both donuts intact; no bubbles after extra suture placed at right posterior staple line; old stoma site peritoneum and fascia closed separately, dermis purse-string placed and site packed; old scar removed for staple skin closure Post-Operative Diagnosis: Same as Pre-op Surgeon: Dom Avalos Nutritionalist: Ibrahima Macedo Anesthesiologist/COST CONTROL ANALYST: George Willis Anesthesia: General Specimens Removed: colostomy, portion of rectum, anastomotic rings all sent to pathology; scar not sent Estimated Blood Loss (mls): 100 Drains & Tubes with Location: Hatch to gravity Drains, Volume Out (mls): 500 (UOP) Fluid Volume Replaced (mls): 2,300 (crystalloid) Operative Report Dictated: Yes
[2017-08-13] MEDS ORDERED: morphine CARPU-JECT 2 MG/1 ML DISP.SYRIN IVPUSH PRN (14:47)
[2017-08-13] MEDS: LACTATED RINGERS SOLUTION 1,000 ML IV SCH ×3 (15:00→20:30)
[2017-08-13] MEDS ORDERED: CEFOXITIN SODIUM 2 GM in DEXTROSE 5%-WATER - 100 ML IVPB SCH (18:00)
[2017-08-14] MEDS: CEFOXITIN SODIUM 2 GM in DEXTROSE 5%-WATER - 100 ML IVPB SCH ×2 (00:07→06:09)
[2017-08-14] MEDS ORDERED: HYDROmorphone *PCA* 10MG/50ML DISP.SYRIN PCA ONE (04:27)
[2017-08-14] MEDS: HYDROmorphone *PCA* 10MG/50ML DISP.SYRIN PCA SCH (04:34)
[2017-08-14] MEDS ORDERED: PT OWN MED DRAWER 7, Y5N ONE (05:44)
[2017-08-14] MEDS: LACTATED RINGERS SOLUTION 1,000 ML IV SCH (06:11)
[2017-08-14 08:21] LABS: HEMATOCRIT 40.9 % (35.4-49); HEMOGLOBIN 13.6 GM/dL (11.7-16.9); MCH 26.2 pg (25.7-33.7); MCHC 33.2 g/dl (32.0-35.9); MEAN CELL VOLUME 78.8 fl (80-96); MEAN PLT VOLUME 8.2 fl (7.5-11.1); PLATELET COUNT 189 K/MM3 (134-434); RBC 5.19 M/mm3 (4.00-5.60); WHITE BLOOD COUNT 17.4 K/mm3 (4.0-10.0)
[2017-08-14 08:48] LABS: ANION GAP 11 (8-16); BLOOD UREA NITROGEN 13 mg/dL (7-18); CALCIUM 8.6 mg/dL (8.5-10.1); CHLORIDE 102 mmol/L (98-107); CO2 27 mmol/L (21-32); CREATININE 1.1 mg/dL (0.7-1.3); GLUCOSE,RANDOM 126 mg/dL (74-106); MAGNESIUM 2.2 mg/dL (1.8-2.4); POTASSIUM 4.3 mmol/L (3.5-5.1); SODIUM 140 mmol/L (136-145)
--- NOTE | 2017-08-14 09:01 | PN ---
Progress Note (short form) - Note Progress Note: POD #1 - s/p reversal of Gerri's under GA with [employer] for post op pain management. VSS. Pt. doing well, resting comfortably in bed. No complaints. Good pain control. No apparent anesthetic complications noted. Will continue [employer] for now. Continue currrent care.
[2017-08-14] MEDS ORDERED: LACTATED RINGERS SOLUTION 1,000 ML IV SCH (12:53)
--- NOTE | 2017-08-14 12:59 | PN ---
Progress Note, Physician History of Present Illness: Pt s/p Gerri's reversal with rigid proctoscopy and scar revision. Seen sitting up in chair having clears for lunch, examined in bed. Pain minimal, has been using PRODUCTION STAGE MANAGER occasionally, mostly overnight to help with sleep. Tolerating clears, no nausea. Hatch with 1900ml out. Has not ambulated yet. - Current Medication List Current Medications: Active Medications Hydromorphone HCl (Dilaudid Associate Dentist -) 0 mg PRODUCTION STAGE MANAGER PRODUCTION STAGE MANAGER NATALIE PRN Reason: Protocol Stop: 08/20/17 14:09 Last Admin: 08/14/17 04:34 Dose: 10 mg Lactated Ringer's (Lactated Ringers Solution) 1,000 mls @ 10 mls/hr IV ASDIR NATALIE - Objective Vital Signs: Vital Signs Temperature 97.9 F 08/14/17 06:00 Pulse Rate 78 08/14/17 06:00 Respiratory Rate 18 08/14/17 06:00 Blood Pressure 112/67 08/14/17 06:00 O2 Sat by Pulse Oximetry (%) 98 08/13/17 21:00 Constitutional: Yes: Well Nourished, No Distress, Calm Eyes: Yes: Conjunctiva Clear, EOM Intact HENT: Yes: Atraumatic, Normocephalic Cardiovascular: Yes: Tachycardia (mild). No: Pulse Irregular, Murmur Respiratory: Yes: Regular, CTA Bilaterally, On Nasal O2 (with PRODUCTION STAGE MANAGER) Gastrointestinal: Yes: Soft, Hypoactive Bowel Sounds, Tenderness (incisional mainly, LLQ near wound, no jessica/guard). No: Distention Genitourinary: Yes: Hatch Present. No: Hematuria Musculoskeletal: No: Joint Stiffness, Joint Swelling Extremities: No: Cool, Cyanosis Edema: No Integumentary: Yes: Incision (dressed). No: Rash Wound/Incision: Yes: Viviana Intact (midline), Dressing Removed (at old stoma site and changed - wound clean, packing replaced; midline dressing retaped), Unapproximated (at old stoma site, 1/2" iodoform packing used to refill site, mild serosang drainage on old dressing, wound appears clean). No: Dressing Dry and Intact (strikethrough present, tape partly off left edge), Reddened Neurological: Yes: Alert, Oriented Labs: CBC, BMP 08/14/17 07:30 08/14/17 07:30 Mg 2.2 Problem List - Problems (1) Status post colostomy takedown Assessment/Plan: POD1 s/p reversal of Gerri's procedure (initially for perforated diverticulitis with peritonitis), with scar revision and rigid proctoscopy tolerating clears, doing well no bowel function yet up in chair, planning to ambulate Hatch with good output - d/c and monitor UOP pain controlled with minimal use of PRODUCTION STAGE MANAGER - will plan to start tylenol/ibuprofen by tomorrow and d/c PRODUCTION STAGE MANAGER with narcotics prn/breakthrough then completed postop antibiotics KVO fluids for PRODUCTION STAGE MANAGER only, will stop when PRODUCTION STAGE MANAGER d/c'd bump in wbc anticipated - expect to decrease lytes ok DVT prophylaxis - early ambulation, SCDs encourage OOB, IS use Code(s): Z98.890 - OTHER SPECIFIED POSTPROCEDURAL STATES (2) Open wound of LLQ of abdominal wall w/o penentrat into periton cavity Assessment/Plan: old stoma site with packing - dressing changed wound clean will need daily wound care on discharge pt had VNS prior - will have SW/CM reinstate with family teaching instructions will be in d/c plan Code(s): S31.104A - UNSP OPN WND ABD WALL, LEFT LOW Q W/O PENET PERIT CAV, INIT Qualifiers: Encounter type: initial encounter Qualified Code(s): S31.104A - Unspecified open wound of abdominal wall, left lower quadrant without penetration into peritoneal cavity, initial encounter (3) H/O diverticulitis of colon Code(s): Z87.19 - PERSONAL HISTORY OF OTHER DISEASES OF THE DIGESTIVE SYSTEM (4) H/O peritonitis Code(s): Z87.19 - PERSONAL HISTORY OF OTHER DISEASES OF THE DIGESTIVE SYSTEM
[2017-08-15 08:18] LABS: BASO % 0.1 % (0-2.0); EOS % 0.2 % (0-4.5); HEMATOCRIT 37.5 % (35.4-49); HEMOGLOBIN 12.6 GM/dL (11.7-16.9); LYMPH % 22.1 % (8-40); MCH 26.4 pg (25.7-33.7); MCHC 33.6 g/dl (32.0-35.9); MEAN CELL VOLUME 78.5 fl (80-96); MONO % 8.2 % (3.8-10.2); NEUT % 69.4 % (42.8-82.8); PLATELET COUNT 173 K/MM3 (134-434); RBC 4.78 M/mm3 (4.00-5.60); WHITE BLOOD COUNT 11.5 K/mm3 (4.0-10.0)
[2017-08-15 08:43] LABS: ANION GAP 4 (8-16); BLOOD UREA NITROGEN 14 mg/dL (7-18); CALCIUM 8.4 mg/dL (8.5-10.1); CHLORIDE 104 mmol/L (98-107); CO2 31 mmol/L (21-32); CREATININE 0.8 mg/dL (0.7-1.3); GLUCOSE,RANDOM 88 mg/dL (74-106); POTASSIUM 3.9 mmol/L (3.5-5.1); SODIUM 139 mmol/L (136-145)
[2017-08-15] MEDS ORDERED: oxyCODONE HCL 5 MG TABLET PO PRN (09:45)
--- NOTE | 2017-08-15 10:27 | PN ---
Progress Note, Physician History of Present Illness: Pt s/p Gerri's reversal with rigid proctoscopy and scar revision. Seen sitting up in chair, examined in bed. Pain minimal, has been using PATIENT ACCESS COORDINATOR occasionally; none now. Tolerating clears, no nausea, no flatus yet, but feels "rumbling" like it's coming soon. Ambulating, voided since Hatch out, light yellow per pt. Moving well. - Current Medication List Current Medications: Active Medications Acetaminophen (Tylenol -) 650 mg PO 0300,0900,1500,2100 NATALIE Hydromorphone HCl (Dilaudid Warehouse Consultant -) 0 mg PATIENT ACCESS COORDINATOR PATIENT ACCESS COORDINATOR NATALIE PRN Reason: Protocol Stop: 08/20/17 14:09 Last Admin: 08/14/17 04:34 Dose: 10 mg Lactated Ringer's (Lactated Ringers Solution) 1,000 mls @ 10 mls/hr IV ASDIR NATALIE Last Admin: 08/14/17 13:20 Dose: 10 mls/hr Ibuprofen (Motrin -) 600 mg PO Q6HPO NATALIE Oxycodone HCl (Roxicodone -) 5 mg PO Q4H PRN PRN Reason: PAIN LEVEL 7 - 10 - Objective Vital Signs: Vital Signs Temperature 98.9 F 08/15/17 09:00 Pulse Rate 99 H 08/15/17 09:00 Respiratory Rate 20 08/15/17 09:00 Blood Pressure 112/70 08/15/17 09:00 O2 Sat by Pulse Oximetry (%) 97 08/15/17 09:00 Vital Signs Period Temp Pulse Resp BP Sys/Kolb Pulse Ox Last 24 Hr 98.1 F-98.9 F 83-100 18-20 112-134/67-74 97-98 Constitutional: Yes: Well Nourished, No Distress, Calm Eyes: Yes: Conjunctiva Clear, EOM Intact HENT: Yes: Atraumatic, Normocephalic Cardiovascular: Yes: Tachycardia (mild). No: Pulse Irregular Respiratory: Yes: Regular, CTA Bilaterally Gastrointestinal: Yes: Normal Bowel Sounds, Soft, Tenderness (mild lower abd/ pelvis and incisional, appropriate postop). No: Distention Genitourinary: No: Hatch Present, Incontinence Musculoskeletal: No: Joint Stiffness, Joint Swelling Extremities: No: Cool, Cyanosis Edema: No Integumentary: Yes: Incision (midline with aviva). No: Erythema, Rash Wound/Incision: Yes: Clean/Dry, Well Approximated, Aviva Intact, Open to air ( aviva left PREVENTIVE MAINTENANCE ENGINEER), Dressing Dry and Intact (serous drainage on old stoma site dsg, intact), Dressing Removed (from midline and wound), Unapproximated (old stoma site, wound clean; serosang on iodoform, no active drainage - repacked with 1/2" iodoform, covered with gauze and tape). No: Reddened Neurological: Yes: Alert, Oriented. No: Unsteady Gait Psychiatric: Yes: Alert, Oriented Labs: CBC, BMP 08/15/17 07:40 08/15/17 07:40 wbc down Problem List - Problems (1) Status post colostomy takedown Assessment/Plan: POD2 s/p reversal of Gerri's procedure (initially for perforated diverticulitis with peritonitis), with scar revision and rigid proctoscopy tolerating clears, doing well no bowel function yet but good bowel sounds up in chair and ambulating Hatch out, voiding well pain controlled with minimal use of PATIENT ACCESS COORDINATOR - will start tylenol/ibuprofen with oxycodone prn/breakthrough and d/c PATIENT ACCESS COORDINATOR d/c IV fluids wbc back down lytes ok DVT prophylaxis - early ambulation, SCDs using IS with good effort await flatus to advance diet await BM prior to discharge Code(s): Z98.890 - OTHER SPECIFIED POSTPROCEDURAL STATES (2) Open wound of LLQ of abdominal wall w/o penentrat into periton cavity Assessment/Plan: old stoma site with packing - dressing changed wound clean will need daily wound care on discharge pt had VNS prior - will have SW/CM reinstate with family teaching instructions in d/c plan Code(s): S31.104A - UNSP OPN WND ABD WALL, LEFT LOW Q W/O PENET PERIT CAV, INIT Qualifiers: Encounter type: initial encounter Qualified Code(s): S31.104A - Unspecified open wound of abdominal wall, left lower quadrant without penetration into peritoneal cavity, initial encounter (3) H/O diverticulitis of colon Code(s): Z87.19 - PERSONAL HISTORY OF OTHER DISEASES OF THE DIGESTIVE SYSTEM (4) H/O peritonitis Code(s): Z87.19 - PERSONAL HISTORY OF OTHER DISEASES OF THE DIGESTIVE SYSTEM
[2017-08-15] MEDS: ACETAMINOPHEN 325 MG TABLET (FP) PO SCH ×3 (10:45→21:34)
[2017-08-15] MEDS: IBUPROFEN 600 MG TABLET (FP) PO SCH ×3 (12:39→23:30)
--- NOTE | 2017-08-15 14:51 | PATH ---
Surgical Pathology Report Patient Name: PAM TENORIO [facility]. Rec. #: [id number] /Age/Gender: 1980 (Age: 36) / M Account: [id number] Location: [address] [place] [address]/[facility] Taken: 08/13/2017 Received: 08/14/2017 Reported: 08/15/2017 Physicians: Dom Avalos M.D. Specimen(s) Received A: COLOSTOMY STOMA B: PORTION RECTUM C: ANASTOMOSIS RING Clinical History Colostomy status Final Diagnosis A. COLOSTOMY, REVERSAL OF HERNANDEZ'S COLOSTOMY: SQUAMOCOLUMNAR MUCOSA WITH MILD CHRONIC INFLAMMATION CONSISTENT WITH COLOSTOMY SITE. SURGICAL MARGINS ARE VIABLE. B. RECTUM, EXCISION: COLONIC MUCOSA WITH VASCULAR CONGESTION AND FOCAL EDEMA. SURGICAL MARGINS ARE VIABLE. C. ANASTOMOSIS RINGS, EXCISION: SEGMENTS OF COLON WITH FOCAL HEMORRHAGE (2). Electronically Signed Darleen Hanks M.D. Gross Description A. Received in formalin labeled "colostomy," is a 3.7 x 2.2 cm cho, elliptical portion of skin with a central os. There is a 3.7 cm in length portion of bowel attached to the skin, consistent with a colostomy specimen. The bowel displays a stapled mucosal margin. The bowel mucosa is cho with normal folds. No lesions are identified. Braille Duplicating Machine Operator sections are submitted in 2 cassettes as follows: 1-Braille Duplicating Machine Operator colostomy; 2-stapled mucosal margin. B. Received in formalin labeled "portion of rectum," is a 4.7 cm in length portion of bowel with one open and one stapled mucosal margin. The open mucosal margin and surrounding mucosa appears edematous. The remaining mucosa is cho with normal folds. Braille Duplicating Machine Operator sections are submitted in 4 cassettes as follows: 1-open mucosal margin; 2-stapled mucosal margin; 5-6-wjntanmvlumqof bowel. C. Received in formalin labeled "anastomosis rings x2," are 2 annular portions of bowel measuring 1.5 and 2.3 cm in diameter. No discrete lesions are identified. Braille Duplicating Machine Operator sections are submitted in 2 cassettes. /08/14/2017 saudi08/14/2017
--- NOTE | 2017-08-15 15:44 | PN ---
Progress Note (short form) - Note Progress Note: Patient stable.MANAGER EDITORIAL Dc today.Patient has very little pain.No any anesthesia related problem.Patient Dc from the anestheia care.
[2017-08-15] MEDS ORDERED: PT OWN MED DRAWER 7, Y5N ONE (23:33)
--- NOTE | 2017-08-16 01:50 | OP ---
DATE OF OPERATION: 08/13/2017 PREOPERATIVE DIAGNOSIS: Colostomy status. POSTOPERATIVE DIAGNOSIS: Colostomy status. PROCEDURE: Rigid proctoscopy, reversal of Gerri's (colostomy) procedure, and scar revision. SURGEON: Dom Avalos MD CREDIT ASSESSMENT ANALYST: Ibrahima Macedo MD ANESTHESIA: General endotracheal. ESTIMATED BLOOD LOSS: 100 mL. FLUIDS: 2300 mL of crystalloid. URINE OUTPUT: 500 mL. DRAINS: Hatch to gravity. SPECIMENS: Colostomy, portion of rectum, and anastomotic rings all sent to Pathology. The scar was not sent. FINDINGS: The patient was adequately prepped. The rectal mucosa appeared normal. There was a moderate length rectal stump, a portion of which was removed proximally to facilitate the anastomosis. A 28-EEA anastomosis was done with both donuts intact. There were no bubbles present after an extra suture was placed at the right posterior staple line. The old scar was removed for stapled skin closure. At the old stoma site, peritoneum and fascia were closed separately, and a dermal pursestring placed with the site packed open. DISPOSTION: Stable and extubated to PACU. INDICATIONS FOR PROCEDURE: The patient is a 36-year-old male who underwent Gerri's procedure (sigmoid resection and colostomy) for perforated diverticulitis with peritonitis 4 months ago. His postoperative course was significant for secondary intention healing of his midline wounds above and below the umbilicus , and the lower aspect of the wound experienced a small portion of fascial dehiscence. He has since healed both of his midline wounds. His colostomy is functioning well , and he was seen in the office to discuss reversal of his colostomy, for which he currently presents. Risks, benefits, and alternatives of the procedure including, but not limited to bleeding, infection, injury to intraabdominal structures, breakdown of the anastomosis, intestinal leak or intraabdominal abscess, need for diverting ileostomy, hernia, and were all discussed with the patient, who has signed informed consent for the procedure as noted. He is brought back to the OR for the same. OPERATIVE TECHNIQUE: The patient was brought to the operating room and laid supine on the operating table. Sequential compression devices were applied to bilateral lower extremities, and 2 g of Cefoxitin was given as preoperative antibiotic, which was redosed at 3 hours into the case. After induction and intubation by anesthesia, the patient's abdominal hair was clipped. A Hatch catheter was placed, which was left in at the end of the case. Prior to prep, the patient's colostomy was closed with a running silk suture. Rigid proctoscopy was first carried out to examine the patient's anorectum and rectal stump. The rectal mucosa appeared normal. There was a small bit of soft material still in the rectal vault, believed to be the remnants of his suppository for bowel prep, and just a few small soft pieces of stool which were evacuated manually. A moderate-sized length of rectal stump to 16 cm on the rigid sigmoidoscope was appreciated. The abdomen was then prepped and draped with ChloraPrep, and the perineal area and rectum were prepped with betadine. Incision was made through the skin and scar tissue with a scalpel and carried into the subcutaneous tissues with electrocautery, to encompass the patient's existing scarred areas, with a plan to revise the amount of skin taken at the conclusion of the procedure prior to final closure. The old scar itself was excised with electrocautery and not sent to pathology, as the patient had no findings of any malignant concern on his initial pathology report. The abdominal wall fascia was identified in the upper portion of the incision and scored until the preperitoneal fat was encountered. The peritoneum was entered bluntly, and a fingertip inserted to ensure entry into the abdominal cavity. The peritoneum was then opened along the rest of the incision with electrocautery, with fingers protecting the bowel contents underneath. There were a few filmy adhesions of omentum to the anterior abdominal wall. These were lysed as we went with a combination of blunt and electrocautery dissection. Once we were able to open the incision along its entire length, a few adhesions of small bowel to itself and the abdominal wall were also lysed with electrocautery or bluntly , where they were thin and filmy. The lower portion of the scar had been particularly adherent to the underlying fascia, but the bowel and omentum actually peeled off very easily. The area of the stoma underneath the left lower quadrant was identified. The omentum and mesentery of the stoma were then slowly and circumferentially freed where it was possible from the anterior abdominal wall, until we were able to get around the entire portion of colon that had been drawn up through the abdominal wall. Then, the ostomy site from the top, cutting cautery was used to incise circumferentially around the site of the stoma, and electrocautery on coagulation current was used to deepen this incision into the subcutaneous fat. As we neared the fascial level, the bowel wall was also clearly identified. It was not violated. We were ultimately able to free the stoma nearly circumferentially around this core of skin and subcutaneous tissue, down to where it passed through the fascia. A fingertip was used to break through and connect the internal with the external opening. As the stoma was freed up, it was passed with Babcocks on the external portion through to the inside of the abdominal cavity. The Babcocks were then replaced on the other side, until the stoma was entirely freed from its adherence to the abdominal wall. Once this had been accomplished, again, a few more adhesions of small bowel and omentum to this loop of colon were , so that the proximal stump could be brought down towards the pelvis, ensuring that it reached close enough to the rectal stump and did not require further mobilization. The small bowel was then gently packed superiorly in the abdominal cavity, so that we could identify the rectal stump with the Prolene stitches on the corners. Thin filmy adhesions of bowel to bowel were with a combination of blunt or electrocautery dissection where appropriate as we went. The rectal stump was then identified, snaps placed on each of the identifying sutures, and it was freed up circumferentially to evaluate the length of rectum available for anastomosis. The distal portion of the colostomy itself was amputated with GIA60 stapler, taking off only the portion which had passed through the abdominal wall. This was passed off for a pathology specimen. The staple line was noted to have some healthy oozing, which was controlled with a small bit of cautery. The two stumps were laid over each other and noted to reach quite easily without tension for anastomosis, and attention was turned to sizing the rectum for the EEA anastomosis. Dr. Macedo went down to the bottom of the table and began passing sized dilators up the anorectum, beginning with a 25. We encountered some initial difficulty with navigating the angle at the top of the rectal vault around the sacrum, up into the most proximal portion of the stump, but were ultimately able to pass both the 25 and a 27 and then a 29 dilator up into this area. When a 31 dilator was attempted to pass, there was a small serosal tear that occurred in the anterior tenia of the rectosigmoid junction. The dilator was quickly removed, and the serosal tear repaired with two silk sutures. A 28-EEA stapler was then chosen to perform the anastomosis. Attempts to pass the stapler up the same path as the dilators resulted in some difficulty, again navigating the angle, leading to concern for potential injury to the rectal wall. We could clearly get the head of the stapler up into the distal aspect of the remaining stump where it was both visible in the pelvic cavity and reached without tension to the proximal stump. Thus we elected to, rather than leave a portion of a blind pouch on the proximal rectum, remove a short additional length of the distal stump to allow for a direct anastomosis. A window was made around the mesenteric side of this distal stump then, at just about the level of the serosal repair, through which a TA60 stapler was passed and used to carefully transect the distal stump closer to where the stapler could comfortably reach. The suture repair was removed with the specimen. The LigaSure Impact device was then used to completely divide the remaining mesentery, and the portion of rectum resected was passed off for a pathology specimen. As Dr. Macedo had rescrubbed and come back up top for this portion of the operation, we also at this point elected to place the anvil in the proximal stump. A pursestring of 2-0 silk was placed near the corner of the distal stump to surround the anticipated area of anvil placement. When this had been accomplished, and before it was tied, the Bovie was used to make a small hole in the bowel wall, which was widened with a mosquito clamp. The edges were carefully held open. The anvil head was lubricated and slid into the proximal stump with the pin sticking out. The pursestring suture was then tied snugly around the base of the pin, preparing this end for anastomosis. The suture was left long. Dr. Macedo then returned to the foot of the table and resized the rectum with the dilators to ensure easy passage of the stapler. The 28-EEA stapler head was then passed up into the rectum, visualized against the anterior rectal wall in the pelvis, and the pin was brought out anterior to the existing staple line and connected to the anvil in the proximal stump. The stapler was closed ensuring no extraneous tissue was included; it was fired, opened and carefully removed with both anastomotic donuts appearing entirely intact. The proximal bowel was then occluded with manual pressure. The pelvis was filled with saline solution and air introduced into the rectum from below by Dr. Macedo, with a small initial stream of bubbles appearing at the right posterior edge of the anastomosis, where the EEA staple line was near adjacent to the existing staple line of the stump. Two 2-0 silk sutures were used to close this area (one figure of eight and one simple), after which the bubble test was reperformed with no extravasation of air whatsoever. Dr. Macedo rescrubbed and came back to the top of the table. All sponges were removed from the abdominal cavity. We then undertook irrigation of the pelvis and abdomen with a couple of liters of warm saline solution, which was suctioned clear. The field was inspected for hemostasis. There was no active bleeding identified anywhere. The peritoneum underlying the old ostomy site was closed with a running 2-0 Vicryl suture. A series of 0-Vicryl chyyip-op-mtzax sutures were used from the external side to close the fascia over the muscle transversely in [id number] fashion. All sutures were laid in prior to being tied, after which the stoma site was also irrigated and suctioned clear of fluid. Gowns and gloves were then changed by all members of the surgical team. Instrument sets were changed, and the patient's abdominal area was redraped off with four clean towels prior to undertaking closure of the abdominal fascia. Additional scar revision was undertaken to ensure removal of all scarred portions of the skin and subcutaneous tissue, primarily in the inferior aspect of the incision, such that we could have appropriate closure of the subcutaneous fat and [id number] at the dermal portion of the incisional closure. The anterior fascial surface was also cleared where needed with cautery along the length of the incision. The omentum was drawn down over the abdominal contents. The abdominal fascia was closed with two number 1 looped PDS running sutures, starting at each end and being tied in the middle. The suture knot was tacked down with a 3 -0 Vicryl stitch. Subcutaneous tissues were irrigated, and the skin was closed with aviva. Prior to packing the old stoma site, a 3-0 Vicryl suture was used as a pursestring in the dermal layer to partially snug the opening a little bit smaller, to facilitate earlier wound closure. The site was then packed with 1-inch Iodoform and covered with gauze. The stapled incision was also covered with gauze and tape used to secure both areas. Counts were correct at the end of the procedure, both prior to and after final closure of the abdomen. The Hatch catheter was left in at the end of the procedure. The patient was then awakened and extubated by anesthesia. He was moved back to a stretcher and taken to the recovery room in stable condition, having tolerated the procedure well. Dr. Macedo was an essential cable splicer assistant throughout the procedure and performed all of the anorectal intraoperative portions of the procedure, although I did perform the initial rigid proctoscopy. Dom Avalos M.D. KANA/[id number] MTDD
[2017-08-16] MEDS: ACETAMINOPHEN 325 MG TABLET (FP) PO SCH ×2 (03:00→10:17)
[2017-08-16] MEDS: IBUPROFEN 600 MG TABLET (FP) PO SCH (06:33)
[2017-08-16] MEDS ORDERED: PT OWN MED DRAWER 7, Y5N ONE (06:40)
[2017-08-16] MEDS: HYDROmorphone *PCA* 10MG/50ML DISP.SYRIN PCA SCH (07:26)
[2017-08-16 10:08] VITALS: BP 119/72; PULSE 103; TEMP 98.3
--- NOTE | 2017-08-16 10:15 | DS ---
Physical Examination Vital Signs: Vital Signs Temperature 98.3 F 08/16/17 10:07 Pulse Rate 103 H 08/16/17 10:07 Respiratory Rate 16 08/16/17 10:07 Blood Pressure 119/72 08/16/17 10:07 O2 Sat by Pulse Oximetry (%) 97 08/15/17 21:00 Findings/Remarks: Pt seen sitting in chair, examined in bed. Feeling well. Has had gas and a few BMs, mostly liquid - brown at first, last was greenish. Tolerating low fiber diet. Ambulating, voiding. Pain controlled with alternating Tylenol and ibuprofen, has not needed narcotic. Using IS well. No fevers or nausea. Constitutional: Yes: Well Nourished, No Distress, Calm Eyes: Yes: Conjunctiva Clear, EOM Intact HENT: Yes: Atraumatic, Normocephalic Cardiovascular: Yes: Regular Rate and Rhythm, Tachycardia (mild). No: Murmur Respiratory: Yes: Regular, CTA Bilaterally Gastrointestinal: Yes: Normal Bowel Sounds, Soft, Tenderness (mild RLQ and minimal incisional). No: Distention ...Rectal Exam: Yes: Deferred Musculoskeletal: No: Joint Stiffness, Joint Swelling Extremities: No: Cool, Cyanosis Edema: No Integumentary: Yes: Incision (midline with aviva), Tattoos (L posterior shoulder). No: Erythema, Rash Wound/Incision: Yes: Clean/Dry, Well Approximated, [place] Intact, Open to air ( midline), Dressing Dry and Intact (old stoma site), Dressing Removed (and changed - wound measures 4cm x 1.5cm x 3cm deep with cavity a little larger than wound opening; clean, minimal serosang drainage on packing, repacked with 1 /2" iodoform, covered with gauze and tape), Unapproximated (old stoma site). No : Reddened Neurological: Yes: Alert, Oriented Labs: no new labs Pathology benign, consistent with resection of colostomy, portion of rectum, anastomotic rings. Discharge Summary Reason For Visit: COLOSTOMY STATUS Current Active Problems Colostomy status (Acute) H/O diverticulitis of colon (Acute) H/O peritonitis (Acute) Open wound of LLQ of abdominal wall w/o penentrat into periton cavity (Acute) - surgical wound/old ostomy site Status post colostomy takedown (Acute) Procedures: Principal: rigid proctoscopy, reversal of Gerri's (colostomy) procedure, scar revision Hospital Course: 36yo M with h/o perforated diverticulitis with peritonitis in March, s/p Gerri's procedure 04/13/17 admitted after reversal of colostomy with proctoscopy and scar revision for postoperative care. He had a [employer]ER for pain intially, which was used intermittently. He was started on clear liquids after surgery and tolerated. Hatch was removed POD1, and patient voided. 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 He is ambulating, and diet was advanced to low-fiber after he passed flatus and his first small BM. He has since had a few more liquid BMs, and is tolerating diet. The old stoma site is being packed with 1/2" iodoform, covered with gauze and tape. Aviva in midline are intact without redness or drainage. The patient is discharged home with lifting restrictions, VNS to assist with daily wound care, and able to return to work next week. A prescription for Percocet #12 has been sent to his pharmacy, in case of more significant pain, which he may choose not to fill unless needed. He will follow up with surgery in 2 weeks, and will call to f/u with PMD as well. Time spent on discharge: 35 minutes Condition: Good - Instructions Diet, Activity, Other Instructions: Postoperative instructions: You had reversal of your colostomy with scar revision on 08/13/[address] Dom Avalos of [facility]. Activity: Resume your usual activities gradually, but no heavy exertion or lifting more than 10-15 pounds for 4-6 weeks. You may shower daily starting then , just pat the incision areas dry. No bath or swimming until skin incisions have healed. [place] should not need to be recovered with any dressings, unless you have been told otherwise. Eat lightly at first, but advance to a low-fiber diet as tolerated. Wound Care: The old stoma site will need to be packed daily with ribbon gauze (1 /2" iodoform, then 1/4" plain packing when wound is smaller). Cover with folded gauze and tape to keep in place. It will be ok to shower with the dressing/ packing OUT, once a routine is established to repack it shortly after. Visiting nurse will be arranged to help monitor the wound, do and and teach dressings. Pain: For pain, you may use and alternate Tylenol (acetaminophen) and/or ibuprofen every 6 hours each as needed; this means that you can take one OR the other at 3-hour intervals. If you are prescribed a Tylenol/narcotic combination for severe pain, use it instead of plain Tylenol as needed and switch back when your pain starts decreasing. Do not take more than 4000mg of acetaminophen in a day. Take medications as prescribed or indicated on the labeling. Follow-up: Call Dr. Avalos's office at [phone] to make your postop appointment (Sunday ~2 weeks after surgery as advised). Clinic is held in the [facility] on the first floor of [facility]. Call the office if you have: * increasing pain not responsive to pain medication * fever of 101F or higher * vomiting * unusual or increasing bleeding or drainage from wounds * increasing redness or swelling at wound sites Also, see Dr. Ramirez within 1-2 weeks. Disposition: HOME - Home Medications Comprehensive Discharge Medication List: Ambulatory Orders Acetaminophen [Tylenol .Regular Strength -] 650 mg PO 0300,0900,1500,2100 tablet 08/16/17 Ibuprofen [Motrin -] 600 mg PO Q6HPO tablet 08/16/17 Oxycodone HCl/Acetaminophen [Percocet 5-325 mg Tablet] 1 tab PO Q4H PRN #12 tablet MDD 6 08/16/17
== END 2017-08-16 13:21 | disposition home or self-care (01) | DRG 346 ==
LOC: JSAMEDAYSX 05:26 → EDSTATUS 08:00 → J6S 16:41
PROVIDERS: ADMIT Surgery; ATTEND Surgery
PROC: 0DJD8ZZ Inspection of Lower Intestinal Tract, Via Natural or Artificial Opening Endoscopic (ICD-10-PCS; 2017-08-13)
PROC: 0HB7XZZ Excision of Abdomen Skin, External Approach (ICD-10-PCS; 2017-08-13)
PROC: 0DSN0ZZ Reposition Sigmoid Colon, Open Approach (ICD-10-PCS; principal; 2017-08-13 08:00)
DX: Z43.3 Encounter for attention to colostomy (principal); Z90.49 Acquired absence of other specified parts of digestive tract; L90.5 Scar conditions and fibrosis of skin
CPT/HCPCS: 36415; 80048; 83735; 85025; 85027; 88304-TC; 88305-TC; 88307-TC; 94760